=== PATIENT | female | born 1940 | race Caucasian/White ===

== ENCOUNTER 2018-06-02 15:08 | Emergency (ER) | payer OTHER ==
[2018-06-02] MEDS ORDERED: FLEET ENEMA ADULT PR ONE (17:52)
[2018-06-02] MEDS ORDERED: MAGNESIUM CITRATE 300 ML BOT ONE (17:53)
--- NOTE | 2018-06-02 17:57 | RAD REPORT ---
EXAM DESCRIPTION: RAD - Abdomen 1 View (KUB) - 06/02/2018 5:51 pm CLINICAL HISTORY: constipation, rectal pain Pain COMPARISON: No comparisons FINDINGS: The bowel gas pattern is non-obstructive. No evidence of free air or pneumatosis. Small ca lcification projects in the region of the left kidney. Cholecystectomy clips. Prominent stool is seen retained in the rectum. IMPRESSION: Prominent stool is retained in the rectum.
--- NOTE | 2018-06-02 18:42 | ER ---
Nurse's Notes [facility] Name: Charlene Stokes Age: 77 yrs Sex: Female : 1940 Arrival Date: 06/02/2018 Time: 15:09 Bed 15 Private MD: Garcia Eduardo Diagnosis: Constipation, unspecified Presentation: 06/02 15:39 Transition of care: patient was not received from another setting of care. Onset of tw2 symptoms was June 02, 2018. Risk Assessment: Do you want to hurt yourself or someone else? Patient reports no desire to harm self or others. Initial Sepsis Screen: Does the patient meet any 2 criteria? No. Patient's initial sepsis screen is negative. Does the patient have a suspected source of infection? No. Patient's initial sepsis screen is negative. Care prior to arrival: None. 15:39 Method Of Arrival: Wheelchair tw2 15:42 Acuity: KELLE 3 tw2 15:46 Presenting complaint: Patient states: pt has been taking cipro for UTI and it has been tw2 about 4 days since last BM, +nausea, possible rectal prolapse. Historical: - Allergies: 15:41 PENICILLINS; tw2 - Home Meds: 15:41 Plavix Oral [Active]; Metoprolol Tartrate Oral [Active]; Crestor Oral [Active]; tw2 Glimepiride Oral [Active]; Aspirin Oral [Active]; - PSHx: 15:41 heart valve replacement; Hysterectomy; Appendectomy; Cholecystectomy; tw2 - Immunization history:: Adult Immunizations. - Social history:: Smoking status: . - Ebola Screening: : Patient denies travel to an Ebola-affected area in the 21 days before illness onset. Screenin:38 Abuse screen: Denies threats or abuse. Nutritional screening: No deficits noted. tw2 Tuberculosis screening: No symptoms or risk factors identified. Fall Risk Secondary diagnosis (15 points) impaired mobility. Assessment: 15:47 General: Appears in no apparent distress. unkempt, Behavior is calm, cooperative, tw2 appropriate for age. General: Smells of animal odor. Pain: Complains of pain in abdomen. Neuro: Level of Consciousness is awake, alert, obeys commands, Oriented to person, place, time, situation. Cardiovascular: Denies chest pain, shortness of breath, Heart tones S1 S2 Patient's skin is warm and dry. Respiratory: Airway is patent Respiratory effort is even, unlabored, Respiratory pattern is regular, symmetrical, Breath sounds are clear bilaterally. GI: Bowel sounds present X 4 quads. Abd is soft X 4 quads Reports constipation, nausea. : Reports recent uti. EENT: No signs and/or symptoms were reported regarding the EENT system. Derm: No signs and/or symptoms reported regarding the dermatologic system. Musculoskeletal: Range of motion: intact in all extremities. 16:53 Reassessment: Patient appears in no apparent distress at this time. No changes from tw2 previously documented assessment. Patient and/or family updated on plan of care and expected duration. Pain level reassessed. Patient is alert, oriented x 3, equal unlabored respirations, skin warm/dry/pink. pt reports bm "but it was like a few small little pellets". 17:48 Reassessment: Patient appears in no apparent distress at this time. No changes from tw2 previously documented assessment. Patient and/or family updated on plan of care and expected duration. Pain level reassessed. Patient is alert, oriented x 3, equal unlabored respirations, skin warm/dry/pink. 18:48 Reassessment: Patient appears in no apparent distress at this time. Patient and/or tw2 family updated on plan of care and expected duration. Pain level reassessed. Patient is alert, oriented x 3, equal unlabored respirations, skin warm/dry/pink. pt had LARGE BM and states "i feel much better now" Patient states feeling better. Patient states symptoms have improved. Vital Signs: 15:45 BP 156 / 68; Pulse 81; Resp 17; Temp 98(TE); Pulse Ox 99% on R/A; Weight 81.65 kg (R); tw2 Height 5 ft. 3 in. (160.02 cm); Pain 0/10; 16:52 BP 111 / 85; Pulse 66; Resp 17; Pulse Ox 100% on R/A; tw2 17:48 BP 137 / 55; Pulse 86; Resp 17; Pulse Ox 100% on R/A; tw2 18:48 BP 137 / 55; Pulse 73; Resp 17; Pulse Ox 99% on R/A; tw2 15:45 Body Mass Index 31.89 (81.65 kg, 160.02 cm) tw2 ED Course: 15:09 Patient arrived in ED. 15:10 Garcia Eduardo DO is Private Physician. mr 15:38 Margarita Zavaleta, RN is Primary Nurse. tw2 15:41 Arm band placed on. tw2 15:41 Bed in low position. Call light in reach. Adult w/ patient. Pulse ox on. NIBP on. tw2 15:42 Triage completed. tw2 15:53 Germán Hercules PA is PHCP. [facility] 15:53 Sav Murray MD is Attending Physician. [facility] 17:52 Abdomen 1 View (KUB) XRAY In Process Unspecified. EDMS 18:41 Garcia Eduardo DO is Referral Physician. jm 18:49 No provider procedures requiring assistance completed. Patient did not have IV access tw2 during this emergency room visit. Administered Medications: 17:47 Drug: Magnesium Citrate Liquid 300 ml Route: PO; tw2 18:49 Follow up: Response: No adverse reaction tw2 18:02 Drug: Fleet Enema 133 ml Route: MD; tw2 18:49 Follow up: Response: No adverse reaction; Marked relief of symptoms tw2 Outcome: 18:41 Discharge ordered by . jmm 18:49 Discharged to home ambulatory, with family. tw2 18:49 Condition: stable 18:49 Discharge instructions given to patient, family, Instructed on discharge instructions, follow up and referral plans. medication usage, Demonstrated understanding of instructions, follow-up care, medications, Prescriptions given X 1. 18:50 Patient left the ED. tw2 Signatures: Dispatcher [employer] EDAZ Germán Hercules PA PA [facility] [place] Prakash mr Maragrita Zavaleta, RN RN tw2
--- NOTE | 2018-06-02 18:43 | EDPHYS ---
Physician Documentation [facility] Name: Charlene Stokes Age: 77 yrs Sex: Female : 1940 Arrival Date: 06/02/2018 Time: 15:09 Bed 15 Private MD: Garcia Eduardo ED Physician Sav Murray HPI: 06/02 15:59 This 77 yrs old Female presents to ER via Wheelchair with complaints of jmm Constipation. 15:59 Onset: The symptoms/episode began/occurred today. Patient states she has not had a full jmm bowel movement in approx 5 days. Patient complains of rectal pain. Patient denies abdominal pain, denies fever, denies vomiting. . Historical: - Allergies: 15:41 PENICILLINS; tw2 - Home Meds: 15:41 Plavix Oral [Active]; Metoprolol Tartrate Oral [Active]; Crestor Oral [Active]; tw2 Glimepiride Oral [Active]; Aspirin Oral [Active]; - PSHx: 15:41 heart valve replacement; Hysterectomy; Appendectomy; Cholecystectomy; tw2 - Immunization history:: Adult Immunizations. - Social history:: Smoking status: . - Ebola Screening: : Patient denies travel to an Ebola-affected area in the 21 days before illness onset. ROS: 15:59 Constitutional: Negative for fever, chills, and weight loss, Cardiovascular: Negative jmm for chest pain, palpitations, and edema, Respiratory: Negative for shortness of breath, cough, wheezing, and pleuritic chest pain. 15:59 Abdomen/GI: Positive for constipation. 15:59 All other systems are negative. Exam: 15:59 Head/Face: atraumatic. Eyes: EOMI, no conjunctival erythema appreciated ENT: Moist jmm Mucus Membranes Neck: Trachea midline, Supple Chest/axilla: Normal chest wall appearance and motion. Cardiovascular: Regular rate and rhythm. No edema appreciated Respiratory: Normal respirations, no respiratory distress appreciated 15:59 Constitutional: The patient appears in no acute distress, alert, awake. 15:59 Abdomen/GI: Inspection: abdomen appears normal, Bowel sounds: normal, Palpation: abdomen is soft and non-tender, in all quadrants. 15:59 Back: ROM is normal. 15:59 Musculoskeletal/extremity: ROM: intact in all extremities. 15:59 Skin: Appearance: Color: normal in color. 15:59 Neuro: Orientation: is normal, Mentation: is normal, Memory: is normal. 15:59 Psych: Behavior/mood is pleasant, cooperative. Vital Signs: 15:45 BP 156 / 68; Pulse 81; Resp 17; Temp 98(TE); Pulse Ox 99% on R/A; Weight 81.65 kg (R); tw2 Height 5 ft. 3 in. (160.02 cm); Pain 0/10; 16:52 BP 111 / 85; Pulse 66; Resp 17; Pulse Ox 100% on R/A; tw2 17:48 BP 137 / 55; Pulse 86; Resp 17; Pulse Ox 100% on R/A; tw2 18:48 BP 137 / 55; Pulse 73; Resp 17; Pulse Ox 99% on R/A; tw2 15:45 Body Mass Index 31.89 (81.65 kg, 160.02 cm) tw2 MDM: 15:59 Patient medically screened. stella 18:40 Data reviewed: vital signs, nurses notes. Counseling: I had a detailed discussion with susana the patient and/or guardian regarding: the historical points, exam findings, and any diagnostic results supporting the discharge/admit diagnosis, radiology results, the need for outpatient follow up, to return to the emergency department if symptoms worsen or persist or if there are any questions or concerns that arise at home. ED course: Patient is alert and non toxic in appearance. Symptoms relieved in the ED. KUB consistent with constipation. Not concerning with obstruction. . 06/02 16:05 Order name: Abdomen 1 View (KUB) XRAY; Complete Time: 18:02 [facility] Administered Medications: 17:47 Drug: Magnesium Citrate Liquid 300 ml Route: PO; tw2 18:49 Follow up: Response: No adverse reaction tw2 18:02 Drug: Fleet Enema 133 ml Route: NH; tw2 18:49 Follow up: Response: No adverse reaction; Marked relief of symptoms tw2 Disposition: 06/03 09:47 Co-signature as Attending Physician, Sav Murray MD I agree with the assessment and [facility] plan of care. Disposition: 06/02/18 18:41 Discharged to Home. Impression: Constipation, unspecified. - Condition is Stable. - Discharge Instructions: Constipation, Adult. - Prescriptions for Miralax 17 gram/dose Oral - take 1 packet by ORAL route once daily dilute powder in 8 ounces of water or juice; 1 Pack. - Medication Reconciliation Form, Thank You Letter, Antibiotic Education, Prescription Opioid Use form. - Follow up: Garcia Eduardo DO; When: 2 - 3 days; Reason: Recheck today's complaints, Continuance of care, Re-evaluation by your physician. Signatures: Dispatcher [employer] EDSav Adames MD MD cha Mickail, Joel, PA PA Margarita Adan RN RN tw2 Corrections: (The following items were deleted from the chart) 06/02 18:50 18:41 06/02/2018 18:41 Discharged to Home. Impression: Constipation, unspecified. tw2 Condition is Stable. Forms are Medication Reconciliation Form, Thank You Letter, Antibiotic Education, Prescription Opioid Use. Follow up: Garcia Eduardo; When: 2 - 3 days; Reason: Recheck today's complaints, Continuance of care, Re-evaluation by your physician. susana
[2018-06-02 19:00] VITALS: TEMP 98
[2018-06-02 19:09] VITALS: BP 137/55
[2018-06-02 19:11] VITALS: O2SAT 99
== END 2018-06-02 18:50 | disposition home or self-care (01) ==
LOC: ER 15:08
DX: K59.00 Constipation, unspecified (principal); Z95.2 Presence of prosthetic heart valve; Z79.01 Long term (current) use of anticoagulants; Z79.82 Long term (current) use of aspirin; Z88.0 Allergy status to penicillin
CPT/HCPCS: 74018; 99284

== ENCOUNTER 2019-02-02 11:11 | Emergency (ER) | payer OTHER ==
[2011-07-31 16:17] VITALS: BP 96/56
[2019-02-02] MEDS ORDERED: NA CHLORIDE 0.9% 500 ML ONE (12:03)
[2019-02-02 12:04] LABS: Absolute Lymphocytes (CBC) 1.1 K/uL (0.7-4.9); Basophils % 0.8 % (0-1.3); Hematocrit 27.7 % (36.0-45.0); Lymphocytes % 17.1 % (15.3-44.8); MPV 7.7 fL (7.6-11.3); RBC Red Blood Cell Count 2.87 M/uL (3.86-4.86)
[2019-02-02 12:09] LABS: Anisocytosis 1+; Blood Morphology Comment NOTED (NOT SEEN); Platelet Estimate ADEQ; Urine White Blood Cell Casts OK
[2019-02-02 12:25] LABS: Bilirubin Direct 0.2 mg/dL (0-0.2); Bilirubin Total 0.5 mg/dL (0.2-1.0); Potassium 3.6 mmol/L (3.5-5.1); Protein, Total 6.5 g/dL (6.4-8.2)
[2019-02-02] MEDS ORDERED: PANTOPRAZOLE 40 MG INJ ONE (13:01)
[2019-02-02] MEDS ORDERED: WATER FOR INJ,STERILE 10 ML ONE (13:01)
--- NOTE | 2019-02-02 13:12 | RAD REPORT ---
EXAM DESCRIPTION: CT - Abdomen Pelvis W Contrast - 02/02/2019 12:46 pm CLINICAL HISTORY: Abdominal pain diarrhea COMPARISON: CT lumbar spine 2008 TECHNIQUE: Computed axial tomography of the abdomen pelvis was obtained. 100 cc Isovue-300 was admin istered intravenously. Oral contrast was not requested which limits evaluation of bowel. All CT scans are performed using dose optimization technique as appropriate and may include automated exposure control or mA/KV adjustment according to patient size. 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 Cholecystectomy. Small splenic cysts. Pancreas unremarkable. Small renal cysts. Vascular calcifications are present. The liver, spleen, pancreas, adrenal and kidneys appear unremark able. Large number of diverticula stem from the colon. Minimal stranding adjacent to the sigmoid colon. Spondylosis involves lumbar spine resulting spinal stenosis IMPRESSION: Minimal sigmoid diverticulitis
[2019-02-02 13:17] LABS: Protime INR 1.16
[2019-02-02] MEDS ORDERED: METRONIDAZOLE 500mg IVPB 500 MG/100 ML BAG IV ONE (13:25)
[2019-02-02] MEDS ORDERED: Levofloxacin500mg IV 500 MG/100 ML BAG IV ONE (13:25)
--- NOTE | 2019-02-02 13:28 | ER ---
Nurse's Notes [facility] Name: Charlene Stokes Age: 78 yrs Sex: Female : 1940 Arrival Date: 02/02/2019 Time: 11:14 Bed 23 Private MD: Diagnosis: Gastrointestinal hemorrhage, unspecified;Diverticulitis of large intestine without perforation or abscess without bleeding Presentation: 02/02 11:21 Presenting complaint: Patient states: Blood in stool x "a few days", watery diarrhea ss that began this morning, still with blood in it. Transition of care: patient was not received from another setting of care. Onset of symptoms was January 30, 2019. Risk Assessment: Do you want to hurt yourself or someone else? Patient reports no desire to harm self or others. Initial Sepsis Screen: Does the patient meet any 2 criteria? HR > 90 bpm. Does the patient have a suspected source of infection? No. Patient's initial sepsis screen is negative. Care prior to arrival: None. 11:21 Method Of Arrival: Ambulatory ss 11:21 Acuity: KELLE 2 ss Historical: - Allergies: 11:25 PENICILLINS; ss - PMHx: 11:25 Hypertension; Diabetes - NIDDM; CAD; ss - PSHx: 11:25 heart valve replacement; Hysterectomy; Appendectomy; Cholecystectomy; ss - Immunization history:: Adult Immunizations up to date. - Social history:: Smoking status: Patient/guardian denies using tobacco. - Ebola Screening: : Patient denies exposure to infectious person Patient denies travel to an Ebola-affected area in the 21 days before illness onset. Screenin:50 Abuse screen: Denies threats or abuse. Denies injuries from another. Nutritional ca1 screening: No deficits noted. Tuberculosis screening: No symptoms or risk factors identified. Fall Risk IV access (20 points). Assessment: 11:50 General: Appears in no apparent distress. comfortable, Behavior is calm, cooperative, ca1 appropriate for age. Pain: Denies pain. Neuro: Level of Consciousness is awake, alert, obeys commands, Oriented to person, place, time, situation. Cardiovascular: Heart tones S1 S2 present Capillary refill < 3 seconds Patient's skin is warm and dry. Respiratory: Airway is patent Respiratory effort is even, unlabored, Respiratory pattern is regular, symmetrical, Breath sounds are clear bilaterally. GI: Abdomen is flat, non-distended, Bowel sounds present X 4 quads. Abd is soft and non tender X 4 quads. Reports diarrhea, bloody stool, since couple days ago. : No deficits noted. No signs and/or symptoms were reported regarding the genitourinary system. EENT: No deficits noted. No signs and/or symptoms were reported regarding the EENT system. Derm: Skin is intact, is healthy with good turgor, Skin is pink, warm \\T\\ dry. Musculoskeletal: Circulation, motion, and sensation intact. Capillary refill < 3 seconds, Range of motion: intact in all extremities. 12:30 Reassessment: Patient appears in no apparent distress at this time. Patient and/or ca1 family updated on plan of care and expected duration. Pain level reassessed. Patient is alert, oriented x 3, equal unlabored respirations, skin warm/dry/pink. BM X 1. Loose and bloody. 13:45 Reassessment: Patient appears in no apparent distress at this time. Patient and/or ca1 family updated on plan of care and expected duration. Pain level reassessed. Patient is alert, oriented x 3, equal unlabored respirations, skin warm/dry/pink. 14:25 Reassessment: Patient appears in no apparent distress at this time. Patient is alert, ca1 oriented x 3, equal unlabored respirations, skin warm/dry/pink. Reported BM 2 more. Loose and dark in color. 14:37 Reassessment: Pt c/o "feeling funny". VS checked, stable. Notified provider. Pt ca1 instructed on bedrest and BM on diapers instead of bedside commode. Reassessment: Called report to PAU Weaver at [facility]. Vital Signs: 11:25 BP 155 / 86; Pulse 107; Resp 18; Temp 98.1(TE); Pulse Ox 99% on R/A; Weight 72.57 kg; ss Height 5 ft. 6 in. (167.64 cm); Pain 0/10; 12:30 BP 137 / 78; Pulse 94; Resp 17 S; Pulse Ox 100% on R/A; ca1 13:30 BP 141 / 91; Pulse 91; Resp 17 S; Pulse Ox 99% on R/A; ca1 14:25 BP 153 / 85; Pulse 67; Resp 17; Pulse Ox 100% on R/A; ca1 11:25 Body Mass Index 25.82 (72.57 kg, 167.64 cm) ss ED Course: 11:14 Patient arrived in ED. rg4 11:24 Triage completed. ss 11:25 Arm band placed on right wrist. ss 11:35 Gamaliel Coyle NP is PHCP. pm1 11:35 Cecile Lawson MD is Attending Physician. pm1 11:35 Ольга Gayle RN is Primary Nurse. ca1 11:50 Patient has correct armband on for positive identification. Placed in gown. Bed in low ca1 position. Call light in reach. Side rails up X 1. Pulse ox on. NIBP on. Warm blanket given. 11:50 No provider procedures requiring assistance completed. Initial lab(s) drawn, by nh, ca1 sent to lab. Inserted saline lock: 20 gauge in right antecubital area, using aseptic technique. Blood collected. 12:03 Radiology exam delayed due to lab results not completed at this time. (BUN/Creatinine). vm2 12:47 CT Abd/Pelvis - IV Contrast Only In Process Unspecified. EDMS 12:47 CT completed. Patient tolerated procedure well. Patient moved back from CT. vm2 13:00 Inserted saline lock: 20 gauge in right forearm, using aseptic technique. ,using ca1 aseptic technique. by PAU Burks Blood collected. 13:23 initiated a transfer with Antonietta from the [facility] transfer center. eb 13:[address] Parsons the Hospitalist loss control manager for [facility] with Gamaliel SHELL for eb patient transfer consultation. 14:11 administrative approval given by Antonietta Hernandez / patient has been accepted to [facility] eb 11D [id number] as a direct admit./ Dr. Owen Parsons has accepted the patient in transfer. report to be called to [phone]. 15:19 Patient transferred, IV remains in place. tr5 Administered Medications: 12:06 Drug: NS 0.9% 500 ml Route: IV; Rate: bolus; Site: right antecubital; ca1 12:50 Follow up: IV Status: Completed infusion; IV Intake: 500ml ca1 13:00 Drug: ProTONIX 40 mg Route: IVP; Site: right antecubital; ca1 13:40 Follow up: Response: No adverse reaction ca1 13:25 Drug: Flagyl 500 mg Volume: 100 ml; Route: IVPB; Rate: 200 ml/hr; Infused Over: 30 ca1 mins; Site: right antecubital; 14:01 Follow up: Response: No adverse reaction; IV Status: Completed infusion ca1 13:35 Drug: ProTONIX 8 mg/hr Route: IV; Rate: 25 ml/hr; Site: right forearm; ca1 14:30 Follow up: Response: No adverse reaction; IV Status: Infusion continued upon transfer ca1 14:02 Drug: LevaQUIN 500 mg Volume: 100 ml; Route: IVPB; Infused Over: 60 mins; Site: right ca1 antecubital; 15:00 Follow up: Response: No adverse reaction; IV Status: Completed infusion ca1 Intake: 12:50 IV: 500ml; Total: 500ml. ca1 Outcome: 13:24 ER care complete, transfer ordered by . pm1 15:19 Transferred by ground EMS to [facility], Transfer form completed. tr5 15:19 Condition: stable 15:19 Instructed on the need for transfer. 15:20 Patient left the ED. tr5 Signatures: Dispatcher [employer] EDOneyda Qiu RN RN ss Gamaliel Coyle, SULEMAN CONVEYOR OPERATOR pm1 Lori Bass Enedina Ramírez 2 Arielle Briseno Cheryl, RN RN ca1 Parveen Templeton RN RN tr5 Corrections: (The following items were deleted from the chart) 14:39 14:25 Reassessment: Patient appears in no apparent distress at this time. Patient is ca1 alert, oriented x 3, equal unlabored respirations, skin warm/dry/pink. Reported BM 2 more. Loose and dark in color. ca1
--- NOTE | 2019-02-02 13:29 | EDPHYS ---
Physician Documentation [facility] Name: Charlene Stokes Age: 78 yrs Sex: Female : 1940 Arrival Date: 02/02/2019 Time: 11:14 Bed 23 Private MD: ED Physician Cecile Lawson HPI: 02/02 11:51 This 78 yrs old Female presents to ER via Ambulatory with complaints of pm1 Rectal Bleeding. 11:51 The patient presents to the emergency department with bleeding from the rectum/anus. pm1 Onset: The symptoms/episode began/occurred 3 day(s) ago. Context: the patient has no known special context relating to the rectal area complaint(s). Modifying factors: The symptoms are alleviated by nothing, The symptoms are aggravated by bowel movement. Associate signs and symptoms: Pertinent positives: diarrhea, lower GI bleeding, Pertinent negatives: abdominal pain, constipation, fever, vomiting. The patient has experienced a previous episode, many years ago, due to polyps. The patient has not recently seen a physician, the patient's primary care provider is Dr. Eduardo. 11:51 Patient reports 3 days ago onset of possible melena, dark syrup-like bowel movement. pm1 Patient thought it would self resolve. Reports onset today of watery diarrhea with bright red blood present. No abdominal pain, chest pain, shortness of breath, headache, dizziness. Historical: - Allergies: 11:25 PENICILLINS; ss - PMHx: 11:25 Hypertension; Diabetes - NIDDM; CAD; ss - PSHx: 11:25 heart valve replacement; Hysterectomy; Appendectomy; Cholecystectomy; ss - Immunization history:: Adult Immunizations up to date. - Social history:: Smoking status: Patient/guardian denies using tobacco. - Ebola Screening: : Patient denies exposure to infectious person Patient denies travel to an Ebola-affected area in the 21 days before illness onset. ROS: 11:51 Constitutional: Negative for fever, chills, and weight loss, Eyes: Negative for injury, pm1 pain, redness, and discharge, ENT: Negative for injury, pain, and discharge, Neck: Negative for injury, pain, and swelling, Cardiovascular: Negative for chest pain, palpitations, and edema, Respiratory: Negative for shortness of breath, cough, wheezing, and pleuritic chest pain. 11:51 Back: Negative for injury and pain, : Negative for injury, bleeding, discharge, and swelling, MS/Extremity: Negative for injury and deformity, Skin: Negative for injury, rash, and discoloration, Neuro: Negative for headache, weakness, numbness, tingling, and seizure. 11:51 Abdomen/GI: Positive for diarrhea, rectal bleeding, Negative for abdominal pain, nausea and vomiting, constipation, abdominal cramps. Exam: 11:51 Constitutional: This is a well developed, well nourished patient who is awake, alert, pm1 and in no acute distress. Head/Face: Normocephalic, atraumatic. Eyes: Pupils equal round and reactive to light, extra-ocular motions intact. Lids and lashes normal. Conjunctiva and sclera are non-icteric and not injected. Cornea within normal limits. Periorbital areas with no swelling, redness, or edema. ENT: Nares patent. No nasal discharge, no septal abnormalities noted. Tympanic membranes are normal and external auditory canals are clear. Oropharynx with no redness, swelling, or masses, exudates, or evidence of obstruction, uvula midline. Mucous membranes moist. Neck: Trachea midline, no thyromegaly or masses palpated, and no cervical lymphadenopathy. Supple, full range of motion without nuchal rigidity, or vertebral point tenderness. No Meningismus. Chest/axilla: Normal chest wall appearance and motion. Nontender with no deformity. No lesions are appreciated. Respiratory: Lungs have equal breath sounds bilaterally, clear to auscultation and percussion. No rales, rhonchi or wheezes noted. No increased work of breathing, no retractions or nasal flaring. Abdomen/GI: Soft, non-tender, with normal bowel sounds. No distension or tympany. No guarding or rebound. No evidence of tenderness throughout. Back: No spinal tenderness. No costovertebral tenderness. Full range of motion. Skin: Warm, dry with normal turgor. Normal color with no rashes, no lesions, and no evidence of cellulitis. MS/ Extremity: Pulses equal, no cyanosis. Neurovascular intact. Full, normal range of motion. 11:51 Neuro: Orientation: is normal, Motor: is normal, moves all fours. Vital Signs: 11:25 BP 155 / 86; Pulse 107; Resp 18; Temp 98.1(TE); Pulse Ox 99% on R/A; Weight 72.57 kg; ss Height 5 ft. 6 in. (167.64 cm); Pain 0/10; 12:30 BP 137 / 78; Pulse 94; Resp 17 S; Pulse Ox 100% on R/A; ca1 13:30 BP 141 / 91; Pulse 91; Resp 17 S; Pulse Ox 99% on R/A; ca1 14:25 BP 153 / 85; Pulse 67; Resp 17; Pulse Ox 100% on R/A; ca1 11:25 Body Mass Index 25.82 (72.57 kg, 167.64 cm) ss MDM: 11:35 Patient medically screened. pm1 11:57 Data reviewed: vital signs. pm1 13:22 Data interpreted: Pulse oximetry: on room air is 99 %. Interpretation: normal. pm1 Counseling: I had a detailed discussion with the patient and/or guardian regarding: the historical points, exam findings, and any diagnostic results supporting the discharge/admit diagnosis, lab results, radiology results, the need to transfer to another facility, [facility] does not immediately have the required specialist. 13:40 Physician consultation: [facility] Hospitalist Jaqueline was contacted at 13:41, regarding pm1 regarding transfer, patient's condition, and will see patient agrees no need for blood transfusion at the moment. 02/02 11:49 Order name: Basic Metabolic Panel; Complete Time: 12:33 pm1 02/02 11:49 Order name: CBC with Diff; Complete Time: 12:13 pm1 02/02 11:49 Order name: Creatinine for Radiology; Complete Time: 12:33 pm1 02/02 11:49 Order name: Hepatic Function; Complete Time: 12:33 pm1 02/02 11:49 Order name: Lipase; Complete Time: 12:33 pm1 02/02 11:49 Order name: PT-INR; Complete Time: 13:36 pm1 02/02 11:49 Order name: Type And Screen; Complete Time: 14:08 pm1 02/02 11:49 Order name: CT Abd/Pelvis - IV Contrast Only; Complete Time: 14:39 pm1 02/02 12:11 Order name: CBC Smear Scan; Complete Time: 12:13 EDMS 02/02 12:33 Order name: Occult Blood--Ancillary eb 02/02 14:33 Order name: ABO/RH no charge; Complete Time: 14:39 EDMS 02/02 11:49 Order name: IV Saline Lock; Complete Time: 11:55 pm1 02/02 11:49 Order name: Labs collected and sent; Complete Time: 11:55 pm1 Administered Medications: 12:06 Drug: NS 0.9% 500 ml Route: IV; Rate: bolus; Site: right antecubital; ca1 12:50 Follow up: IV Status: Completed infusion; IV Intake: 500ml ca1 13:00 Drug: ProTONIX 40 mg Route: IVP; Site: right antecubital; ca1 13:40 Follow up: Response: No adverse reaction ca1 13:25 Drug: Flagyl 500 mg Volume: 100 ml; Route: IVPB; Rate: 200 ml/hr; Infused Over: 30 ca1 mins; Site: right antecubital; 14:01 Follow up: Response: No adverse reaction; IV Status: Completed infusion ca1 13:35 Drug: ProTONIX 8 mg/hr Route: IV; Rate: 25 ml/hr; Site: right forearm; ca1 14:30 Follow up: Response: No adverse reaction; IV Status: Infusion continued upon transfer ca1 14:02 Drug: LevaQUIN 500 mg Volume: 100 ml; Route: IVPB; Infused Over: 60 mins; Site: right ca1 antecubital; 15:00 Follow up: Response: No adverse reaction; IV Status: Completed infusion ca1 Disposition: 02/02/19 13:24 Transfer ordered to [facility]. Diagnosis are Gastrointestinal hemorrhage, unspecified, Diverticulitis of large intestine without perforation or abscess without bleeding. - Reason for transfer: Higher level of care. - Accepting physician is [facility]. - Condition is Stable. - Problem is new. - Symptoms have improved. Addendum: 02/03/2019 16:44 Co-signature as Attending Physician, Cecile Lawson MD. m a2 Signatures: Dispatcher [employer] [facility] Oneyda Parry RN RN ss Gamaliel Coyle, CONDENSER TESTER CONDENSER TESTER pm1 Cecile Lawson MD MD ma2 Ольга Gayle RN RN ca1 Parveen Templeton RN RN tr5 Corrections: (The following items were deleted from the chart) 02/02 15:20 13:24 02/02/2019 13:24 Transfer ordered to [facility]. Diagnosis is tr5 Gastrointestinal hemorrhage, unspecified; Diverticulitis of large intestine without perforation or abscess without bleeding. Reason for transfer: Higher level of care. Accepting physician is [facility]. Condition is Stable. Problem is new. Symptoms have improved. pm1
[2019-02-02] MEDS ORDERED: PANTOPRAZOLE INJ 80 MG in NA CHLORIDE 0.9% 250 ML IV SCH ×4 (14:00)
== END 2019-02-02 15:20 | disposition short-term general hospital (02) ==
LOC: ER 11:11
DX: K57.32 Diverticulitis of large intestine without perforation or abscess without bleeding (principal); I10 Essential (primary) hypertension; Z88.0 Allergy status to penicillin
CPT/HCPCS: 85025; 80048; 36415; 86900; 86850; 85610; 86901; 80076; 83690; 74177; 99285; Q9967; C9113 ×2; J7030; J7040; 82272; 96361; 96365; 96367; 96368; 96375

== ENCOUNTER 2019-02-28 10:16 | Emergency (ER) | payer OTHER ==
--- OUTSIDE RECORDS SUMMARY | 2019-02-28 10:18 | XMS REPORT ---
:1940 [facility] Address [address] [place] [address] Dr. Fish [address] [place] [id number] Care Team Providers Name Role Phone Unavailable Unavailable Unavailable Problems This patient has no known problems. Allergies, Adverse Reactions, Alerts This patient has no known allergies or adverse reactions. Medications This patient has no known medications.
[2019-02-28 10:49] LABS: Absolute Lymphocytes (CBC) 0.8 K/uL (0.7-4.9); Basophils % 1.1 % (0-1.3); Hematocrit 34.1 % (36.0-45.0); RBC Red Blood Cell Count 3.46 M/uL (3.86-4.86)
--- NOTE | 2019-02-28 10:55 | RAD REPORT ---
EXAM DESCRIPTION: RAD - Chest Single View - 02/28/2019 10:44 am CLINICAL HISTORY: Stroke protocol chest film, left-sided numbness, weakness and shortness of breath COMPARISON: June 2014 TECHNIQUE: AP portable chest image was obtained 1041 hours . FINDINGS: Lung volumes are relatively low but clear of a peripheral mass or consolidation. No failur e or volume overload. Interstitial pattern is stable. Heart and vasculature are normal. No measurable pleural effusion and no pneumothorax. No acute bony abnormality seen. No acute aortic findings suspe cted. IMPRESSION: No acute cardiopulmonary process.
[2019-02-28 10:56] LABS: Protime INR 1.02
[2019-02-28 11:02] LABS: Potassium 3.7 mmol/L (3.5-5.1)
--- NOTE | 2019-02-28 11:05 | RAD REPORT ---
EXAM DESCRIPTION: CT - Ct Stroke Brain Wo Cont - 02/28/2019 10:48 am CLINICAL HISTORY: WEAKNESS Headache, CVA symptomology COMPARISON: HEAD BRAIN W O CONTRAST dated 07/18/2014 TECHNIQUE: All CT scans are performed using dose optimization technique as appropriate and may inclu de automated exposure control or mA/KV adjustment according to patient size. FINDINGS: No intracranial hemorrhage, hydrocephalus or extra-axial fluid collection.Moderate general ized brain atrophy is present with moderate periventricular and deep white matter chronic microvascul ar ischemic changes.No areas of brain edema or evidence of midline shift. The paranasal sinuses and mastoids are clear. The calvarium is intact. Vertebral arteries are heavily calcified. IMPRESSION: No acute intracranial abnormality. The findings were discussed with Vitaliy Kinney on 02/28/2019 at 11 a.m. by telephone.
[2019-02-28] MEDS ORDERED: ASPIRIN 81 MG CHEWABLE TABLET ONE (11:17)
[2019-02-28] MEDS ORDERED: LORazepam 2 MG/ML VIAL ONE (11:39)
--- NOTE | 2019-02-28 12:46 | RAD REPORT ---
EXAM DESCRIPTION: MRI - Brain Wo Cont - 02/28/2019 12:37 pm CLINICAL HISTORY: WEAKNESS Headache, drowsiness, CVA symptomology COMPARISON: Ct Stroke Brain Wo Cont dated 02/28/2019 TECHNIQUE: Multi-sequence, multiplanar MR imaging of the brain was performed without contrast. FINDINGS: No intracranial hemorrhage, hydrocephalus or extra-axial fluid collections.Moderate conflu ent T2/FLAIR hyperintensity in the periventricular and deep white matter is present compatible with c hronic microvascular ischemic changes. No edema or shift of midline structures. No findings to suspec t brain mass.Mild generalized brain atrophy. DWI is negative for acute CVA. Midline structures are normally formed. Mastoid air cells and paranasal sinuses are clear. IMPRESSION: Negative for acute CVA or other acute intracranial abnormality.
[2019-02-28 12:53] LABS: Urine Blood NEGATIVE (NEG); Urine Glucose NEGATIVE (NEG); Urine Protein NEGATIVE (NEG); Urine Specific Gravity 1.015 (1.005-1.030)
--- NOTE | 2019-02-28 13:25 | ER ---
Nurse's Notes [facility] Name: Charlene Stokes Age: 78 yrs Sex: Female : 1940 Arrival Date: 02/28/2019 Time: 10:18 Bed 4 Private MD: Diagnosis: Transient cerebral ischemic attacks and related syndromes Presentation: 02/28 10:30 Presenting complaint: Patient states: noticed left arm weakness when she got up at 7 am iw today, also had left leg weakness, no drift in arm, states weakness is improving but not completely resolved, was taken off plavix a month ago due to GI bleed, last known well is 1130 pm yesterday. Transition of care: patient was not received from another setting of care. Onset of symptoms was February 27, 2019. Risk Assessment: Do you want to hurt yourself or someone else? Patient reports no desire to harm self or others. Initial Sepsis Screen: Does the patient meet any 2 criteria? No. Patient's initial sepsis screen is negative. Does the patient have a suspected source of infection? No. Patient's initial sepsis screen is negative. Care prior to arrival: None. 10:30 Method Of Arrival: Wheelchair iw 10:30 Acuity: KELLE 2 iw 10:35 No acute neurological deficit is noted. The patients blood glucose was checked before iw arriving to the hospital and was found to be normal. Triage Assessment: 11:00 The onset of the patients symptoms was more than six hours ago. General: Behavior is vc calm, cooperative. General: Appears in no apparent distress. well groomed. 11:00 The onset of the patients symptoms was February 27, 2019 at 23:00. Neuro: Reports. vc Stroke Activation: Symptom onset > 6 hours Physician: Stroke Attending; Name: ; Notified At: ; Arrived At: Physician: Chief Stroke Resident; Name: ; Notified At: ; Arrived At: Physician: Stroke Resident; Name: ; Notified At: ; Arrived At: Physician: ED Attending; Name: ; Notified At: ; Arrived At: Physician: ED Resident; Name: ; Notified At: ; Arrived At: Historical: - Allergies: 10:47 PENICILLINS; iw - PMHx: 10:47 CAD; Diabetes - NIDDM; Hypertension; iw - PSHx: 10:47 heart valve replacement; Hysterectomy; Appendectomy; Cholecystectomy; iw - Immunization history:: Adult Immunizations up to date. - Social history:: Smoking status: Patient/guardian denies using tobacco. - Ebola Screening: : Patient negative for fever greater than or equal to 101.5 degrees Fahrenheit, and additional compatible Ebola Virus Disease symptoms Patient denies exposure to infectious person Patient denies travel to an Ebola-affected area in the 21 days before illness onset No symptoms or risks identified at this time. Screenin:12 Abuse screen: Denies threats or abuse. vc 12:52 Nutritional screening: No deficits noted. Tuberculosis screening: No symptoms or risk vc factors identified. Fall Risk IV access (20 points). Total Bartlett Fall Scale indicates No Risk (0-24 pts). Assessment: 10:35 VAN Scoring: Arm Drift: Patients demonstrates NO arm weakness. Patient is VAN Negative. iw 10:50 Patient has been NPO before screening. The patient is alert, and able to follow vc commands. The patient does not exhibit slurred or garbled speech. The patient is not exhibiting difficulty speaking. The patient does not exhibit difficulty understanding words. The patient is able to swallow own secretions with no drooling or need for suction. Patient tolerated one teaspoon of water. No drooling, immediate coughing, gurgling, or clearing of the throat was noted. The patient tolerated 90mL of water. No drooling, immediate coughing, gurgling, or clearing of the throat was noted. The patient passed the bedside swallow screening. Oral medications may be given as ordered. Contact Physician for further diet orders. Provider notified of bedside swallow screening results: Vitaliy ORR-Clint. T-PA (Activase) Screening: Contraindications: Patient reports onset of signs and symptoms of stroke greater than 6 hours ago: Yes. Pain: Complains of pain in left arm. Pain: Complains of pain in left leg. Neuro: Level of Consciousness is awake, alert, obeys commands, Oriented to person, place, time, situation, Denies weakness difficulty swallowing. Cardiovascular: Capillary refill < 3 seconds Edema is 1+ to left midcalf and left ankle. Respiratory: Airway is patent Trachea midline Respiratory effort is even, unlabored. GI: No signs and/or symptoms were reported involving the gastrointestinal system. : No deficits noted. 11:10 Reassessment: Patient states that she had a major GI bleed one week ago where she was vc transfused 3 units PRBCs, Notified provider. 11:30 Reassessment: Pt voices MRI anxiety. AREA SUPERVISOR was notified. . aa5 11:35 Reassessment: Pt refusing Ativan and MRI until she speaks to her grandson. . aa5 11:40 Reassessment: Pt's grandson speaking to pt at this time. Pt agrees to Ativan aa5 administration and agrees to MRI. . 12:45 Reassessment: Patient still away from room for MRI. vc 13:15 Reassessment: Patient is alert, oriented x 3, equal unlabored respirations, skin vc warm/dry/pink. Patient denies pain at this time. Patient states symptoms have improved. Vital Signs: 10:35 BP 169 / 94; Pulse 60; Resp 16; Temp 98.2; Pulse Ox 100% on R/A; Weight 70.76 kg; iw Height 5 ft. 6 in. (167.64 cm); Pain 0/10; 11:00 BP 134 / 108; Pulse 67; Resp 18; Pulse Ox 100% on R/A; vc 11:30 BP 164 / 77; Pulse 58; Resp 16; Pulse Ox 100% ; Pain 0/10; vc 13:39 BP 180 / 88; Pulse 60; Pulse Ox 100% on R/A; Pain 0/10; vc 10:35 Body Mass Index 25.18 (70.76 kg, 167.64 cm) iw NIH Stroke Scale Scores: 10:35 NIHSS Score: 2 iw 11:34 NIHSS Score: 0 la1 ED Course: 10:18 Patient arrived in ED. mr 10:28 Vitaliy Kinney FNP-C [facility]. la1 10:28 Rafa Lockhart MD is Attending Physician. la1 10:37 Yumiko Bajwa RN is Primary Nurse. vc 10:39 Initial lab(s) drawn, by me, sent to lab. Inserted saline lock: 22 gauge in right jb1 antecubital area, using aseptic technique. Blood collected. 10:45 Stroke CXR 1 View In Process Unspecified. EDMS 10:46 Triage completed. iw 10:48 Arm band placed on. iw 10:49 CT Stroke Brain w/o Contrast In Process Unspecified. EDMS 10:55 Patient has correct armband on for positive identification. Bed in low position. Call vc light in reach. Side rails up X 1. 10:55 monitoring engineer on. Pulse ox on. NIBP on. Warm blanket given. vc 11:02 EKG done, by time study technologist. reviewed by Vitaliy YANES. at1 12:36 MRI - Brain Wo Cont In Process Unspecified. EDMS 12:37 MRI completed. Patient tolerated well. em2 12:45 Patient moved back from MRI. vc 13:45 No provider procedures requiring assistance completed. IV discontinued, intact, vc bleeding controlled, No redness/swelling at site. Pressure dressing applied. 13:46 X-ray(s) taken. vc Administered Medications: 11:23 Not Given (Physician Discretion): Aspirin Chewable Tablet 324 mg PO once; 81 mg tablets la1 x 4 11:40 Drug: Ativan 0.5 mg Route: IVP; Site: right antecubital; aa5 11:45 Follow up: Response: No adverse reaction aa5 Point of Care Testing: Blood Glucose: 10:35 Blood Glucose: 205 mg/dL; iw Ranges: Outcome: 13:24 Discharge ordered by . la1 13:44 Patient left the ED. vc 13:45 Discharged to home ambulatory, Instructed to f/u with neurology. vc 13:45 Condition: improved 13:45 Discharge instructions given to patient, family, Instructed on discharge instructions, follow up and referral plans. Demonstrated understanding of instructions, follow-up care. NIH Stroke Scale - NIH Stroke Score Date: 02/28/2019 Time: 10:35 Total Score = 2 1a. Level of Consciousness (LOC) - 0(Alert) 1b. Level of Consciousness (LOC) (Year \T\ Age) - 0(Both) 1c. LOC Commands (Open \T\ Closes Eyes/Painter Assistant) - 0(Both) 2. Best Gaze (Lateral Gaze Paresis) - 0(Normal) 3. Visual Field Loss - 0(No visual loss) 4. Facial Palsy - 0(Normal) 5a. Left Arm: Motor (10-second hold) - 0(No drift) 5b. Right Arm: Motor (10-second hold) - 0(No drift) 6a. Left Leg: Motor (5-second hold - always test supine) - 1(Drift) 6b. Right Leg: Motor (5-second hold - always test supine) - 0(No drift) 7. Limb Ataxia (finger/nose \T\ heel/tejeda - test with eyes open) - 0(Absent) 8. Sensory Loss (pinprick arms/legs/face) - 1(Mild to moderate loss) 9. Best Language: Aphasia (description/naming/reading) - 0(No aphasia) 10. Dysarthria (speech clarity - read or repeat words) - 0(Normal) 11. Extinction and Inattention (visual/tactile/auditory/spatial/personal) - 0(No abnormality) Initials: NIH Stroke Scale - NIH Stroke Score Date: 02/28/2019 Time: 11:34 Total Score = 0 1a. Level of Consciousness (LOC) - 0(Alert) 1b. Level of Consciousness (LOC) (Year \T\ Age) - 0(Both) 1c. LOC Commands (Open \T\ Closes Eyes/Painter Assistant) - 0(Both) 2. Best Gaze (Lateral Gaze Paresis) - 0(Normal) 3. Visual Field Loss - 0(No visual loss) 4. Facial Palsy - 0(Normal) 5a. Left Arm: Motor (10-second hold) - 0(No drift) 5b. Right Arm: Motor (10-second hold) - 0(No drift) 6a. Left Leg: Motor (5-second hold - always test supine) - 0(No drift) 6b. Right Leg: Motor (5-second hold - always test supine) - 0(No drift) 7. Limb Ataxia (finger/nose \T\ heel/tejeda - test with eyes open) - 0(Absent) 8. Sensory Loss (pinprick arms/legs/face) - 0(Normal) 9. Best Language: Aphasia (description/naming/reading) - 0(No aphasia) 10. Dysarthria (speech clarity - read or repeat words) - 0(Normal) 11. Extinction and Inattention (visual/tactile/auditory/spatial/personal) - 0(No abnormality) Initials: la1 Signatures: Dispatcher [employer] Ochoa Hinds jb1 PrakashAfrica Irene, RN PAU iw Yasmin Mcdaniels RN RN aa5 Krishna Wu em2 Pat Ramírez, clinical resource manager EKG Tat1 Vitaliy Kinney, BIOMASS PLANT TECHNICIAN-C BIOMASS PLANT TECHNICIAN-Cla1 Yumiko Bajwa RN RN vc Corrections: (The following items were deleted from the chart) 10:49 10:48 VAN Scoring: Arm Drift: Patients demonstrates NO arm weakness. Patient is iw VAN Negative. iw 10:49 10:48 NIHSS Score: 2 [facility] 12:51 10:50 Patient has been NPO before screening. The patient is alert, and able to vc follow commands. The patient does not exhibit slurred or garbled speech. The patient is not exhibiting difficulty speaking. The patient does not exhibit difficulty understanding words. The patient is able to swallow own secretions with no drooling or need for suction. Patient tolerated one teaspoon of water. No drooling, immediate coughing, gurgling, or clearing of the throat was noted. The patient passed the bedside swallow screening. Oral medications may be given as ordered. Contact Physician for further diet orders. Provider notified of bedside swallow screening results: Vitaliy Kinney BIOMASS PLANT TECHNICIAN-C vc 12:55 12:52 General: Behavior is vc vc 12:55 12:52 The onset of the patients symptoms was more than six hours ago vc vc 12:55 12:52 General: Appears in no apparent distress. well groomed, vc vc 13:52 12:00 Reassessment: Patient still away from room for MRI. vc vc
--- NOTE | 2019-02-28 13:25 | EDPHYS ---
Physician Documentation [facility] Name: Charlene Stokes Age: 78 yrs Sex: Female : 1940 Arrival Date: 02/28/2019 Time: 10:18 Bed 4 Private MD: ED Physician Rafa Lockhart HPI: 02/28 11:28 This 78 yrs old Female presents to ER via Wheelchair with complaints of Left la1 side Numbness. 11:28 The patient's problem is reported as weakness, in the left upper extremity, in the left la1 lower extremity. Onset: The symptoms/episode began/occurred pt went to sleep at 1130, woke up with left sided arm and leg weakness that has since resolved. 11:31 Associated signs and symptoms: Pertinent negatives: headache, vomiting. Modifying la1 factors: The patient symptoms are alleviated by nothing, the patient symptoms are aggravated by nothing. Patient's baseline: Neuro: alert and fully oriented, Motor: no deficits, Ambulation: walks without assistance, Speech: normal. Historical: - Allergies: 10:47 PENICILLINS; iw - PMHx: 10:47 CAD; Diabetes - NIDDM; Hypertension; iw - PSHx: 10:47 heart valve replacement; Hysterectomy; Appendectomy; Cholecystectomy; iw - Immunization history:: Adult Immunizations up to date. - Social history:: Smoking status: Patient/guardian denies using tobacco. - Ebola Screening: : Patient negative for fever greater than or equal to 101.5 degrees Fahrenheit, and additional compatible Ebola Virus Disease symptoms Patient denies exposure to infectious person Patient denies travel to an Ebola-affected area in the 21 days before illness onset No symptoms or risks identified at this time. ROS: 11:32 Constitutional: Negative for fever, chills, and weight loss, Eyes: Negative for injury, la1 pain, redness, and discharge, ENT: Negative for injury, pain, and discharge, Neck: Negative for injury, pain, and swelling, Cardiovascular: Negative for chest pain, palpitations, and edema, Respiratory: Negative for shortness of breath, cough, wheezing, and pleuritic chest pain, Abdomen/GI: Negative for abdominal pain, nausea, vomiting, diarrhea, and constipation, Back: Negative for injury and pain, : Negative for injury, bleeding, discharge, and swelling, MS/Extremity: Negative for injury and deformity, Neuro: Negative for headache, weakness, numbness, tingling, and seizure. Exam: 11:32 Radiologist reports: no acute findings, chronic changes la1 11:32 Constitutional: This is a well developed, well nourished patient who is awake, alert, and in no acute distress. Head/Face: Normocephalic, atraumatic. Eyes: Pupils equal round and reactive to light, extra-ocular motions intact. Periorbital areas with no swelling, redness, or edema. ENT: Nares patent. No nasal discharge, no septal abnormalities noted. Tympanic membranes are normal and external auditory canals are clear. Oropharynx with no redness, swelling, or masses, exudates, or evidence of obstruction, uvula midline. Mucous membranes moist. Neck: Trachea midline, no thyromegaly or masses palpated, and no cervical lymphadenopathy. Supple, full range of motion without nuchal rigidity, or vertebral point tenderness. No Meningismus. Chest/axilla: Normal chest wall appearance and motion. Nontender with no deformity. No lesions are appreciated. Cardiovascular: Regular rate and rhythm with a normal S1 and S2. No gallops, murmurs, or rubs. Normal PMI, no JVD. No pulse deficits. 11:32 Respiratory: Lungs have equal breath sounds bilaterally, clear to auscultation No rales, rhonchi or wheezes noted. No increased work of breathing, no retractions or nasal flaring. Abdomen/GI: Soft, non-tender, with normal bowel sounds. No distension or tympany. No guarding or rebound. No evidence of tenderness throughout. Back: No spinal tenderness. No costovertebral tenderness. Full range of motion. Neuro: Awake and alert, GCS 15, oriented to person, place, time, and situation. Cranial nerves II-XII grossly intact. . Sensory grossly intact. Cerebellar exam normal. 15:21 ECG was reviewed by the Attending Physician. la1 Vital Signs: 10:35 BP 169 / 94; Pulse 60; Resp 16; Temp 98.2; Pulse Ox 100% on R/A; Weight 70.76 kg; iw Height 5 ft. 6 in. (167.64 cm); Pain 0/10; 11:00 BP 134 / 108; Pulse 67; Resp 18; Pulse Ox 100% on R/A; vc 11:30 BP 164 / 77; Pulse 58; Resp 16; Pulse Ox 100% ; Pain 0/10; vc 13:39 BP 180 / 88; Pulse 60; Pulse Ox 100% on R/A; Pain 0/10; vc 10:35 Body Mass Index 25.18 (70.76 kg, 167.64 cm) iw NIH Stroke Scale Scores: 10:35 NIHSS Score: 2 iw 11:34 NIHSS Score: 0 la1 MDM: 10:28 Patient medically screened. la1 13:16 Physician consultation: Jimmy Stephenson MD was called at 13:17, was contacted at 13:17, la regarding consult, outpatient follow-up, Dr. Stephenson states patient should be placed back on her plavix and take 1mg of folic acid daily and FU in his clinic. Does not need to stay in hospital at this time. ED course: CT and MRI show no acute findings, symptoms have completely resolved and pt is at baseline. Neurologist states pt should be OK to go home with plavix and folic acid daily. . 13:26 Data reviewed: vital signs, nurses notes, lab test result(s), radiologic studies, CT la1 scan, MRI, plain films, I have discussed the patient's presentation/case with the attending Emergency Department Physician; and as a result, I will discharge patient. Counseling: I had a detailed discussion with the patient and/or guardian regarding: the historical points, exam findings, and any diagnostic results supporting the discharge/admit diagnosis, the presence of at least one elevated blood pressure reading (>120/80) during this emergency department visit, lab results, radiology results, the need for outpatient follow up, a family practitioner, a neurologist, to return to the emergency department if symptoms worsen or persist or if there are any questions or concerns that arise at home. 02/28 10:31 Order name: Basic Metabolic Panel; Complete Time: 11:04 la1 02/28 10:31 Order name: CBC with Diff; Complete Time: 10:55 la1 02/28 10:31 Order name: Protime (+inr); Complete Time: 11:13 la1 02/28 10:31 Order name: Ptt, Activated; Complete Time: 11:13 la1 02/28 10:48 Order name: Glucose, Ancillary Testing; Complete Time: 10:55 EDMS 12/06 12:33 Order name: Urine Dipstick--Ancillary (enter results); Complete Time: 13:06 eb 02/28 10:31 Order name: CT Stroke Brain w/o Contrast; Complete Time: 11:13 la1 02/28 10:31 Order name: Stroke CXR 1 View; Complete Time: 11:04 la1 02/28 10:31 Order name: EKG; Complete Time: 10:32 la1 02/28 10:31 Order name: Accucheck; Complete Time: 10:39 la1 02/28 10:31 Order name: Cardiac monitoring; Complete Time: 10:39 la1 02/28 11:17 Order name: MRI - Brain Wo Cont; Complete Time: 13:06 la1 02/28 10:31 Order name: EKG - Nurse/Tech; Complete Time: 11:15 la1 02/28 10:31 Order name: IV Saline Lock; Complete Time: 10:39 la1 02/28 10:31 Order name: Labs collected and sent; Complete Time: 10:39 la1 02/28 10:31 Order name: NPO; Complete Time: 10:39 la1 02/28 10:31 Order name: O2 Per Protocol; Complete Time: 10:39 la1 02/28 10:31 Order name: O2 Sat Monitoring; Complete Time: 10:39 la1 02/28 10:31 Order name: Stroke Swallow Screen; Complete Time: 11:15 la1 EC:21 Rate is 53 beats/min. Rhythm is regular. Left axis deviation noted. NH interval is la1 normal. QT interval is normal. No Q waves. T waves are Inverted in lead aVL. No ST changes noted. Administered Medications: 11:23 Not Given (Physician Discretion): Aspirin Chewable Tablet 324 mg PO once; 81 mg tablets la1 x 4 11:40 Drug: Ativan 0.5 mg Route: IVP; Site: right antecubital; aa5 11:45 Follow up: Response: No adverse reaction aa5 Point of Care Testing: Blood Glucose: 10:35 Blood Glucose: 205 mg/dL; iw Ranges: Critical Glucose Levels:Adult <50 mg/dl or >400 mg/dl <40 mg/dl or >180 mg/dl Disposition: 16:46 Co-signature as Attending Physician, Rafa Lockhart MD I agree with the assessment and kdr plan of care. Disposition: 02/28/19 13:24 Discharged to Home. Impression: Transient cerebral ischemic attacks and related syndromes. - Condition is Stable. - Discharge Instructions: Transient Ischemic Attack. - Prescriptions for Plavix 75 mg Oral Tablet - take 1 tablet by ORAL route once daily; 20 tablet. Folic Acid 1 mg Oral Tablet - take 1 tablet by ORAL route once daily; 30 tablet. - Medication Reconciliation Form, Thank You Letter form. - Follow up: Private Physician; When: 2 - 3 days; Reason: Recheck today's complaints, Re-evaluation by your physician. - Problem is new. - Symptoms have improved. - Notes: Watch for signs and symptoms of bleeding or new or worsening neurological symptoms, return to ED immediately is any of these present. Follow up with Dr. Stephenson the neurologist whos information is in your discharge paperwork NIH Stroke Scale - NIH Stroke Score Date: 02/28/2019 Time: 10:35 Total Score = 2 1a. Level of Consciousness (LOC) - 0(Alert) 1b. Level of Consciousness (LOC) (Year \T\ Age) - 0(Both) 1c. LOC Commands (Open \T\ Closes Eyes/Sheather) - 0(Both) 2. Best Gaze (Lateral Gaze Paresis) - 0(Normal) 3. Visual Field Loss - 0(No visual loss) 4. Facial Palsy - 0(Normal) 5a. Left Arm: Motor (10-second hold) - 0(No drift) 5b. Right Arm: Motor (10-second hold) - 0(No drift) 6a. Left Leg: Motor (5-second hold - always test supine) - 1(Drift) 6b. Right Leg: Motor (5-second hold - always test supine) - 0(No drift) 7. Limb Ataxia (finger/nose \T\ heel/tejeda - test with eyes open) - 0(Absent) 8. Sensory Loss (pinprick arms/legs/face) - 1(Mild to moderate loss) 9. Best Language: Aphasia (description/naming/reading) - 0(No aphasia) 10. Dysarthria (speech clarity - read or repeat words) - 0(Normal) 11. Extinction and Inattention (visual/tactile/auditory/spatial/personal) - 0(No abnormality) Initials: NIH Stroke Scale - NIH Stroke Score Date: 02/28/2019 Time: 11:34 Total Score = 0 1a. Level of Consciousness (LOC) - 0(Alert) 1b. Level of Consciousness (LOC) (Year \T\ Age) - 0(Both) 1c. LOC Commands (Open \T\ Closes Eyes/Sheather) - 0(Both) 2. Best Gaze (Lateral Gaze Paresis) - 0(Normal) 3. Visual Field Loss - 0(No visual loss) 4. Facial Palsy - 0(Normal) 5a. Left Arm: Motor (10-second hold) - 0(No drift) 5b. Right Arm: Motor (10-second hold) - 0(No drift) 6a. Left Leg: Motor (5-second hold - always test supine) - 0(No drift) 6b. Right Leg: Motor (5-second hold - always test supine) - 0(No drift) 7. Limb Ataxia (finger/nose \T\ heel/tejeda - test with eyes open) - 0(Absent) 8. Sensory Loss (pinprick arms/legs/face) - 0(Normal) 9. Best Language: Aphasia (description/naming/reading) - 0(No aphasia) 10. Dysarthria (speech clarity - read or repeat words) - 0(Normal) 11. Extinction and Inattention (visual/tactile/auditory/spatial/personal) - 0(No abnormality) Initials: la1 Signatures: Dispatcher [employer] EDMS Rafa Lockhart MD MD kdr Anita Lezama RN RN iw Calderon, Audri, RN RN aa5 Vitaliy Kinney, DELIMER-C DELIMER-Cla1 Yumiko Bajwa RN RN vc Corrections: (The following items were deleted from the chart) 13:44 13:24 02/28/2019 13:24 Discharged to Home. Impression: Transient cerebral vc ischemic attacks and related syndromes. Condition is Stable. Forms are Medication Reconciliation Form, Thank You Letter, Antibiotic Education, Prescription Opioid Use. Follow up: Private Physician; When: 2 - 3 days; Reason: Recheck today's complaints, Re-evaluation by your physician. Problem is new. Symptoms have improved. la1
--- NOTE | 2019-02-28 15:33 | EKG ---
Test Date: 2019-02-28 Test Time: 10:59:07 Histopathologist: LUZ MEASUREMENT RESULTS: Intervals: Rate: 53 SC: 192 QRSD: 116 QT: 442 QTc: 414 Dickinson: P: 62 SC: 192 QRS: -58 T: 118 INTERPRETIVE STATEMENTS: Sinus bradycardia Left axis deviation Septal infarct, age undetermined ST & T wave abnormality, non specific Abnormal ECG Compared to ECG 07/18/2014 18:36:45 Left-axis deviation now present Sinus rhythm no longer present Ventricular premature complex(es) no longer present Myocardial infarct finding still present ST (T wave) deviation still present Electronically Signed On 02-28-19 15:32:51 MEDICAL INFORMATION OFFICER by Slade Larsen
[2019-02-28 16:48] VITALS: BP 169/94; TEMP 98.2; O2SAT 100
== END 2019-02-28 13:44 | disposition home or self-care (01) ==
LOC: ER 10:16
DX: G45.8 Other transient cerebral ischemic attacks and related syndromes (principal); I10 Essential (primary) hypertension; Z88.0 Allergy status to penicillin
CPT/HCPCS: 36415; 70450; 70551; 71045; 80048; 81003; 82947; 85025; 85610; 85730; 93005; 96374; 99285

== ENCOUNTER 2019-11-19 12:26 | Emergency (ER) | payer OTHER ==
--- OUTSIDE RECORDS SUMMARY | 2019-11-19 12:29 | XMS REPORT | Continuity of Care Document ---
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 Keith ro (disorder) Medications Medication Details Route Status Patient Ordering Order Source Instructions Provider Date Plavix PO, 0 Active 04/22/19 [facility] Refill(s) 20 Neuro Crestor PO, Daily, Active 04/22/19 [facility] 0 20 Neuro Refill(s) glimepiride PO, Daily, Active 04/22/19 [facility] 0 20 Neuro Refill(s) metoprolol BID, 0 Active 04/22/19 [facility] tartrate Refill(s) 20 Neuro Allergies, Adverse Reactions, Alerts Substance Category Reaction Severity Reaction Status Date Comments S ource type Reported penicillin Assertion MO^Moderat Drug Active [facility] e allergy Neuro Immunizations No Data Provided for This Section Results No Data Provided for This Section Pathology Reports No Data Provided for This Section Diagnostic Reports No Data Provided for This Section Consultation Notes No Data Provided for This Section Discharge Summaries No Data Provided for This Section History and Physicals No Data Provided for This Section Vital Signs Vital Sign Value Date Comments Source Systolic (mm Hg) 158 04/22/2019 [facility] Diastolic (mm Hg) 77 04/22/2019 [facility] Heart Rate 54 04/22/2019 [facility] Respitory Rate 16 04/22/2019 [facility] Height 157.48 cm 04/22/2019 [facility] Weight 73.636 04/22/2019 [facility] BMI Calculated 29.69 04/22/2019 [facility] Encounters Location Location Encounter Encounter Reason Attending ADM [place] Stat Source Details Type Number For Provider Date Date Visit Outpatient [id number] Robin 04/22 Active [facility] [place] [facility] [id number] Robin 04/22 04/23 [facility] [id number] Robin 06/23 Active [facility] Ambulatory [id number] Robin 06/23 06/23 [facility] Procedures Procedure Code Date Perfomer Comments Source Appendectomy [id number] [facility] Heart valve [id number] [facility] [place] Hyste[facility] [id number] [facility] Assessment and Plan No Data Provided for This Section Plan of Care No Data Provided for This Section Social History Social History Date Source Social History TypeResponse 04/22/2019 [facility] Employment/School 1, 2 Smoking Status Unknown if ever smoked; Exposure to [employer] Smoke Unable to obtain; Cigarette Smoking Last 365 Days Unable to obtain; Reg Smoking Cessation Counseling No entered on: 04/22/19 1P.O.A Son- J Guy sanders medical information t oo Guy-Son Family History No Data Provided for This Section Advance Directives No Data Provided for This Section Functional Status No Data Provided for This Section
--- OUTSIDE RECORDS SUMMARY | 2019-11-19 12:30 | XMS REPORT | Continuity of Care Document ---
:1940 Author Organization [facility] t Address [address] [place] [address] Care Team Providers Name Role Phone Da Velez Attending Clinician Problems Condition Condition Condition Status Onset Resolution Last Treating Co mments Source Name Details Category Date Date Treatment Clinician Date Carotid Problem Active 2019-06-26 Spencer krishna territory 21:58:29 l transient Carotid [place] ischemic territory attack transient (disorder) ischemic attack (disorder) Active Problem 06/26/2019 [facility] Diabetes Problem Active 2019-06-26 Mem oria mellitus 21:58:29 l (disorder) Diabetes He rmann mellitus (disorder) Active Problem 06/26/2019 [facility] Hyperlipid Problem Active 2019-06-26 M emoria emia 21:58:29 l (disorder) Chi n Hyperlipid emia (disorder) Active Problem 06/26/2019 [facility] Hypertensi Problem Active 2019-06-26 M emoria ve 21:58:29 l disorder, [place] systemic Hypertensi arterial ve (disorder) disorder, systemic arterial (disorder) Active Problem 06/26/2019 [facility] Right Problem Active 2019-06-26 Memor ia carotid 21:58:29 l artery Right [place] occlusion carotid (disorder) artery occlusion (disorder) Active Problem 06/26/2019 [facility] Allergies, Adverse Reactions, Alerts Allergy Allergy Status Severity Reaction(s) Onset Inactive Treating Comm ents Source Name Type Date Date Clinician penicill penicill Active MO^Modera Mem oria in in te l [place] Social History Social Habit Start Date Stop Date Quantity Comments Source Social History 2019-04-22 2019-04-22 Becki swain 22:00:38 22:00:38 Medications Ordered Filled Start Stop Current Ordering Indication Dosage Frequency Signature Comments Components Source Medication Medication Date Date Medication? Clinician (SIG) Name Name Plavix Yes PO, 0 Memoria 1 Refill(s) l 21:43: [facility]ammad 00 Crestor 2019- Yes PO, Daily, Spencer krishna - 0 l 21:43: Refill(s) [place] 00 glimepiride Yes PO, Daily, Memoria 1-28 0 l 21:43: Refill(s) [place] 00 metoprolol Yes BID, 0 Memor ia tartrate 04-22 Refill(s) l 21:43: [facility] 00 Vital Signs Vital Name Observation Time Observation Value Comments Source Systolic (mm Hg) 2019-04-22 21:42:00 Spencer rial [facility] Diastolic (mm Hg) 2019-04-22 21:42:00 Conor Cueva Heart Rate 2019-04-22 21:42:00 [facility] Respitory Rate 2019-04-22 21:42:00 Lars mcpherson [place] Height 2019-04-22 21:42:00 157.48 cm [facility] Weight 2019-04-22 21:42:00 [facility] BMI Calculated 2019-04-22 21:42:00 Lars mcpherson [facility] Procedures Procedure Date / Time Performed Performing Clinician Yesika e Appendectomy [facility] Heart valve replacement [facility] Hysterectomy [facility] Encounters Start End Encounter Admission Attending Care Care Encounter Source Date/Time Date/Time Type Type Clinicians Facility Department ID 2019-06-24 2019-06-24 Outpatient ANDREE Velez [id number] 15:45:00 15:45:00 Robin Roberson 2019-04-22 2019-04-22 Outpatient ANDREE Velez [id number] 14:45:00 23:59:59 Robin 00 Da Results This patient has no known results.
[2019-11-19] MEDS ORDERED: TETANUS & DIPHTHERIA TOX,ADULT 0.5 ML VIAL ONE (13:03)
[2019-11-19] MEDS ORDERED: DERMABOND SKIN ADHESIVE TOP ONE (13:03)
[2019-11-19] MEDS ORDERED: LIDOCAINE 1% MPF 5 ML VIAL ONE (14:07)
--- NOTE | 2019-11-19 15:10 | ER ---
Nurse's Notes [facility] Name: Charlene Stokes Age: 79 yrs Sex: Female : 1940 Arrival Date: 11/19/2019 Time: 12:28 Bed 16 Private MD: Diagnosis: Bitten by cat;Laceration without foreign body of right hand Presentation: 11/18 12:38 Chief complaint: Patient states: "my kitten scratched me". Scratches noted to right aa5 hand, left FA, and under left eye. 12:38 Coronavirus screen: Client denies travel out of the [place] in the last 14 days. At this aa5 time, the client does not indicate any symptoms associated with coronavirus-19. Ebola Screen: Patient negative for fever greater than or equal to 101.5 degrees Fahrenheit, and additional compatible Ebola Virus Disease symptoms. Initial Sepsis Screen: Does the patient meet any 2 criteria? No. Patient's initial sepsis screen is negative. Does the patient have a suspected source of infection? No. Patient's initial sepsis screen is negative. Risk Assessment: Do you want to hurt yourself or someone else? Patient reports no desire to harm self or others. Onset of symptoms was October 2019. 12:38 Method Of Arrival: Ambulatory aa5 12:38 Acuity: KELLE 4 aa5 Historical: - Allergies: 13:08 PENICILLINS; ca1 12:38 PENICILLINS; aa5 - PMHx: 13:08 CAD; Diabetes - NIDDM; Hypertension; ca1 12:38 CAD; Diabetes - NIDDM; Hypertension; aa5 - PSHx: 13:08 heart valve replacement; Hysterectomy; Appendectomy; Cholecystectomy; ca1 12:38 heart valve replacement; Hysterectomy; Appendectomy; Cholecystectomy; aa5 - Immunization history:: Adult Immunizations up to date, Last tetanus immunization: unknown. - Social history:: Smoking status: Patient denies any tobacco usage or history of. - Family history:: not pertinent. - Hospitalizations: : No recent hospitalization is reported. Screenin:08 Abuse screen: Denies threats or abuse. Denies injuries from another. Nutritional ca1 screening: No deficits noted. Tuberculosis screening: No symptoms or risk factors identified. Fall Risk Fall in past 12 months (25 points). Ambulatory Aid- Crutches/Cane/Walker (15 pts). Assessment: 13:05 General: Appears in no apparent distress. comfortable, Behavior is calm, cooperative, ca1 appropriate for age. Pain: Complains of pain in right hand. Neuro: Level of Consciousness is awake, alert, obeys commands, Oriented to person, place, time, situation. Derm: Skin is intact, is healthy with good turgor, Skin is pink, warm \\T\\ dry. Musculoskeletal: Circulation, motion, and sensation intact. Capillary refill < 3 seconds. Injury Description: Laceration sustained to dorsal aspect of middle phalanx of right index finger, palmar aspect of proximal phalanx of right thumb and outer aspect of right palm is jagged, superficial, 0.5 to 2.5 cm long, not bleeding, a small amount of bleeding noted at this time. 14:02 Reassessment: Patient appears in no apparent distress at this time. Patient and/or ca1 family updated on plan of care and expected duration. Pain level reassessed. Patient is alert, oriented x 3, equal unlabored respirations, skin warm/dry/pink. 15:05 Reassessment: Patient appears in no apparent distress at this time. Patient is alert, ca1 oriented x 3, equal unlabored respirations, skin warm/dry/pink. 15:41 Reassessment: Patient appears in no apparent distress at this time. Patient is alert, ca1 oriented x 3, equal unlabored respirations, skin warm/dry/pink. Vital Signs: 12:38 BP 147 / 90; Pulse 81; Resp 16 S; Temp 98.3(O); Pulse Ox 98% on R/A; aa5 14:02 BP 157 / 83; Pulse 71; Resp 15 S; Pulse Ox 100% on R/A; ca1 15:05 BP 163 / 92; Pulse 69; Resp 15 S; Pulse Ox 99% on R/A; ca1 ED Course: 12:28 Patient arrived in ED. ag5 12:38 Ag Gonzalez MD is Attending Physician. rn 12:38 Arm band placed on. aa5 12:43 Ольга Gayle, RN is Primary Nurse. ca1 13:07 Triage completed. aa5 13:08 Patient has correct armband on for positive identification. Bed in low position. Call ca1 light in reach. Side rails up X 1. Pulse ox on. NIBP on. Warm blanket given. 13:08 Patient did not have IV access during this emergency room visit. ca1 13:50 Wound care: soaked wounds to right hand with Betadine and normal saline ,cleaned wounds dh3 to right hand, left forearm and left under eye with chlorhexidine and normal saline. Patient tolerated well. 15:00 Blanquita Whitfield FNP-C is [facility]. snw 15:00 Assist provider with laceration repair on outer aspect of right palm and palmar aspect ca1 of proximal phalanx of right thumb and dorsal aspect of middle phalanx of right index finger that was 2.5 cm. or less using sutures. Set up tray. Performed by Blanquita YANES Dressed with 4X4s, Neosporin, Patient tolerated well. 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 Exp: ca1 05/09/2021. Lot #: [id number]. } Route: IM; Site: right deltoid; 15:13 Follow up: Response: No adverse reaction ca1 Outcome: 15:10 Discharge ordered by . snw 15:42 Discharged to home ambulatory. ca1 15:42 Condition: stable 15:42 Discharge instructions given to patient, Instructed on discharge instructions, follow up and referral plans. no drinking with medication, no driving heavy equipment, medication usage, Demonstrated understanding of instructions, follow-up care, medications, Prescriptions given X 2. 15:43 Patient left the ED. ca1 Signatures: Blanquita Whitfield FNP-C FRONT DESK SPECIALIST-Csnw Ag Gonzalez MD MD rn Calderon, Audri, RN RN 5 Melia Maldonado 3 Ольга Gayle RN RN ca1 Shannon Gold ag5 Corrections: (The following items were deleted from the chart) 13:08 13:08 Fall Risk Fall in past 12 months (25 points). ca1 ca1 15:13 13:08 No provider procedures requiring assistance completed. ca1 ca1 15:13 13:08 Assist provider with laceration repair on outer aspect of right palm and palmar ca1 aspect of proximal phalanx of right thumb and dorsal aspect of middle phalanx of right index finger that was 2.5 cm. or less using sutures. Set up tray. Performed by Blanquita YANES Dressed with 4X4s, Neosporin, Patient tolerated well. ca1
--- NOTE | 2019-11-19 15:10 | EDPHYS ---
Physician Documentation [facility] Name: Charlene Stokes Age: 79 yrs Sex: Female : 1940 Arrival Date: 11/19/2019 Time: 12:28 Bed 16 Private MD: ED Physician Ag Gonzalez HPI: 11/18 14:03 This 79 yrs old Female presents to ER via Ambulatory with complaints of Hand rn Injury, Cat Bite. 14:03 The patient or guardian reports injury, pain. The complaints affect the right hand rn diffusely. 14:03 Onset: The symptoms/episode began/occurred today. Modifying factors: The symptoms are rn alleviated by nothing, the symptoms are aggravated by nothing. Severity of symptoms: At their worst the symptoms were mild, in the emergency department the symptoms are unchanged. The patient has not experienced similar symptoms in the past. The patient has not recently seen a physician. Report cat scratched her, + lacerations to right hand, 1st and second digits. Unknown tetanus status. . Historical: - Allergies: 13:08 PENICILLINS; ca1 12:38 PENICILLINS; aa5 - PMHx: 13:08 CAD; Diabetes - NIDDM; Hypertension; ca1 12:38 CAD; Diabetes - NIDDM; Hypertension; aa5 - PSHx: 13:08 heart valve replacement; Hysterectomy; Appendectomy; Cholecystectomy; ca1 12:38 heart valve replacement; Hysterectomy; Appendectomy; Cholecystectomy; aa5 - Immunization history:: Adult Immunizations up to date, Last tetanus immunization: unknown. - Social history:: Smoking status: Patient denies any tobacco usage or history of. - Family history:: not pertinent. - Hospitalizations: : No recent hospitalization is reported. ROS: 14:03 Constitutional: Negative for fever, chills, and weight loss, Eyes: + scratch under left rn eye Neck: Negative for injury, pain, and swelling, Cardiovascular: Negative for chest pain, palpitations, and edema, Respiratory: Negative for shortness of breath, cough, wheezing, and pleuritic chest pain, MS/Extremity: + lacerations right hand Skin: + laceration to right hand, scratch to left hand, scratch to left periocular region. Neuro: Negative for headache, weakness, numbness, tingling, and seizure. Exam: 14:03 Constitutional: This is a well developed, well nourished patient who is awake, alert, rn and in no acute distress. Head/Face: Normocephalic, + small superficial scratch, subcentimeter under left eye. Eyes: Pupils equal round and reactive to light, extra-ocular motions intact. Lids and lashes normal. Conjunctiva and sclera are non-icteric and not injected. Cornea within normal limits. MS/ Extremity: Pulses equal, no cyanosis. Neurovascular intact. Full, normal range of motion. + 3 cm superficial laceration dorsal base of right thumb, 1.5 cm superficial irregular laceration base of right 2nd digit. No arterial bleeding. Vital Signs: 12:38 BP 147 / 90; Pulse 81; Resp 16 S; Temp 98.3(O); Pulse Ox 98% on R/A; aa5 14:02 BP 157 / 83; Pulse 71; Resp 15 S; Pulse Ox 100% on R/A; ca1 15:05 BP 163 / 92; Pulse 69; Resp 15 S; Pulse Ox 99% on R/A; ca1 Laceration: 15:00 Wound Repair of 4cm ( 1.6in ) subcutaneous laceration to lateral aspect of right hand snw and dorsal aspect of middle phalanx of right index finger. Distal neuro/vascular/tendon intact. 15:00 Wound Repair of 4.2cm ( 1.7in ) subcutaneous laceration to lateral aspect of right hand snw and dorsal aspect of proximal phalanx of right index finger. Linear shaped.. Irregularly shaped.. Distal neuro/vascular/tendon intact. Anesthesia: Local anesthetic administered with 5 mls of 1% lidocaine. Wound prep: Extensive cleansing with betadine by wind energy technician. Skin closed with 11 4-0 Prolene using interrupted sutures and sterile technique. Dressed with Kerlix, non-adherent dressing. Patient tolerated well. MDM: 12:38 Patient medically screened. rn 15:15 Data reviewed: vital signs, nurses notes. Data interpreted: Pulse oximetry: on room air snw is 99 %. Interpretation: normal. Counseling: I had a detailed discussion with the patient and/or guardian regarding: the historical points, exam findings, and any diagnostic results supporting the discharge/admit diagnosis, the presence of at least one elevated blood pressure reading (>120/80) during this emergency department visit, the need for outpatient follow up, to return to the emergency department if symptoms worsen or persist or if there are any questions or concerns that arise at home. Special discussion: I have referred the patient to see his PCP for further evaluation of high blood pressure. I discussed in detail with the patient the higher chance of wound infection based on his presenting history. Based on the history and exam findings, there is no indication for further emergent testing or inpatient evaluation. I discussed with the patient/guardian the need to see the primary care provider for further evaluation of the symptoms. 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 Exp: ca1 05/09/2021. Lot #: [id number]. } Route: IM; Site: right deltoid; 15:13 Follow up: Response: No adverse reaction ca1 Disposition: 16:49 Co-signature as Attending Physician, Ag Gonzalez MD. rn Disposition: 11/19/19 15:10 Discharged to Home. Impression: Bitten by cat, Laceration without foreign body of right hand. - Condition is Stable. - Discharge Instructions: Hypertension, Laceration Care, Adult, Stitches, [place], or Adhesive Wound Closure, Wound Infection, VIS, Tetanus, Diphtheria (Td) - CDC, Wound Care, Animal Bite. - Prescriptions for Tylenol- Codeine #3 300-30 mg Oral Tablet - take 2 tablets by ORAL route every 6 hours As needed; 15 tablet. Doxycycline Hyclate 100 mg Oral Tablet - take 1 tablet by ORAL route every 12 hours; 20 tablet. - Medication Reconciliation Form, Thank You Letter, Antibiotic Education, Prescription Opioid Use form. - Follow up: Private Physician; When: 7 - 10 days; Reason: Recheck today's complaints, Continuance of care, Staple/Suture removal, Re-evaluation by your physician. Follow up: Emergency Department; When: As needed; Reason: Recheck today's complaints, Staple/Suture removal. Signatures: Blanquita Whitfield, GOLF BALL MARKER-C GOLF BALL MARKER-Csnw Ag Gonzalez MD MD rn Calderon, Audri, RN RN aa5 Acob, Ольга, RN RN ca1 Corrections: (The following items were deleted from the chart) 15:43 15:10 11/19/2019 15:10 Discharged to Home. Impression: Bitten by cat; Laceration ca1 without foreign body of right hand. Condition is Stable. Forms are Medication Reconciliation Form, Thank You Letter, Antibiotic Education, Prescription Opioid Use. Follow up: Private Physician; When: 7 - 10 days; Reason: Recheck today's complaints, Continuance of care, Staple/Suture removal, Re-evaluation by your physician. Follow up: Emergency Department; When: As needed; Reason: Recheck today's complaints, Staple/Suture removal. snw
[2019-11-24 11:20] VITALS: TEMP 98.3
[2019-11-24 11:22] VITALS: BP 163/92; O2SAT 99
== END 2019-11-19 15:43 | disposition home or self-care (01) ==
LOC: ER 12:26
PROC: 0JQJ0ZZ Repair Right Hand Subcutaneous Tissue and Fascia, Open Approach (ICD-10-PCS; principal; 2019-11-19)
DX: S61.411A Laceration without foreign body of right hand, initial encounter (principal); W55.01XA Bitten by cat, initial encounter; Y93.9 Activity, unspecified; Y92.9 Unspecified place or not applicable; Z23 Encounter for immunization; I10 Essential (primary) hypertension; Z88.0 Allergy status to penicillin; Z95.4 Presence of other heart-valve replacement
CPT/HCPCS: 90471; 90714; 99284

== ENCOUNTER 2020-02-04 15:16 | Inpatient (IN) | payer OTHER ==
--- OUTSIDE RECORDS SUMMARY | 2020-02-04 15:18 | XMS REPORT | Continuity of Care Document ---
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 Problem 12/15/2019 Misch er artery occlusion Keith ro (disorder) [...] Value Date Comments Source Systolic (mm Hg) 161 12/12/2019 [facility] Diastolic (mm Hg) 69 12/12/2019 [facility] Heart Rate 69 12/12/2019 [facility] Respitory Rate 16 12/12/2019 [facility] Height 152.4 cm 12/12/2019 [facility] Weight 72.273 12/12/2019 [facility] BMI Calculated 31.12 12/12/2019 [facility] Systolic (mm Hg) 158 04/22/2019 [facility] Keith ro Diastolic (mm Hg) 77 04/22/2019 [facility] Ne uro Heart Rate 54 04/22/2019 [facility] Neuro Respitory Rate 16 04/22/2019 [facility] Neuro Height 157.48 cm 04/22/2019 [facility] Neuro Weight 73.636 04/22/2019 [facility] Neuro BMI Calculated 29.69 04/22/2019 [facility] Neuro Encounters Location Location Encounter Encounter Reason Attending ADM DC Stat us Source Details Type Number For Provider Date Date Visit Outpatient [id number] Robin 04/22 Active [facility] Krell /2020 Hammad MNA Outpatient [id number] Robin 04/22 04/23 [facility] Neurology Krell /2019 [facility] [place] Outpatient [id number] Robin 06/23 Active [facility] Kre /2020 Hammad MNA Ambulatory [id number] Robin 06/23 06/23 [facility] Neurology Pre-Reg Krell /2019 [facility] [place] MNA Outside [id number] 12/09 12/11 [facility]rology Medical /2019 [facility] [place] Records Outpatient [id number] Robin 12/11 Active [facility] Krell /2019 Hammad MNA Outpatient [id number] Robin 12/11 12/12 [facility] Neurology Krell /2019 [facility] [place] Outpatient [id number] Robin 09/10 Active [facility] Kre Hammad Procedures Procedure Code Date Perfomer Comments Source Appendectomy [id number] [facility] Neur o Heart valve [id number] [facility] Neuro replacement Hysterectomy [id number] [facility] Neur o Assessment and Plan No Data Provided for This Section Plan of Care No Data Provided for This Section Social History Social History Date Source Social History [facility]/School 1, 2 Smoking Status Unknown if ever smoked; 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
--- OUTSIDE RECORDS SUMMARY | 2020-02-04 15:18 | XMS REPORT | Summary of Care ---
:1940 Author Organization [facility] Address [address] [place] [address]- Encounter HQ Darcie(ALESSANDRO) [id number] Date(s): 12/12/19 - 12/12/19 [facility] [address], [place] [address]- [phone] Discharge Disposition: Home or Self Care Attending Physician: Robin Velez MD Referring Physician: Robin Velez MD Vital Signs Most recent to oldest [Reference Range]: 1 Height 152.4 cm (12/12/19 11:54 AM) Blood Pressure [90-140/60-90 mmHg] 161/69 mmHg *HI* (12/12/19 11:54 AM) Respiratory Rate [14-20 BRMIN] 16 BRMIN (12/12/19 11:54 AM) Peripheral Pulse Rate [60-100 bpm] 69 bpm (12/12/19 11:54 AM) Weight 72.273 kg (12/12/19 11:54 AM) Body Mass Index 31.12 m2 (12/12/19 11:54 AM) Problem List Condition Effective Dates Status Health Status Informant TIA involving carotid Active artery(Confirmed) Diabetes(Confirmed) Active Hyperlipidemia(Confirmed) Active hyperlipidemia(Confirmed) Active Carotid occlusion, right(Confirmed) Active Allergies, Adverse Reactions, Alerts Substance Reaction Severity Status penicillin MO^Moderate Active Medications No Known Medications Results No data available for this section Immunizations No data available for this section Procedures Procedure Date Related Diagnosis Body Site Status Appendectomy Completed Heart valve replacement Comp leted Hysterectomy Completed Social History Social History Type Response Employment/School 1, 2 Smoking Status Unknown if ever smoked; Expo sure to Tobacco Smoke Unable to obtain; Cigarette Smoking Last 365 Days Unable to obtain; Reg Smoking Cessation Counseling No entered on: 12/12/19 1P.O.A Dilia dover medical information too Guy-Son Assessment and Plan No data available for this section
--- OUTSIDE RECORDS SUMMARY | 2020-02-04 15:19 | XMS REPORT | Summary of Care ---
:1940 Author Organization [facility] [place] Address [address] [place] [address]- Encounter HQ Rupalintr_izaiah(FIN) [id number] Date(s): 12/10/19 - 12/11/19 [facility] [address], [place] [id number]- [phone] Vital Signs No data available for this section Problem List Condition Effective Dates Status Health Status Informant TIA involving carotid Active artery(Confirmed) Diabetes(Confirmed) Active Hyperlipidemia(Confirmed) Active hyperlipidemia(Confirmed) Active Carotid occlusion, right(Confirmed) Active Allergies, Adverse Reactions, Alerts Substance Reaction Severity Status penicillin MO^Moderate Active Medications No data available for this section Results No data available for this section [...] on: 12/12/19 1P.O.A Dilia dover medical information rhona Coffman Assessment and Plan No data available for this section
--- OUTSIDE RECORDS SUMMARY | 2020-02-04 15:19 | XMS REPORT | Continuity of Care Document ---
:1940 Author Organization [facility] t Address [address] [place] [address] Care Team Providers Name Role Phone Da Velez Attending Clinician Problems Condition Condition Condition Status Onset Resolution Last Treating Co mments Source Name Details Category Date Date Treatment Clinician Date Carotid Problem Active 2019-12-15 Spencer krishna territory 00:21:29 l transient Carotid [place] ischemic territory attack transient (disorder) ischemic attack (disorder) Active Problem 12/15/2019 [facility] Diabetes Problem Active 2019-12-15 Mem oria mellitus 00:21:29 l (disorder) Diabetes He r[place] mellitus (disorder) Active Problem 12/15/2019 [facility] Hyperlipid Problem Active 2019-12-15 M emoria emia 00:21:29 l (disorder) Chi n Hyperlipid emia (disorder) Active Problem 12/15/2019 [facility] Hypertensi Problem Active 2019-12-15 M emoria ve 00:21:29 l disorder, [place] systemic Hypertensi arterial ve (disorder) disorder, systemic arterial (disorder) Active Problem 12/15/2019 [facility] Right Problem Active 2019-12-15 Memor ia carotid 00:21:29 l artery Right [place] occlusion carotid (disorder) artery occlusion (disorder) Active Problem 12/15/2019 [facility] Allergies, Adverse Reactions, Alerts Allergy Allergy Status Severity Reaction(s) Onset Inactive Treating Comm ents Source Name Type Date Date Clinician penicill penicill Active MO^Modera Mem oria in in te l [place] Social History Social Habit Start Date Stop Date Quantity Comments Source Social History 2019-04-22 2019-04-22 Becki swain 22:00:38 22:00:38 Medications Ordered Filled Start Stop Current Ordering Indication Dosage Frequency Signature Comments Components Source Medication Medication Date Date Medication? Clinician (SIG) Name Name Plavix Yes PO, 0 Memoria 1-28 Refill(s) l 21:43: Hammad 00 Crestor 2019-0 Yes PO, Daily, Spencer krishna 1-28 0 l 21:43: Refill(s) [place] 00 glimepiride 2019-0 Yes PO, Daily, Memoria 1-28 0 l 21:43: Refill(s) Hammad 00 metoprolol 2019- Yes BID, 0 Memor ia tartrate 128 Refill(s) l 21:43: Hammad 00 Vital Signs Vital Name Observation Time Observation Value Comments Source Systolic (mm Hg) 2019-12-12 16:54:00 Spencer rial Hammad Diastolic (mm Hg) 2019-12-12 16:54:00 Mem orial [place] Heart Rate 2019-12-12 16:54:00 [facility] Respitory Rate 2019-12-12 16:54:00 Memori al [place] Height 2019-12-12 16:54:00 152.4 cm [facility] Weight 2019-12-12 16:54:00 [facility] [place] BMI Calculated 2019-12-12 16:54:00 Memori al [place]ammad Systolic (mm Hg) 2019-04-22 21:42:00 Spencer rial Hammad Diastolic (mm Hg) 2019-04-22 21:42:00 Mem orial Hammad Heart Rate 2019-04-22 21:42:00 [facility] [place] Respitory Rate 2019-04-22 21:42:00 Memori al [place] Height 2019-04-22 21:42:00 157.48 cm [facility] Weight 2019-04-22 21:42:00 [facility] [place] BMI Calculated 2019-04-22 21:42:00 Memori al [place] Procedures Procedure Date / Time Performed Performing Clinician [facility] e Appendectomy [facility] [place] [facility] Encounters Start End Encounter Admission Attending Care Care Encounter Source Date/Time Date/Time Type Type Clinicians Facility Department ID 2019-12-12 2019-12-12 Outpatient ANDREE Velez [id number] 11:45:00 23:59:59 Robin Roberson 2019-12-10 2019-12-11 Outpatient ANDREE CANDELARIO [id number] 09:57:19 23:59:59 00 2019-06-24 2019-06-24 Outpatient Krell, [facility] [id number] 15:45:00 15:45:00 Robin Da 2019-04-22 2019-04-22 Outpatient Agustin [facility] [id number] 14:45:00 23:59:59 Robin Da Results This patient has no known results.
[2020-02-04] MEDS ORDERED: NA CHLORIDE 0.9% 500 ML ONE (19:46)
[2020-02-04 20:09] LABS: Basophils % 0.7 % (0-1.3); Hematocrit 27.2 % (36.0-45.0); Lymphocytes % 33.8 % (15.3-44.8); MPV 7.8 fL (7.6-11.3); RBC Red Blood Cell Count 2.76 M/uL (3.86-4.86)
[2020-02-04 20:26] LABS: ALT/SGPT 22 U/L (12-78); AST/SGOT 22 U/L (15-37); Albumin 3.3 g/dL (3.4-5.0); Alkaline Phosphatase 111 U/L (45-117); BUN Blood Urea Nitrogen 25 mg/dL (7-18); Bicarbonate 25 mmol/L (21-32); Bilirubin Direct < 0.1 mg/dL (0-0.2); Bilirubin Total 0.3 mg/dL (0.2-1.0); Glucose Level 134 mg/dL (74-106); Lipase 50 U/L (73-393); Potassium 3.7 mmol/L (3.5-5.1); Protein, Total 7.2 g/dL (6.4-8.2); Sodium Level 140 mmol/L (136-145)
--- NOTE | 2020-02-04 20:41 | RAD REPORT ---
EXAM DESCRIPTION: CT - Abdomen Pelvis W Contrast - 02/04/2020 8:12 pm CLINICAL HISTORY: Abd pain;GI bleed COMPARISON: Abdomen Pelvis W Contrast dated 02/02/2019 TECHNIQUE: Biphasic, helical CT imaging of the abdomen and pelvis was performed following 100 ml non -ionic IV contrast. No oral contrast administered. All CT scans are performed using dose optimization technique as appropriate and may include automated exposure control or mA/KV adjustment according to patient size. FINDINGS: No suspicious findings in the lung bases. No acute liver finding. Numerous surgical clips are seen in the gallbladder fossa creating substantia l metal spray artifact. No lesions of the liver parenchyma seen. Volume loss changes are present in t he pancreatic parenchyma with no acute pancreatic process. No splenic abnormality. No biliary tree di latation. Symmetric renal function is seen with no hydronephrosis or suspicious renal mass. No pyelonephritis o r acute parenchymal process. Renal cysts are present. Dense vascular calcifications are present but n o obstructing or nonobstructing renal or ureteral calculi. Left adrenal 2.6 centimeter mass not clear ly different from the comparison. No right adrenal abnormality. Mostly contracted urinary bladder svitlana ws accentuation of the christianson. This is probably artifact of contraction. However, cystitis cannot be e xcluded. No gastric dilatation or wall thickening. No acute colon process is identified. Patient has moderatel y prominent diverticulosis without diverticulitis or other active process. No free air, free fluid o r inflammatory stranding. No hernia, mass or bulky lymphadenopathy. No suspicious bony findings. Prominent disc and bony degenerative changes are present. Patient has de nse arterial tree calcifications. IMPRESSION: No rectal or colon mass or active colon process identifiable. Patient has moderately pro minent diverticulosis without diverticulitis findings. No acute or active process identifiable. Above detailed findings are not clearly different from 2018.
--- NOTE | 2020-02-04 20:54 | EDPHYS ---
Physician Documentation [facility] Name: Charlene Stokes Age: 79 yrs Sex: Female : 1940 Arrival Date: 02/04/2020 Time: 15:18 Bed 8 Private MD: ED Physician Ag Gonzalez HPI: 02/03 20:07 This 79 yrs old Female presents to ER via Ambulatory with complaints of rn Rectal Bleeding. 20:07 The patient presents to the emergency department with bleeding from the rectum/anus. rn 20:07 Onset: The symptoms/episode began/occurred 3 day(s) ago. Context: the patient has no rn known special context relating to the rectal area complaint(s). Modifying factors: The symptoms are alleviated by nothing, The symptoms are aggravated by bowel movement. Associate signs and symptoms: Pertinent positives: diarrhea, lower GI bleeding, Pertinent negatives: fever. The patient has experienced a previous episode. The patient has not recently seen a physician. Reports dark red blood per rectum, for 3 days, passes blood with flatulence and with bowel movements, reports feels fatigued and generalized weakness. No fever. No vomiting. Reports no abd pain.. Historical: - Allergies: 16:00 PENICILLINS; aa5 - Home Meds: 16:03 Crestor Oral [Active]; Glimepiride Oral [Active]; Metoprolol Tartrate Oral [Active]; aa5 Plavix Oral [Active]; - PMHx: 16:00 CAD; Diabetes - NIDDM; Hypertension; aa5 - PSHx: 16:00 heart valve replacement; Hysterectomy; Appendectomy; Cholecystectomy; aa5 - Immunization history:: Adult Immunizations unknown. - Social history:: Smoking status: Patient denies any tobacco usage or history of. - Family history:: not pertinent. - Hospitalizations: : No recent hospitalization is reported. ROS: 20:07 Constitutional: Negative for fever, chills, and weight loss, Eyes: Negative for injury, rn pain, redness, and discharge, Neck: Negative for injury, pain, and swelling, Cardiovascular: Negative for chest pain, palpitations, and edema, Respiratory: Negative for shortness of breath, cough, wheezing, and pleuritic chest pain, Abdomen/GI: Negative for abdominal pain, nausea, vomiting, and constipation, MS/Extremity: Negative for injury and deformity, Skin: Negative for injury, rash, and discoloration, Neuro: Negative for headache, numbness, tingling, and seizure. Exam: 20:07 Constitutional: This is a well developed, well nourished patient who is awake, alert, rn and in no acute distress. Head/Face: Normocephalic, atraumatic. Eyes: Pupils equal round and reactive to light, extra-ocular motions intact. Lids and lashes normal. Conjunctiva and sclera are non-icteric and not injected. Cornea within normal limits. Periorbital areas with no swelling, redness, or edema. ENT: dry MM Cardiovascular: tachycardic, regular Respiratory: No increased work of breathing, no retractions or nasal flaring. Abdomen/GI: soft, non-tender, non-distended Skin: Warm, dry MS/ Extremity: Pulses equal, no cyanosis. Neurovascular intact. Full, normal range of motion. Equal circumference. Neuro: Awake and alert, GCS 15, oriented to person, place, time, and situation. Vital Signs: 16:00 BP 154 / 81; Pulse 110; Resp 18 S; Temp 98.9(TE); Pulse Ox 99% on R/A; aa5 MDM: 19:15 Patient medically screened. rn 20:51 Differential diagnosis: hemorrhoids, AVM, diverticulosis, diverticulitis, colitis. Data rn reviewed: vital signs, nurses notes, old medical records, lab test result(s), radiologic studies, CT scan, and as a result, I will admit patient. Counseling: I had a detailed discussion with the patient and/or guardian regarding: the historical points, exam findings, and any diagnostic results supporting the discharge/admit diagnosis, lab results, radiology results, the need for further work-up and treatment in the hospital. Response to treatment: the patient's symptoms have mildly improved after treatment, and as a result, I will admit patient. Admission orders: after a detailed discussion of the patient's condition and case, the admit orders are written by me. 02/03 19:25 Order name: Basic Metabolic Panel rn 02/03 19:25 Order name: CBC with Diff rn 02/03 19:25 Order name: Hepatic Function rn 02/03 19:25 Order name: Lipase rn 02/03 19:25 Order name: PT-INR; Complete Time: 20:28 rn 02/03 19:25 Order name: Ptt, Activated; Complete Time: 20:28 02/03 19:25 Order name: CT Abd/Pelvis - IV Contrast Only; Complete Time: 20:47 02/03 19:25 Order name: Type And Screen 02/03 19:26 Order name: Basic Metabolic Panel; Complete Time: 20:28 [facility] 02/03 19:26 Order name: CBC with Automated Diff; Complete Time: 20:28 [facility] 02/03 19:26 Order name: Liver (Hepatic) Function; Complete Time: 20:28 [facility] 02/03 19:26 Order name: Lipase; Complete Time: 20:28 [facility] 02/03 23:25 Order name: CREATININE WHOLE BLOOD [facility] 02/03 23:53 Order name: CBC with Automated Diff; Complete Time: 00:23 [facility] 02/03 19:25 Order name: IV Saline Lock; Complete Time: 19:43 rn 02/03 19:25 Order name: Labs collected and sent; Complete Time: 19:43 rn Administered Medications: 19:43 Drug: NS 0.9% 500 ml Route: IV; Rate: bolus; Site: left forearm; wh Disposition: 02/04/20 20:53 Hospitalization ordered by Brad Berumen for Observation. Preliminary diagnosis are Anemia, unspecified, Diverticulosis of intestine, part unspecified, without perforation or abscess with bleeding, Lower GI bleed. - Bed requested for [facility] ER HOLD. - Status is Observation. bb - Condition is Stable. - Problem is new. - Symptoms have improved. Signatures: Dispatcher [employer] EDMS Rebecca Kelly RN RN bb Ag Gonzalez MD MD rn Calderon, Audri, RN RN aa5 Vitaliy Kinney, BOX CAR BRACER-C BOX CAR BRACER-Cla1 Reyna Joe, RN RN tl1 Remedios Barcenas Corrections: (The following items were deleted from the chart) 21:46 20:53 Hospitalization Ordered by Brad Berumen DO for Observation. Preliminary tl1 diagnosis is Anemia, unspecified; Diverticulosis of intestine, part unspecified, without perforation or abscess with bleeding; Lower GI bleed. Bed requested for Telemetry/MedSurg (observation). Status is Observation. Condition is Stable. Problem is new. Symptoms have improved. rn 02/04 03:00 02/03 21:46 02/04/2020 20:53 Hospitalization Ordered by Brad Berumen DO for bb Observation. Preliminary diagnosis is Anemia, unspecified; Diverticulosis of intestine, part unspecified, without perforation or abscess with bleeding; Lower GI bleed. Bed requested for [facility] ER HOLD. Status is Observation. Condition is Stable. Problem is new. Symptoms have improved. tl1
--- NOTE | 2020-02-04 20:54 | ER ---
Nurse's Notes [facility] Name: Charlene Stokes Age: 79 yrs Sex: Female : 1940 Arrival Date: 02/04/2020 Time: 15:18 Bed 8 Private MD: Diagnosis: Anemia, unspecified;Diverticulosis of intestine, part unspecified, without perforation or abscess with bleeding;Lower GI bleed Presentation: 02/03 16:00 Chief complaint: Patient states: "I am pooping blood, it started on Sunday". Pt denies aa5 nausea/vomiting. Reports diarrhea. Pt denies abd pain. Pt's son states "I think she had colitis before and she bleed that time too". Coronavirus screen: Client denies travel out of the [place] in the last 14 days. At this time, the client does not indicate any symptoms associated with coronavirus-19. Ebola Screen: Patient negative for fever greater than or equal to 101.5 degrees Fahrenheit, and additional compatible Ebola Virus Disease symptoms. Initial Sepsis Screen: Does the patient meet any 2 criteria? No. Patient's initial sepsis screen is negative. Does the patient have a suspected source of infection? No. Patient's initial sepsis screen is negative. Risk Assessment: Do you want to hurt yourself or someone else? Patient reports no desire to harm self or others. Onset of symptoms was January 2020. 16:00 Method Of Arrival: Ambulatory aa5 16:00 Acuity: KELLE 3 aa5 Historical: - Allergies: 16:00 PENICILLINS; aa5 - Home Meds: 16:03 Crestor Oral [Active]; Glimepiride Oral [Active]; Metoprolol Tartrate Oral [Active]; aa5 Plavix Oral [Active]; - PMHx: 16:00 CAD; Diabetes - NIDDM; Hypertension; aa5 - PSHx: 16:00 heart valve replacement; Hysterectomy; Appendectomy; Cholecystectomy; aa5 - Immunization history:: Adult Immunizations unknown. - Social history:: Smoking status: Patient denies any tobacco usage or history of. - Family history:: not pertinent. - Hospitalizations: : No recent hospitalization is reported. Screenin:04 Abuse screen: Denies threats or abuse. Denies injuries from another. Nutritional rr5 screening: No deficits noted. Tuberculosis screening: No symptoms or risk factors identified. Fall Risk IV access (20 points). Total Bartlett Fall Scale indicates No Risk (0-24 pts). Assessment: 19:50 General: Appears in no apparent distress. comfortable, Behavior is calm, cooperative, rr5 appropriate for age. 19:50 Pain: Denies pain. Neuro: Level of Consciousness is awake, alert, obeys commands, rr5 Oriented to person, place, time. Cardiovascular: Capillary refill < 3 seconds Patient's skin is warm and dry. Respiratory: Airway is patent Respiratory effort is even, unlabored, Respiratory pattern is regular, symmetrical. GI: Abdomen is round non-distended, Reports bloody stool. : No signs and/or symptoms were reported regarding the genitourinary system. EENT: No signs and/or symptoms were reported regarding the EENT system. Derm: Skin is fragile, is thin, Skin temperature is warm. Musculoskeletal: Capillary refill < 3 seconds. 20:04 Reassessment: Patient appears in no apparent distress at this time. Patient is alert, rr5 oriented x 3, equal unlabored respirations, skin warm/dry/pink. send to CT scan assisted by ct staff. 20:20 Reassessment: Patient appears in no apparent distress at this time. back from CT scan. rr5 Vital Signs: 16:00 BP 154 / 81; Pulse 110; Resp 18 S; Temp 98.9(TE); Pulse Ox 99% on R/A; aa5 ED Course: 15:18 Patient arrived in ED. ds1 16:00 Arm band placed on. aa5 16:02 Triage completed. aa5 19:15 Ag Gonzalez MD is Attending Physician. rn 19:32 Tra Salinas, PAU is Primary Nurse. rr5 19:50 Inserted saline lock: 20 gauge in left forearm, using aseptic technique. Blood rr5 collected. 20:04 Patient has correct armband on for positive identification. Placed in gown. Bed in low rr5 position. Call light in reach. Pulse ox on. NIBP on. 20:12 CT Abd/Pelvis - IV Contrast Only In Process Unspecified. EDMS 20:52 Brad Berumen DO is Hospitalizing Provider. rn Administered Medications: 19:43 Drug: NS 0.9% 500 ml Route: IV; Rate: bolus; Site: left forearm; Outcome: 20:53 Decision to Hospitalize by Provider. rn 02/04 03:00 Patient left the ED. bb Signatures: Dispatcher [employer] EDUT Gwen Rogers ds1 Rebecca Kelly RN RN bb Ag Gonzalez MD MD rn Calderon, Audri, RN RN aa5 Remedios Barcenas Tra Salinas RN RN rr5
[2020-02-04] MEDS ORDERED: ONDANSETRON 4 MG/2 ML VIAL IV PRN (22:01)
[2020-02-04] MEDS ORDERED: HYDRALAZINE HCL 20 MG/ML VIAL IV PRN (22:01)
[2020-02-04] MEDS ORDERED: SODIUM CHLORIDE 0.9% 10ML INJ IV PRN (22:01)
[2020-02-04] MEDS ORDERED: ACETAMINOPHEN 500 MG TAB PO PRN (22:01)
[2020-02-04 22:27] VITALS: BMI 25.8
[2020-02-04 23:43] LABS: Absolute Lymphocytes (CBC) 1.1 K/uL (0.7-4.9); Basophils % 0.5 % (0-1.3); Hematocrit 21.3 % (36.0-45.0); Lymphocytes % 20.5 % (15.3-44.8); MPV 7.5 fL (7.6-11.3); RBC Red Blood Cell Count 2.17 M/uL (3.86-4.86)
--- NOTE | 2020-02-04 23:47 | P.HP ---
Certification for Inpatient Patient admitted to: Inpatient With expected LOS: >2 Midnights Patient will require the following post-hospital care: None Practitioner: I am a practitioner with admitting privileges, knowledge of patient current condition, hospital course, and medical plan of care. Services: Services provided to patient in accordance with Admission requirements found in Title 42 Section 412.3 of the Code of Federal Regulations <Vitaliy Kinney - Last Filed: 02/04/20 23:41> Patient History Date of Service: 02/04/20 Primary Care Provider: Dr. Rebolledo Reason for admission: LGIB History of Present Illness: 79-year-old female with history of diabetes mellitus type 2, hypertension, hyperlipidemia, coronary artery disease, aortic valve replacement currently on Plavix presents emergency department for bright red blood per rectum. Patient reports that she has had maroon appearing blood in stool approximately 3 to 4 times a day for the past 3 days. 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 Patient reports that she had a lot of testing done at that time, believe she likely had colonoscopy done but cannot be sure. Initial workup in the ED shows hemoglobin 9.8, hematocrit 27.2. CT scan performed showing diverticulosis without diverticulitis. Patient hemodynamically stable. ED provider wishes to admit patient for further evaluation and management. When I saw the patient in the emergency department she is awake, alert, oriented x3. Patient is in no pain, vital signs stable this time. Patient be admitted for further evaluation and management. - Past Medical/Surgical History Has patient received pneumonia vaccine in the past: Yes Diabetic: Yes -: hyperlipidemia -: HTN -: Diabetes mellitus type 2 -: CAD -: appendectomy -: cholecystectomy -: hysterectomy -: heart valve replacement- aortic -: heart stents x6 - Family History Mother History Unknown: Yes -: Hypertension, Other (see notes) Notes: Alzheimers Father History Unknown: Yes -: Cancer Notes: lung cancer/smoker Brother History Unknown: Yes -: Cancer Notes: spinal cancer at 8 mos. - Social History Smoking Status: Never smoker Alcohol use: No CD- Drugs: No Caffeine use: Yes Place of Residence: Home <Vitaliy Kinney - Last Filed: 02/04/20 23:41> Date of Service: 02/05/20 Home medications list reviewed: Yes - Past Medical/Surgical History -: Hyperlipidemia -: History of diverticulosis -: History of GI bleed Psychosocial/ Personal History: Patient lives at home <Brad Berumen - Last Filed: 02/05/20 08:57> Allergies Penicillins Allergy (Mild, Verified 05/21/14 01:18) Hives Home Medications: Clopidogrel Bisulfate [Plavix] 75 mg PO DAILY 07/28/11 Glyburide [Diabeta] 1.25 mg PO DAILY 05/21/14 Metoprolol Tartrate [Lopressor] 100 mg PO DAILY 05/21/14 Rosuvastatin [Crestor*] 5 mg PO BEDTIME 05/21/14 Review of Systems 10-point ROS is otherwise unremarkable Gastrointestinal: Hematochezia, As per HPI <Vitaliy Kinney - Last Filed: 02/04/20 23:41> Physical Examination - Physical Exam General: Alert, In no apparent distress HEENT: Atraumatic, PERRLA, Mucous membr. moist/pink Neck: Supple, 2+ carotid pulse no bruit, No LAD, Without JVD or thyroid abnormality Respiratory: Clear to auscultation bilaterally, Normal air movement Cardiovascular: Regular rate/rhythm, Normal S1 S2 Gastrointestinal: Normal bowel sounds, No tenderness Musculoskeletal: No tenderness Integumentary: No rashes Neurological: Normal gait, Normal speech, Normal strength at 5/5 x4 extr, Normal tone, Normal affect - Studies Laboratory Data (last 24 hrs) 02/04/20 19:38: PT 11.8, INR 1.00, APTT 23.9 L 02/04/20 19:38: WBC 8.8, Hgb 9.8 L, Hct 27.2 L, Plt Count 203 02/04/20 19:38: Sodium 140, Potassium 3.7, BUN 25 H, Creatinine 0.93, Glucose 134 H, Total Bilirubin 0.3, AST 22, ALT 22, Alkaline Phosphatase 111, Lipase 50 L <Vitaliy Kinney - Last Filed: 02/04/20 23:41> - Studies Laboratory Data (last 24 hrs) 02/04/20 19:38: PT 11.8, INR 1.00, APTT 23.9 L 02/04/20 19:38: WBC 8.8, Hgb 9.8 L, Hct 27.2 L, Plt Count 203 02/04/20 19:38: Sodium 140, Potassium 3.7, BUN 25 H, Creatinine 0.93, Glucose 134 H, Total Bilirubin 0.3, AST 22, ALT 22, Alkaline Phosphatase 111, Lipase 50 L 02/04/20 03:30: Hgb Cancelled, Hct Cancelled <Brad Berumen - Last Filed: 02/05/20 08:57> Assessment and Plan - Plan Assessment Suspected lower GI bleed Diabetes mellitus type 2 Hypertension Coronary artery disease Plan Suspected lower GI bleed: Initial hemoglobin 9.8, will trend hemoglobin/hematocrit q.4h x3. Gastroenterology consult in place, spoke with answering service. Give blood products as needed, NPO. Appreciate further input from gastroenterology. Protonix IV. Diabetes mellitus type 2: Q.6h Accu-Chek, sliding scale insulin therapy. Hypertension: P.r.n. medications at this time as patient will be NPO. Coronary artery disease: Hold Plavix. Discharge Plan: Home Plan to discharge in: Greater than 2 days - Advance Directives Does patient have a Living Will: No Does patient have a Durable POA for Healthcare: No - Code Status/Comfort Care Code Status Assessed: Yes (Full code) Critical Care: No Time Spent Managing Pts Care (In Minutes): 55 <Vitaliy Kinney - Last Filed: 02/04/20 23:41> - Plan Case discussed in detail with nurse practitioner. Agree with evaluation, assessment and plan of care. Patient to receive transfusion. Hold Plavix. Will provide platelets. Case discussed with GI and Hematology. Will continue to monitor closely. See progress note for details. <Brad Berumen - Last Filed: 02/05/20 08:57>
[2020-02-05] MEDS ORDERED: NA CHLORIDE 0.9% 250 ML IV SCH (01:00)
[2020-02-05] MEDS ORDERED: NA CHLORIDE 0.9% 1,000 ML ONE (01:44)
[2020-02-05 04:11] LABS: Magnesium 2.1 mg/dL (1.8-2.4); Potassium 3.6 mmol/L (3.5-5.1); Thyroid Stimulating Hormone 2.48 uIU/mL (0.360-3.740)
[2020-02-05] MEDS: NA CHLORIDE 0.9% 1,000 ML IV SCH ×3 (06:06→17:50)
[2020-02-05] MEDS ORDERED: METOPROLOL TARTRATE 5 MG/5 ML INJ IV PRN (06:44)
[2020-02-05] MEDS ORDERED: INSULIN -REGULAR HUMAN 50 UNIT/0.5 ML ML SQ SCH ×2 (07:30→12:00)
[2020-02-05] MEDS ORDERED: GLUCAGON 1 MG/VIAL IM PRN (08:01)
[2020-02-05] MEDS ORDERED: D50W 25 GM/50 ML SYRINGE IV PRN (08:01)
--- NOTE | 2020-02-05 08:56 | P.PN ---
Subjective Date of Service: 02/05/20 Primary Care Provider: Dr. Rebolledo Chief Complaint: LGIB Subjective: Doing well (Patient receiving blood. Patient doing well this time. Patient had some bleeding to the rectum this morning.) Physical Examination - Vital Signs Temperature: 98.0 F Blood Pressure: 127/67 Pulse: 87 Respirations: 16 Pulse Ox (%): 99 - Physical Exam General: Alert, In no apparent distress, Oriented x3, Cooperative HEENT: Atraumatic Neck: Supple Respiratory: Clear to auscultation bilaterally, Normal air movement Cardiovascular: Normal pulses, Regular rate/rhythm Gastrointestinal: Normal bowel sounds, Soft and benign, Non-distended, No tenderness, No masses, No rebound, No guarding Musculoskeletal: No erythema, No tenderness, No warmth Integumentary: No tenderness/swelling, No erythema, No warmth, No cyanosis Neurological: Normal speech, Normal strength at 5/5 x4 extr, Normal tone, Normal affect - Studies Laboratory Data (last 24 hrs) 02/04/20 19:38: PT 11.8, INR 1.00, APTT 23.9 L 02/04/20 19:38: WBC 8.8, Hgb 9.8 L, Hct 27.2 L, Plt Count 203 02/04/20 19:38: Sodium 140, Potassium 3.7, BUN 25 H, Creatinine 0.93, Glucose 134 H, Total Bilirubin 0.3, AST 22, ALT 22, Alkaline Phosphatase 111, Lipase 50 L 02/04/20 03:30: Hgb Cancelled, Hct Cancelled Medications List Reviewed: Yes Assessment & Plan Discharge Plan: Home Plan to discharge in: Greater than 2 days Physician Review Additional Text: Impression: Hematochezia with acute anemia secondary to lower GI bleed likely related to diverticulosis without diverticulitis on Plavix Acute renal injury likely dehydration CAD Hypertension Diabetes mellitus type 2 non-insulin dependent Hyperlipidemia GERD Plan: Hematochezia with acute anemia secondary to lower GI bleed likely related to diverticulosis without diverticulitis on Plavix: Initial hemoglobin 9.8. Repeat 7.5. Patient receiving 2 units of packed red blood cells at this time. Case discussed with GI. Will keep the patient NPO at this time. Suspect diverticulosis. Will cover with Cipro and Flagyl. Continue IV fluids. Continue to monitor hemoglobin closely. Maintain hemoglobin above 7.0. Plavix has been discontinued. Case discussed with hematology. Patient may benefit with platelets. Will provide 1 unit platelets. Will continue to monitor closely. Will discuss further with GI. Patient may require intervention once stable. Anticipate improvement over the next 72 hr. Acute renal injury likely dehydration: Continue IV fluids. Renal function improved. CAD: Plavix discontinued. Will monitor closely. Hypertension: Will provide IV medication as needed. Once taking oral intake with then will switch to oral metoprolol. Diabetes mellitus type 2 non-insulin dependent: Continue Accu-Cheks and sliding scale. Hyperlipidemia: Will continue with medication once taking oral intake. GERD: Suspect GERD at this time. Will continue with Protonix. Await recommendations by GI. Time Spent Managing Pts Care (In Minutes): 55
[2020-02-05] MEDS ORDERED: PANTOPRAZOLE 40 MG INJ IVP SCH (09:00)
[2020-02-05] MEDS: METRONIDAZOLE 500mg IVPB 500 MG/100 ML BAG IV SCH ×2 (09:18→17:43)
[2020-02-05] MEDS: KCL 20 MEQ/100 mL IVPB 20 MEQ/100 ML BAG IV SCH ×2 (09:19→11:15)
[2020-02-05] MEDS ORDERED: KCL 20 MEQ/100 mL IVPB 20 MEQ/100 ML BAG IV ONE (09:25)
[2020-02-05] MEDS ORDERED: CIPROFLOXACIN 400mg IV 0 MG/0 ML BAG IV ONE (09:25)
[2020-02-05] MEDS ORDERED: PANTOPRAZOLE 40 MG INJ ONE (09:30)
[2020-02-05] MEDS ORDERED: METRONIDAZOLE 500mg IVPB 500 MG/100 ML BAG IV ONE (09:30)
[2020-02-05] MEDS ORDERED: INFLUENZA VACCINE (for 3y+) 0.5 ML DOSE IMVAC ONE (10:00)
[2020-02-05] MEDS ORDERED: CIPROFLOXACIN 400mg IV 400 MG/200 ML BAG IV ONE (10:02)
[2020-02-05] MEDS: CIPROFLOXACIN 400mg IV 400 MG/200 ML BAG IV SCH ×2 (11:14→22:14)
[2020-02-05] MEDS ORDERED: NA CHLORIDE 0.9% 50 ML ONE (14:02)
[2020-02-05] MEDS ORDERED: FUROSEMIDE 20 MG/ 2ML VIAL IV ONE (18:00)
[2020-02-05 19:15] LABS: Hematocrit 28.4 % (36.0-45.0)
[2020-02-05] MEDS: INSULIN -REGULAR HUMAN 50 UNIT/0.5 ML ML SQ SCH (21:00)
[2020-02-05] MEDS: ROSUVASTATIN 10 MG TAB PO SCH (22:13)
[2020-02-05] MEDS: PANTOPRAZOLE 40 MG INJ IVP SCH (22:14)
[2020-02-06] MEDS: METRONIDAZOLE 500mg IVPB 500 MG/100 ML BAG IV SCH ×3 (00:38→22:00)
[2020-02-06] MEDS ORDERED: NA CHLORIDE 0.9% 100 ML ONE (03:50)
[2020-02-06] MEDS: NA CHLORIDE 0.9% 1,000 ML IV SCH (04:01)
[2020-02-06 06:31] LABS: Absolute Lymphocytes (CBC) 0.8 K/uL (0.7-4.9); Basophils % 0.7 % (0-1.3); Hematocrit 24.9 % (36.0-45.0); Lymphocytes % 17.7 % (15.3-44.8); MPV 7.8 fL (7.6-11.3); RBC Red Blood Cell Count 2.63 M/uL (3.86-4.86)
[2020-02-06 06:44] LABS: Magnesium 1.9 mg/dL (1.8-2.4); Potassium 3.3 mmol/L (3.5-5.1)
[2020-02-06] MEDS: INSULIN -REGULAR HUMAN 50 UNIT/0.5 ML ML SQ SCH ×4 (07:30→21:00)
[2020-02-06] MEDS ORDERED: POTASSIUM 25 MEQ EFFERV TAB PO ONE ×2 (07:46→19:00)
[2020-02-06] MEDS: CIPROFLOXACIN 400mg IV 400 MG/200 ML BAG IV SCH ×2 (08:34→22:30)
[2020-02-06] MEDS: PANTOPRAZOLE 40 MG INJ IVP SCH ×2 (08:37→21:58)
--- NOTE | 2020-02-06 09:19 | P.PN ---
Subjective Date of Service: 02/06/20 Primary Care Provider: Dr. Rebolledo Chief Complaint: LGIB Subjective: Improving, Doing well Physical Examination - Vital Signs Temperature: 98.2 F Blood Pressure: 154/70 Pulse: 76 Respirations: 15 Pulse Ox (%): 100 - Physical Exam General: Alert, In no apparent distress, Oriented x3, Cooperative HEENT: Atraumatic Neck: Supple Respiratory: Clear to auscultation bilaterally, Normal air movement Cardiovascular: Normal pulses, Regular rate/rhythm Gastrointestinal: Normal bowel sounds, Soft and benign, Non-distended, No tenderness, No masses, No rebound, No guarding Musculoskeletal: No erythema, No tenderness, No warmth Integumentary: No tenderness/swelling, No erythema, No warmth, No cyanosis Neurological: Normal speech, Normal strength at 5/5 x4 extr, Normal tone, Normal affect - Studies Medications List Reviewed: Yes Assessment & Plan Discharge Plan: Home Plan to discharge in: 24 Hours Physician Review Additional Text: Impression: Hematochezia with acute anemia secondary to lower GI bleed related to diverticulosis without diverticulitis on Plavix Acute renal injury likely dehydration CAD Hypertension Diabetes mellitus type 2 non-insulin dependent Hyperlipidemia GERD Plan: Hematochezia with acute anemia secondary to lower GI bleed related to diverticulosis without diverticulitis on Plavix: Continue to hold Plavix. Patient has received 2 units of packed red blood cells. Hemoglobin appears stable. Will continue to monitor hemoglobin. May need further transfusion if hemoglobin below 7.0. Continue IV antibiotic therapy. Case discussed with GI. No intervention required at this time. GI suspects lower GI bleed related to diverticulosis. Will advance diet as tolerated. Anticipate improvement over the next 24-48 hr. Likely discharge within that time if tolerating diet and hemoglobin stable. Patient will require colonoscopy as an outpatient. Acute renal injury likely dehydration: Continue IV fluids. Renal function improved. CAD: Plavix discontinued. Will monitor closely. Hypertension: Will restart medication Diabetes mellitus type 2 non-insulin dependent: Continue Accu-Cheks and sliding scale. Hyperlipidemia: Will continue with medication once taking oral intake. GERD: Suspect GERD at this time. Will continue with Protonix. Time Spent Managing Pts Care (In Minutes): 55
[2020-02-06] MEDS ORDERED: NACHLORIDE 0.45% 1,000 ML IV SCH (10:00)
[2020-02-06 11:05] LABS: Hematocrit 24.6 % (36.0-45.0)
[2020-02-06 17:26] LABS: Hematocrit 23.8 % (36.0-45.0)
[2020-02-06] MEDS: NACHLORIDE 0.45% 1,000 ML IV SCH (18:14)
[2020-02-06] MEDS ORDERED: NA CHLORIDE 0.9% 250 ML IV SCH (19:00)
[2020-02-06] MEDS: ROSUVASTATIN 10 MG TAB PO SCH (20:08)
[2020-02-06] MEDS: METOPROLOL TAR 50 MG TAB PO SCH (20:08)
[2020-02-07] MEDS ORDERED: NA CHLORIDE 0.9% 250 ML ONE (00:27)
[2020-02-07] MEDS: METRONIDAZOLE 500mg IVPB 500 MG/100 ML BAG IV SCH ×3 (05:29→21:55)
[2020-02-07] MEDS: NACHLORIDE 0.45% 1,000 ML IV SCH ×3 (05:30→21:55)
[2020-02-07 06:36] LABS: Absolute Lymphocytes (CBC) 0.9 K/uL (0.7-4.9); Basophils % 0.9 % (0-1.3); Hematocrit 27.2 % (36.0-45.0); Lymphocytes % 23.5 % (15.3-44.8); RBC Red Blood Cell Count 2.88 M/uL (3.86-4.86)
[2020-02-07 07:07] LABS: Potassium 3.6 mmol/L (3.5-5.1)
[2020-02-07] MEDS: INSULIN -REGULAR HUMAN 50 UNIT/0.5 ML ML SQ SCH ×4 (07:30→20:54)
[2020-02-07] MEDS: PANTOPRAZOLE 40 MG INJ IVP SCH ×2 (07:59→20:52)
[2020-02-07] MEDS: METOPROLOL TAR 50 MG TAB PO SCH ×2 (08:00→20:53)
[2020-02-07] MEDS: CIPROFLOXACIN 400mg IV 400 MG/200 ML BAG IV SCH ×2 (08:00→20:53)
[2020-02-07] MEDS ORDERED: POTASSIUM CL SA 10 MEQ TAB PO ONE (09:00)
--- NOTE | 2020-02-07 10:02 | P.PN ---
Subjective Date of Service: 02/07/20 Primary Care Provider: Dr. Rebolledo Chief Complaint: LGIB Subjective: Other (Patient had bowel movement with clots last night. Today she reports bowel movement without blood clot or blood.) Physical Examination - Vital Signs Temperature: 98.3 F Blood Pressure: 133/60 Pulse: 64 Respirations: 18 Pulse Ox (%): 100 - Physical Exam General: Alert, In no apparent distress, Oriented x3, Cooperative HEENT: Atraumatic Neck: Supple Respiratory: Clear to auscultation bilaterally, Normal air movement Cardiovascular: Normal pulses, Regular rate/rhythm Gastrointestinal: Normal bowel sounds, Soft and benign, Non-distended, No tenderness, No masses, No rebound, No guarding Musculoskeletal: No erythema, No tenderness, No warmth Integumentary: No tenderness/swelling, No erythema, No warmth, No cyanosis Neurological: Normal speech, Normal strength at 5/5 x4 extr, Normal tone, Normal affect - Studies Medications List Reviewed: Yes Assessment & Plan Discharge Plan: Home Plan to discharge in: 24 Hours Physician Review Additional Text: Impression: Hematochezia with acute anemia secondary to lower GI bleed related to diverticulosis without diverticulitis on Plavix Acute renal injury likely dehydration CAD Hypertension Diabetes mellitus type 2 non-insulin dependent Hyperlipidemia GERD Plan: Hematochezia with acute anemia secondary to lower GI bleed related to diverticulosis without diverticulitis on Plavix: Continue to hold Plavix. Patient has done well with transfusion. Patient reports 1st stool without blood or blood clots. Continue to advance diet. Continue to monitor hemoglobin. If significantly improved over the next 24 hr will consider discharge tomorrow. Acute renal injury likely dehydration: Continue IV fluids. Renal function improved. CAD: Plavix discontinued. Will monitor closely. Hypertension: Continue medication Diabetes mellitus type 2 non-insulin dependent: Continue Accu-Cheks and sliding scale. Hyperlipidemia: Will continue with medication once taking oral intake. GERD: Suspect GERD at this time. Will continue with Protonix. Time Spent Managing Pts Care (In Minutes): 55
[2020-02-07 16:19] LABS: Hematocrit 30.1 % (36.0-45.0)
[2020-02-07] MEDS: ROSUVASTATIN 10 MG TAB PO SCH (20:52)
[2020-02-07 22:57] LABS: Hematocrit 25.2 % (36.0-45.0)
[2020-02-08] MEDS: METRONIDAZOLE 500mg IVPB 500 MG/100 ML BAG IV SCH ×3 (06:05→21:50)
[2020-02-08 06:30] LABS: Absolute Lymphocytes (CBC) 0.8 K/uL (0.7-4.9); Basophils % 0.6 % (0-1.3); Hematocrit 26.4 % (36.0-45.0); Lymphocytes % 19.1 % (15.3-44.8); MPV 7.6 fL (7.6-11.3); RBC Red Blood Cell Count 2.76 M/uL (3.86-4.86)
[2020-02-08 06:41] LABS: Potassium 3.6 mmol/L (3.5-5.1)
[2020-02-08] MEDS: INSULIN -REGULAR HUMAN 50 UNIT/0.5 ML ML SQ SCH ×4 (07:30→21:00)
[2020-02-08] MEDS ORDERED: POTASSIUM CL SA 10 MEQ TAB PO ONE (09:00)
[2020-02-08] MEDS: METOPROLOL TAR 50 MG TAB PO SCH ×2 (09:04→21:51)
[2020-02-08] MEDS: CIPROFLOXACIN 400mg IV 400 MG/200 ML BAG IV SCH ×2 (09:04→21:50)
[2020-02-08] MEDS: PANTOPRAZOLE 40 MG INJ IVP SCH ×2 (09:05→21:51)
[2020-02-08] MEDS: NACHLORIDE 0.45% 1,000 ML IV SCH ×3 (10:14→21:52)
--- NOTE | 2020-02-08 10:18 | P.PN ---
Subjective Date of Service: 02/08/20 Primary Care Provider: Dr. Rebolledo Chief Complaint: LGIB Subjective: Other (Patient reports improvement. Patient had melanotic stool last night. No abdominal pain, nausea vomiting noted.) Physical Examination - Vital Signs Temperature: 97.8 F Blood Pressure: 121/62 Pulse: 62 Respirations: 18 Pulse Ox (%): 99 - Physical Exam General: Alert, In no apparent distress, Oriented x3, Cooperative HEENT: Atraumatic Neck: Supple Respiratory: Clear to auscultation bilaterally, Normal air movement Cardiovascular: Normal pulses, Regular rate/rhythm Gastrointestinal: Normal bowel sounds, Soft and benign, Non-distended, No tenderness, No masses, No rebound, No guarding Musculoskeletal: No erythema, No tenderness, No warmth Integumentary: No tenderness/swelling, No erythema, No warmth, No cyanosis Neurological: Normal speech, Normal strength at 5/5 x4 extr, Normal tone, Normal affect - Studies Medications List Reviewed: Yes Assessment & Plan Discharge Plan: Home Plan to discharge in: 24 Hours Physician Review Additional Text: Impression: Hematochezia with acute anemia secondary to lower GI bleed related to diverticulosis without diverticulitis on Plavix Acute renal injury likely dehydration CAD Hypertension Diabetes mellitus type 2 non-insulin dependent Hyperlipidemia GERD Plan: Hematochezia with acute anemia secondary to lower GI bleed related to diverticulosis without diverticulitis on Plavix: Previous colonoscopy results from [facility] reviewed. This was done in January of 2019. Patient found to have multiple small and large mouth diverticula throughout the entire colon, evidence of past bleeding was noted. Her Plavix was held at that time. Patient was eventually discharge. There was some consideration at the time to consider CT angiogram of the abdomen if the patient Re bled. This was discussed in detail with GI. Continue to hold Plavix. Patient has received 3 units of packed red blood cells during this hospitalization. Hemoglobin appears to be stable. Will repeat H&H later today. Continue to monitor hemoglobin. Will obtain GI bleeding scan tomorrow to further evaluate. If the patient continues to bleed then will order CT angiogram of the abdomen to further evaluate. Hopefully hemoglobin will stabilize. Will need to consider transfer to [facility] if the patient has continued bleed and requires interventional radiology embolization. Patient may require colectomy in the future if this persists. For now continue to monitor closely. I will turn the service over to the hospitalist team tomorrow. I will go over plan of care with him. Advanced care planning address in detail. 30 min. Plan of care discussed as above with patient. Acute renal injury likely dehydration: Continue IV fluids. Renal function improved. CAD: Plavix discontinued. Will monitor closely. Hypertension: Continue medication Diabetes mellitus type 2 non-insulin dependent: Continue Accu-Cheks and sliding scale. Hyperlipidemia: Will continue with medication once taking oral intake. GERD: Suspect GERD at this time. Prior EGD done January 2019 showed normal esophagus, normal duodenum bulb, nonbleeding diverticulum was found at the area of papilla. Will continue with Protonix. Time Spent Managing Pts Care (In Minutes): 55
[2020-02-08 15:30] LABS: Hematocrit 27.8 % (36.0-45.0)
[2020-02-08] MEDS: ROSUVASTATIN 10 MG TAB PO SCH (21:50)
[2020-02-09 05:40] LABS: Absolute Lymphocytes (CBC) 0.7 K/uL (0.7-4.9); Basophils % 0.7 % (0-1.3); Hematocrit 24.3 % (36.0-45.0); Lymphocytes % 20.2 % (15.3-44.8); RBC Red Blood Cell Count 2.54 M/uL (3.86-4.86)
[2020-02-09 05:47] LABS: Potassium 3.5 mmol/L (3.5-5.1)
[2020-02-09] MEDS: METRONIDAZOLE 500mg IVPB 500 MG/100 ML BAG IV SCH ×3 (06:34→21:15)
[2020-02-09] MEDS: INSULIN -REGULAR HUMAN 50 UNIT/0.5 ML ML SQ SCH ×4 (07:30→20:04)
[2020-02-09] MEDS ORDERED: POTASSIUM 25 MEQ EFFERV TAB PO ONE (09:00)
[2020-02-09] MEDS: CIPROFLOXACIN 400mg IV 400 MG/200 ML BAG IV SCH ×2 (09:10→20:04)
[2020-02-09] MEDS: PANTOPRAZOLE 40 MG INJ IVP SCH ×2 (09:12→20:04)
[2020-02-09] MEDS: METOPROLOL TAR 50 MG TAB PO SCH ×2 (09:14→20:04)
--- NOTE | 2020-02-09 10:54 | RAD REPORT ---
EXAM DESCRIPTION: RAD - Chest Single View - 02/09/2020 3:43 am CLINICAL HISTORY: Picc line placement COMPARISON: None. TECHNIQUE: AP Chest. FINDINGS: Heart is normal in size. Mild aortic atherosclerosis. There is asymmetric left hilar vascu lar crowding due to rotation and positioning. No consolidation. No pneumothorax or pleural fluid. Haz y left upper lobe airspace opacities may represent pneumonitis. Left subclavian PICC line is positioned in the upper right atrial region. There is a metallic plate projecting over the mediastinum. IMPRESSION: 1. Left subclavian PICC line is in the upper right atrial region. No pneumothorax. 2. Possible left upper lobe pneumonitis. Electronically signed by: Rosa Porras DO 02/09/2020 3:52 AM SENIOR QA TESTER Due to temporary technical issues with the PACS/Fluency reporting system, reports are being signed by the in house radiologist without review as a courtesy to ensure prompt reporting. The interpreting r adiologist is fully responsible for the content of the report.
--- NOTE | 2020-02-09 11:46 | P.PN ---
Subjective Date of Service: 02/09/20 Patient had a large bowel movement which had blood in it today. GI bleeding scan is pending. Patient had an endoscopy a year ago which did not reveal any significant abnormalities except for some diverticulums. Patient is scheduled to get a nuclear medicine GI bleed scan. Awaiting results at this time and monitoring H&H closely which has continued is trending downward. Review of Systems 10-point ROS is otherwise unremarkable Physical Examination - Vital Signs Temperature: 98.2 F Blood Pressure: 128/60 Pulse: 59 Respirations: 16 Pulse Ox (%): 98 - Physical Exam General: Alert, In no apparent distress, Oriented x3 Respiratory: Clear to auscultation bilaterally, Normal air movement Cardiovascular: Regular rate/rhythm, Normal S1 S2, No murmurs Gastrointestinal: Normal bowel sounds, Soft and benign, Non-distended, No tenderness Musculoskeletal: No clubbing, No swelling, No tenderness Neurological: Sensation intact, Cranial nerves 3-12 intact - Studies Medications List Reviewed: Yes Assessment & Plan - Problems (Diagnosis) (1) Lower GI bleeding Current Visit: Yes Status: Acute (2) Coronary arteriosclerosis Current Visit: No Status: Acute (3) Diabetes mellitus Current Visit: No Status: Acute (4) History of - hypertension Current Visit: No Status: Acute (5) Hyperlipidemia Current Visit: No Status: Acute (6) Mitral valvuloplasty Current Visit: No Status: Acute - Plan Plan: 1. Continue with IV hydration and PPI drip 2. Continue with IV antibiotics 3. Continue with pain control 4. NPO 5. GI consultation 6. Serial H&H, and we will monitor LFTs and lipase along with electrolytes. 7. GI and DVT prophylaxis Discharge Plan: Home Plan to discharge in: Greater than 2 days - Advance Directives Does patient have a Living Will: No Does patient have a Durable POA for Healthcare: No - Code Status/Comfort Care Code Status Assessed: Yes Code Status: Full Code Critical Care: No Time Spent Managing PTS Care (In Minutes): 35
--- NOTE | 2020-02-09 11:59 | RAD REPORT ---
EXAM DESCRIPTION: NM - GI Blood Loss Imaging - 02/09/2020 9:22 am CLINICAL HISTORY: Gastrointestinal bleeding COMPARISON: None. TECHNIQUE: The patient was administered 23.5 millicuries technetium labeled red blood cells. Dynamic images of the abdomen and pelvis were obtained for 60 minutes FINDINGS: No abnormal radiotracer activity is seen within the bowel. No abnormality displayed IMPRESSION: No evidence of active gastrointestinal bleeding during the examination
[2020-02-09] MEDS: NACHLORIDE 0.45% 1,000 ML IV SCH (13:00)
[2020-02-09] MEDS: ROSUVASTATIN 10 MG TAB PO SCH (20:03)
[2020-02-10] MEDS: NACHLORIDE 0.45% 1,000 ML IV SCH ×2 (00:53→15:40)
[2020-02-10 04:11] LABS: Absolute Lymphocytes (CBC) 1.1 K/uL (0.7-4.9); Basophils % 0.8 % (0-1.3); Hematocrit 22.3 % (36.0-45.0); Lymphocytes % 29.6 % (15.3-44.8); MPV 7.6 fL (7.6-11.3); RBC Red Blood Cell Count 2.31 M/uL (3.86-4.86)
[2020-02-10 04:54] LABS: Albumin 2.2 g/dL (3.4-5.0); Bilirubin Total 0.2 mg/dL (0.2-1.0); Ferritin 12.5 ng/mL (8-388); Folic Acid, (Folate) 7.2 ng/mL (3.1-17.5); Potassium 3.4 mmol/L (3.5-5.1); Protein, Total 4.6 g/dL (6.4-8.2)
[2020-02-10] MEDS: METRONIDAZOLE 500mg IVPB 500 MG/100 ML BAG IV SCH ×3 (05:01→23:22)
[2020-02-10] MEDS: INSULIN -REGULAR HUMAN 50 UNIT/0.5 ML ML SQ SCH ×4 (07:30→21:00)
[2020-02-10] MEDS ORDERED: POTASSIUM CL SA 10 MEQ TAB PO ONE (08:00)
[2020-02-10] MEDS: METOPROLOL TAR 50 MG TAB PO SCH ×2 (08:43→22:00)
[2020-02-10] MEDS: PANTOPRAZOLE 40 MG INJ IVP SCH ×2 (08:44→22:05)
[2020-02-10] MEDS: CIPROFLOXACIN 400mg IV 400 MG/200 ML BAG IV SCH ×2 (08:44→21:00)
[2020-02-10] MEDS ORDERED: NA CHLORIDE 0.9% 250 ML ONE (15:00)
[2020-02-10] MEDS ORDERED: FUROSEMIDE 20 MG/ 2ML VIAL IV SCH (17:00)
[2020-02-10] MEDS: ROSUVASTATIN 10 MG TAB PO SCH (22:01)
[2020-02-11 00:24] LABS: Hematocrit 30.9 % (36.0-45.0)
[2020-02-11] MEDS: METRONIDAZOLE 500mg IVPB 500 MG/100 ML BAG IV SCH ×2 (05:35→13:01)
[2020-02-11 06:16] LABS: Absolute Lymphocytes (CBC) 1.1 K/uL (0.7-4.9); Hematocrit 29.6 % (36.0-45.0); Lymphocytes % 25.5 % (15.3-44.8); MPV 7.2 fL (7.6-11.3); RBC Red Blood Cell Count 3.16 M/uL (3.86-4.86)
[2020-02-11] MEDS: INSULIN -REGULAR HUMAN 50 UNIT/0.5 ML ML SQ SCH ×2 (07:30→11:30)
--- NOTE | 2020-02-11 08:09 | P.PN ---
Subjective Date of Service: 02/10/20 Patient clinically doing well. Hemoglobin decreased today. Will go ahead and give a couple units of packed red blood cells. Anticipate discharge in the next 24-48 hr. Review of Systems 10-point ROS is otherwise unremarkable Physical Examination - Vital Signs Temperature: 98.2 F Blood Pressure: 128/60 Pulse: 59 Respirations: 16 Pulse Ox (%): 98 - Physical Exam General: Alert, In no apparent distress, Oriented x3 Respiratory: Clear to auscultation bilaterally, Normal air movement Cardiovascular: Regular rate/rhythm, Normal S1 S2, No murmurs Gastrointestinal: Normal bowel sounds, Soft and benign, Non-distended, No tenderness Musculoskeletal: No clubbing, No swelling, No tenderness Neurological: Sensation intact, Cranial nerves 3-12 intact - Studies Medications List Reviewed: Yes Assessment & Plan - Problems (Diagnosis) (1) Lower GI bleeding Current Visit: Yes Status: Acute (2) Coronary arteriosclerosis Current Visit: No Status: Acute (3) Diabetes mellitus Current Visit: No Status: Acute (4) History of - hypertension Current Visit: No Status: Acute (5) Hyperlipidemia Current Visit: No Status: Acute (6) Mitral valvuloplasty Current Visit: No Status: Acute - Plan Plan: Continue with plan of care as mentioned below 1. Transfuse 2 units of packed red blood cells 2. Continue with IV antibiotics 3. Continue with pain control 4. Diet as tolerated 5. GI consultation appreciated; they recommended outpatient follow-up and monitoring H&H closely 6. Continue to monitor labs closely 7. GI and DVT prophylaxis Discharge Plan: Home Plan to discharge in: Greater than 2 days - Advance Directives Does patient have a Living Will: No Does patient have a Durable POA for Healthcare: No - Code Status/Comfort Care Code Status: Full Code Critical Care: No Time Spent Managing PTS Care (In Minutes): 35
[2020-02-11] MEDS ORDERED: CYANOCOBALAMIN 1000MCG/ML INJ IM ONE (08:10)
[2020-02-11 08:18] LABS: Blood Morphology Comment NOT SEEN (NOT SEEN); Platelet Estimate DECR; White Blood Cell Scan OK (OK)
[2020-02-11] MEDS: PANTOPRAZOLE 40 MG INJ IVP SCH (08:48)
[2020-02-11] MEDS: METOPROLOL TAR 50 MG TAB PO SCH (08:49)
[2020-02-11] MEDS: CIPROFLOXACIN 400mg IV 400 MG/200 ML BAG IV SCH (08:49)
--- NOTE | 2020-02-11 11:46 | P.DS ---
Discharge Date: 02/11/20 Primary Care Provider: Dr. Rebolledo Disposition: ROUTINE DISCHARGE Discharge Condition: GOOD Reason for Admission: LGIB Consultations: Gastroenterology - Problems (1) Lower GI bleeding Current Visit: Yes Status: Acute (2) Coronary arteriosclerosis Current Visit: No Status: Acute (3) Diabetes mellitus Current Visit: No Status: Acute (4) History of - hypertension Current Visit: No Status: Acute (5) Hyperlipidemia Current Visit: No Status: Acute (6) Mitral valvuloplasty Current Visit: No Status: Acute Brief History of Present Illness: Patient is an 79-year-old female came to the hospital with anemia that was felt like it was secondary to GI bleeding. Patient was admitted to the hospital and given a blood transfusion. GI was consulted for evaluation. Patient was given platelets. Patient was also given a few units of blood transfusion and was admitted to the hospital for further evaluation. Hospital Course: Patient's hemoglobin has stabilized. Patient was given additional 2 units of packed red blood cells. She is clinically feeling much better. She has no complaints and she is not a very good mood. She is wanting to go home so will discharge her and have her follow with Gastroenterology in 2 weeks. Return to the emergency room she notices any bleeding or any weakness. At this time she also needs vitamin B12 because she was very deficient and she was iron deficient so we will supplement this as well. At this time will continue with close monitoring as an outpatient. Vital Signs/Physical Exam: Temp Pulse Resp BP Pulse Ox 98.2 F 60 16 136/64 98 02/11/20 08:08 02/11/20 08:49 02/11/20 08:08 02/11/20 08:49 02/11/20 08:08 General: Alert, In no apparent distress, Oriented x3 Laboratory Data at Discharge: WBC 4.2 K/uL (4.3-10.9) L 02/11/20 06:00 Hgb 10.4 g/dL (12.0-15.0) L 02/11/20 06:00 Hct 29.6 % (36.0-45.0) L 02/11/20 06:00 Plt Count 94 K/uL (152-406) L 02/11/20 06:00 PT 11.8 SECONDS (9.5-12.5) 02/04/20 19:38 INR 1.00 02/04/20 19:38 APTT 23.9 SECONDS (24.3-36.9) L 02/04/20 19:38 Sodium 140 mmol/L (136-145) 02/10/20 03:45 Potassium 3.7 mmol/L (3.5-5.1) 02/10/20 12:07 BUN 10 mg/dL (7-18) 02/10/20 03:45 Creatinine 0.75 mg/dL (0.55-1.3) 02/10/20 03:45 Glucose 114 mg/dL (74-106) H 02/10/20 03:45 Magnesium 2.0 mg/dL (1.8-2.4) 02/08/20 06:15 Total Bilirubin 0.2 mg/dL (0.2-1.0) 02/10/20 03:45 AST 18 U/L (15-37) 02/10/20 03:45 ALT 13 U/L (12-78) 02/10/20 03:45 Alkaline Phosphatase 66 U/L (45-117) 02/10/20 03:45 Lipase 50 U/L (73-393) L 02/04/20 19:38 Home Medications: Clopidogrel Bisulfate [Plavix] 75 mg PO DAILY 07/28/11 Glyburide [Diabeta] 1.25 mg PO DAILY 05/21/14 Metoprolol Tartrate [Lopressor] 100 mg PO DAILY 05/21/14 Rosuvastatin [Crestor*] 5 mg PO BEDTIME 05/21/14 Argin/Glut/Cahmb/Collag/Mv-Min [Edwin Packet] 1 each PO Q12H #60 powd.pack 02/11/20 Cyanocobalamin/Cobamamide [Vitamin B-12 5,000 Mcg Tab Sl] 1 each SL DAILY #30 tab.subl 02/11/20 Ferrous Gluconate 324 mg PO BID #60 tablet 02/11/20 Lactose-Reduced Food [Ensure Active High Protein] 414 ml PO TID #90 liquid 02/11/20 Metoprolol Tartrate [Lopressor*] 50 mg PO BID #60 tab 02/11/20 Pantoprazole [Protonix Tab] 40 mg PO Q12HR #60 tab 02/11/20 Potassium Chloride [K-Dur] 10 meq PO DAILY #15 tab.er.prt 02/11/20 New Medications: Lactose-Reduced Food [Ensure Active High Protein] 414 ml PO TID #90 liquid Ferrous Gluconate 324 mg PO BID #60 tablet Argin/Glut/Cahmb/Collag/Mv-Min [Edwin Packet] 1 each PO Q12H #60 powd.pack Potassium Chloride [K-Dur] 10 meq PO DAILY #15 tab.er.prt Metoprolol Tartrate [Lopressor*] 50 mg PO BID #60 tab Pantoprazole [Protonix Tab] 40 mg PO Q12HR #60 tab Cyanocobalamin/Cobamamide [Vitamin B-12 5,000 Mcg Tab Sl] 1 each SL DAILY #30 tab.subl Patient Discharge Instructions: OK TO DC IV AND DC HOME. FOLLOW-UP WITH PRIMARY CARE PROVIDER IN 1-2 WEEKS. FOLLOW-UP WITH ORTHOPEDIC SHOE FITTER IN 1-2 WEEKS. FOLLOW-UP WITH ORACLE ANALYST IN 1-2 WEEKS. RETURN TO THE ER IF SYMPTOMS WORSEN. CALL or TEXT DR. GOMEZ AT [phone] IF ANY QUESTIONS REGARDING HOSPITAL STAY. PLEASE CALL THE FLOOR AT [phone] IF ANY MEDICATION OR NURSING QUESTIONS. Diet: AHA (1800 KILOCALORIE ADA DIET) Activity: Fall precautions Followup: Carson Hurtado MD [ACTIVE - CAN ADMIT] - 1-2 Weeks (GI doctor- Call to schedule an appointment ) Garcia Eduardo MD [Primary Care Provider] - 1-2 Weeks (PCP- call to schedule an appointment ) Time spent managing pt's care (in minutes): 35
[2020-02-11 12:02] VITALS: O2SAT 99
[2020-02-11 18:01] VITALS: BP 161/70; TEMP 98.1
== END 2020-02-11 17:15 | disposition home or self-care (01) | DRG 378 ==
LOC: ER 15:16 → ERHOLD 21:20 → 4TH 02-05 10:53 → 2ND 02-09 15:18
PROVIDERS: ADMIT Family Medicine; ATTEND Hospitalist
PROC: 30233N1 Transfusion of Nonautologous Red Blood Cells into Peripheral Vein, Percutaneous Approach (ICD-10-PCS; principal; 2020-02-05)
PROC: 30233R1 Transfusion of Nonautologous Platelets into Peripheral Vein, Percutaneous Approach (ICD-10-PCS; 2020-02-06)
PROC: 05HY33Z Insertion of Infusion Device into Upper Vein, Percutaneous Approach (ICD-10-PCS; 2020-02-09)
DX: K57.91 Diverticulosis of intestine, part unspecified, without perforation or abscess with bleeding (principal); D62 Acute posthemorrhagic anemia; N17.9 Acute kidney failure, unspecified; E11.9 Type 2 diabetes mellitus without complications; E78.5 Hyperlipidemia, unspecified; K21.9 Gastro-esophageal reflux disease without esophagitis; I25.10 Atherosclerotic heart disease of native coronary artery without angina pectoris; I05.9 Rheumatic mitral valve disease, unspecified; E86.0 Dehydration; I10 Essential (primary) hypertension; Z88.0 Allergy status to penicillin; Z79.02 Long term (current) use of antithrombotics/antiplatelets; Z79.84 Long term (current) use of oral hypoglycemic drugs; Z79.899 Other long term (current) drug therapy; Z95.2 Presence of prosthetic heart valve; Z90.710 Acquired absence of both cervix and uterus; Z90.49 Acquired absence of other specified parts of digestive tract; Z20.828 Contact with and (suspected) exposure to other viral communicable diseases
CPT/HCPCS: 36415; 36430; 36569; 71045; 74177; 78278; 80048; 80053; 80076; 82565; 82607; 82728; 82746; 82947; 83036; 83540; 83690; 83735; 84132; 84439; 84443; 85014; 85018; 85025; 85044; 85610; 85730; 86850; 86900; 86901; 99284; A9560; C9113; J0744; J1644; J1940; J3420; J3480; J7030; J7040; J7050; P9016; P9035; Q9967; U0002

== ENCOUNTER 2020-02-15 16:16 | Emergency (ER) | payer OTHER ==
--- OUTSIDE RECORDS SUMMARY | 2020-02-15 16:18 | XMS REPORT | Continuity of Care Document ---
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 Clinician (SIG) Name Name Plavix Yes PO, 0 Memoria 1-28 Refill(s) l 21:43: Hammad 00 Crestor 2020-0 Yes PO, Daily, Spencer krishna 1-28 0 l 21:43: Refill(s) [place] 00 glimepiride 2019-0 Yes PO, Daily, Memoria 1-28 0 l 21:43: Refill(s) [place] 00 metoprolol 2019-0 Yes BID, 0 Memor ia tartrate 128 Refill(s) l 21:43: [place] 00 Vital Signs Vital Name Observation Time Observation Value Comments Source Systolic (mm Hg) 2019-12-12 16:54:00 Spencer rial Hammad Diastolic (mm Hg) 2019-12-12 16:54:00 Mem orial [place] Heart Rate 2019-12-12 16:54:00 [facility] Respitory Rate 2019-12-12 16:54:00 Memori al [place] Height 2019-12-12 16:54:00 152.4 cm [facility] Weight 2019-12-12 16:54:00 [facility] BMI Calculated 2019-12-12 16:54:00 Memori al [place] Systolic (mm Hg) 2019-04-22 21:42:00 Spencer rial [place] Diastolic (mm Hg) 2019-04-22 21:42:00 Mem orial [facility] Heart Rate 2019-04-22 21:42:00 [facility] Respitory Rate 2019-04-22 21:42:00 Memori al [place] Height 2019-04-22 21:42:00 157.48 cm [facility] Weight 2019-04-22 21:42:00 [facility] BMI Calculated 2019-04-22 21:42:00 Memori al Hammad Procedures Procedure Date / Time Performed Performing Clinician [facility] Appendectomy [facility] Encounters Start End Encounter Admission Attending Care Care Encounter Source Date/Time Date/Time Type Type Clinicians Facility Department ID 2019-12-12 2019-12-12 Outpatient ANDREE Velez [id number] 11:45:00 23:59:59 Robin Roberson 2019-12-10 2019-12-11 Outpatient ANDREE CANDELARIO [id number] 09:57:19 23:59:59 00 2019-06-24 2019-06-24 Outpatient ANDREE VelezMISCHER [id number] 15:45:00 15:45:00 Robin Da 2019-04-22 2019-04-22 [facility] [id number] 14:45:00 23:59:59 Robin Da Results This patient has no known results.
[2020-02-15 17:09] LABS: Absolute Lymphocytes (CBC) 1.1 K/uL (0.7-4.9); Hematocrit 32.4 % (36.0-45.0); RBC Red Blood Cell Count 3.44 M/uL (3.86-4.86)
[2020-02-15 17:12] LABS: Protime INR 1.03
[2020-02-15 17:26] LABS: Albumin 2.7 g/dL (3.4-5.0); Bilirubin Direct 0.2 mg/dL (0-0.2); Bilirubin Total 0.4 mg/dL (0.2-1.0); Potassium 3.8 mmol/L (3.5-5.1); Protein, Total 6.3 g/dL (6.4-8.2)
[2020-02-15] MEDS ORDERED: NA CHLORIDE 0.9% 500 ML ONE (17:43)
--- NOTE | 2020-02-15 17:49 | EDPHYS ---
Physician Documentation [facility] Name: Charlene Stokes Age: 79 yrs Sex: Female : 1940 Arrival Date: 02/15/2020 Time: 16:17 Bed 17 Private MD: ED Physician Ag Gonzalez HPI: 02/14 16:40 This 79 yrs old Female presents to ER via Ambulatory with complaints of rn Bloody Stools. 16:40 The patient presents to the emergency department with rectal bleeding, a small amount, rn bright red blood with bowel movement, with multiple such episodes. 16:40 Onset: The symptoms/episode began/occurred yesterday. Abdominal pain: none is rn appreciated. Modifying factors: The symptoms are alleviated by nothing, the symptoms are aggravated by bowel movement. Associated signs and symptoms: Pertinent positives: + generalized weakness, Pertinent negatives: chest pain, constipation, diarrhea, fever, shortness of breath. Severity of symptoms: At their worst the symptoms were mild in the emergency department the symptoms are unchanged. The patient has experienced a previous episode. The patient has been recently been admitted at [facility]. Recently admitted for GI bleed, no intervention done, plavix discontinued, transfused to hemoglobin 10, and discharged 5 days ago. Tucker snot been able to f/u with GI. Reports yesterday began bleeding again, maroon blood, only with bowel movements, mixed with stool, assoc with generalized weakness. Son reports fell today, no trauma or focal pain, but too weak to get up off floor on her own. . Historical: - Allergies: 16:27 PENICILLINS; sv - PMHx: 16:27 CAD; Diabetes - NIDDM; Hypertension; sv - PSHx: 16:27 Hysterectomy; Appendectomy; Cholecystectomy; heart valve replacement; sv - Immunization history:: Adult Immunizations up to date. - Social history:: Smoking status: . - Family history:: not pertinent. - Hospitalizations: : No recent hospitalization is reported. ROS: 16:40 Constitutional: Negative for fever, chills, and weight loss, Eyes: Negative for injury, rn pain, redness, and discharge, Neck: Negative for injury, pain, and swelling, Cardiovascular: Negative for chest pain, palpitations, and edema, Respiratory: Negative for shortness of breath, cough, wheezing, and pleuritic chest pain, Abdomen/GI: Negative for abdominal pain, nausea, vomiting, diarrhea, and constipation, Back: Negative for injury and pain, : Negative for injury, bleeding, discharge, and swelling, MS/Extremity: Negative for injury and deformity, Skin: Negative for injury, rash, and discoloration, Neuro: Negative for headache, numbness, tingling, and seizure. Exam: 16:40 Constitutional: This is a well developed, well nourished patient who is awake, alert, rn and in no acute distress. Head/Face: Normocephalic, atraumatic. ENT: MMM Cardiovascular: Regular rate and rhythm. No pulse deficits. Respiratory: No increased work of breathing, no retractions or nasal flaring. Abdomen/GI: soft, non-tender Skin: Warm, dry MS/ Extremity: Pulses equal, no cyanosis. Neurovascular intact. Full, normal range of motion. Equal circumference. Neuro: Awake and alert, GCS 15, oriented to person, place, time, and situation. Cranial nerves II-XII grossly intact. Motor strength 5/5 in all extremities. Sensory grossly intact. Vital Signs: 16:27 BP 151 / 88; Pulse 78; Resp 16; Temp 98.2; Pulse Ox 98% ; sv 17:00 BP 132 / 50; Pulse 60; Resp 16; ll1 18:00 BP 134 / 53; Pulse 59; Resp 17; Pulse Ox 98% ; ll1 MDM: 16:23 Patient medically screened. rn 17:44 Differential diagnosis: diverticulosis, upper GI bleed, AVM. Data reviewed: vital rn signs, nurses notes, old medical records, lab test result(s), and as a result, I will discharge patient. Counseling: I had a detailed discussion with the patient and/or guardian regarding: the historical points, exam findings, and any diagnostic results supporting the discharge/admit diagnosis, lab results, the need for outpatient follow up, to return to the emergency department if symptoms worsen or persist or if there are any questions or concerns that arise at home. Special discussion: I discussed with the patient/guardian in detail that at this point there is no indication for admission to the hospital. It is understood, however, that if the symptoms persist or worsen the patient needs to return immediately for re-evaluation. Based on the history and exam findings, there is no indication for further emergent testing or inpatient evaluation. I discussed with the patient/guardian the need to see the rehabilitation technician for further evaluation of the symptoms. ED course: Hemoglobin 11.2. Spoke at length with patient and family member. Patient wants to go home, reports weakness since previous admission, never felt great afterwards, and states this episode of bleeding "nothing" compared to when she was hospitalized. Is no longer taking plavix, stable vitals, and no drop in hemoglobin since hospitalization. No GI here, so admission would necessitate transfer to [facility], patient does not want to go to [facility]. Long discussion about risks/benefits, and return precautions, wants trial at home for spont resolution. States will come back if worsens. Rpeat abd exam without tenderness or swelling, CT abdomen cancelled. Is going to call Dr. Birmingham tomorrow. . 02/14 16:38 Order name: Basic Metabolic Panel; Complete Time: 17:49 rn 02/14 16:38 Order name: CBC with Diff; Complete Time: 17:13 rn 02/14 16:38 Order name: Hepatic Function; Complete Time: 17:49 rn 02/14 16:38 Order name: Lipase; Complete Time: 17:49 rn 02/14 16:38 Order name: PT-INR; Complete Time: 17:13 rn 02/14 16:38 Order name: Ptt, Activated; Complete Time: 17:13 rn 02/14 16:38 Order name: IV Saline Lock; Complete Time: 16:59 rn 02/14 16:38 Order name: Labs collected and sent; Complete Time: 16:59 rn Administered Medications: 17:36 Drug: NS 0.9% 500 ml Route: IV; Rate: bolus; Site: left antecubital; ll1 18:15 Follow up: Response: No adverse reaction; RASS: Alert and Calm (0); IV Status: ll1 Completed infusion; IV Intake: 500ml Disposition: 02/15/20 17:48 Discharged to Home. Impression: Diverticulosis of large intestine without perforation or abscess with bleeding. - Condition is Stable. - Discharge Instructions: Diverticulosis, Gastrointestinal Bleeding. - Medication Reconciliation Form, Thank You Letter, Antibiotic Education, Prescription Opioid Use form. - Follow up: Da Birmingham MD; When: As needed; Reason: Recheck today's complaints, Re-evaluation by your physician. - Problem is an ongoing problem. - Symptoms have improved. Signatures: Dispatcher [employer] [facility] Funmi Leal RN PAU Ag Gonzalez MD MD rn Lewis, Lynsay, RN RN ll1 Corrections: (The following items were deleted from the chart) 17:46 16:39 Abdomen Pelvis W Con+CT.RAD.BRZ ordered. [facility] 17:47 17:44 ED course: Hemoglobin 11.2. Spoke at length with patient and family member. rn Patient wants to go home, reports weakness since previous admission, never felt great afterwards, and states this episode of bleeding "nothing" compared to when she was hospitalized. Is no longer taking plavix, stable vitals, and no drop in hemoglobin since hospitalization. No GI here, so admission would necessitate transfer to [facility], patient does not want to go to [facility]. Long discussion about risks/benefits, and return precautions, wants trial at home for spont resolution. States will come back if worsens. Rpeat abd exam without tenderness or swelling, CT abdomen cancelled. . rn 18:15 17:48 02/15/2020 17:48 Discharged to Home. Impression: Diverticulosis of large ll1 intestine without perforation or abscess with bleeding. Condition is Stable. Forms are Medication Reconciliation Form, Thank You Letter, Antibiotic Education, Prescription Opioid Use. Follow up: Da Birmingham; When: As needed; Reason: Recheck today's complaints, Re-evaluation by your physician. Problem is an ongoing problem. Symptoms have improved. rn
--- NOTE | 2020-02-15 17:49 | ER ---
Nurse's Notes [facility] Name: Charlene Stokes Age: 79 yrs Sex: Female : 1940 Arrival Date: 02/15/2020 Time: 16:17 Bed 17 Private MD: Diagnosis: Diverticulosis of large intestine without perforation or abscess with bleeding Presentation: 02/14 16:26 Chief complaint: Patient states: rectal bleeding started yesterday. Was recently seen sv here and admitted for GI bleed and diverticulosis and discharged a week ago. Got a referral to Dr Birmingham from her PCP but has not been able to f/u yet. Coronavirus screen: Client denies travel out of the [place] in the last 14 days. At this time, the client does not indicate any symptoms associated with coronavirus-19. Ebola Screen: No symptoms or risks identified at this time. Risk Assessment: Do you want to hurt yourself or someone else? Patient reports no desire to harm self or others. Onset of symptoms was February 14, 2020. 16:26 Method Of Arrival: Ambulatory 16:26 Acuity: KELLE 3 16:27 Initial Sepsis Screen: Does the patient meet any 2 criteria? No. Patient's initial sv sepsis screen is negative. Does the patient have a suspected source of infection? No. Patient's initial sepsis screen is negative. Historical: - Allergies: 16:27 PENICILLINS; sv - PMHx: 16:27 CAD; Diabetes - NIDDM; Hypertension; sv - PSHx: 16:27 Hysterectomy; Appendectomy; Cholecystectomy; heart valve replacement; sv - Immunization history:: Adult Immunizations up to date. - Social history:: Smoking status: . - Family history:: not pertinent. - Hospitalizations: : No recent hospitalization is reported. Assessment: 16:35 General: Appears in no apparent distress. Behavior is calm, cooperative, appropriate ll1 for age. Pain: Denies pain. Neuro: No deficits noted. Cardiovascular: No deficits noted. Respiratory: No deficits noted. GI: Abdomen is flat, Bowel sounds present X 4 quads. Abd is soft and non tender X 4 quads. Reports bloody stool. 17:35 Reassessment: Patient and/or family updated on plan of care and expected duration. Pain ll1 level reassessed. Patient is alert, oriented x 3, equal unlabored respirations, skin warm/dry/pink. Vital Signs: 16:27 BP 151 / 88; Pulse 78; Resp 16; Temp 98.2; Pulse Ox 98% ; sv 17:00 BP 132 / 50; Pulse 60; Resp 16; ll1 18:00 BP 134 / 53; Pulse 59; Resp 17; Pulse Ox 98% ; ll1 ED Course: 16:17 Patient arrived in ED. ds1 16:21 Ferny Tan RN is Primary Nurse. ll1 16:23 Ag Gonzalez MD is Attending Physician. rn 16:27 Triage completed. sv 16:27 Arm band placed on. sv 16:45 Inserted saline lock: 20 gauge in left antecubital area, using aseptic technique. Blood ll1 collected. 17:48 Da Birmingham MD is Referral Physician. rn 18:13 No provider procedures requiring assistance completed. IV discontinued, intact, ll1 bleeding controlled, No redness/swelling at site. Pressure dressing applied. Administered Medications: 17:36 Drug: NS 0.9% 500 ml Route: IV; Rate: bolus; Site: left antecubital; ll1 18:15 Follow up: Response: No adverse reaction; RASS: Alert and Calm (0); IV Status: ll1 Completed infusion; IV Intake: 500ml Intake: 18:15 IV: 500ml; Total: 500ml. ll1 Outcome: 17:48 Discharge ordered by . rn 18:15 Patient left the ED. ll1 Signatures: Funmi Leal RN RN sv Sanford, Demi ds1 Ag Gonzalez MD MD rn Lewis, Lynsay, RN RN ll1
[2020-02-15 23:15] VITALS: TEMP 98.2; O2SAT 98
[2020-02-15 23:22] VITALS: BP 134/53
== END 2020-02-15 18:15 | disposition home or self-care (01) ==
LOC: ER 16:16
DX: K57.31 Diverticulosis of large intestine without perforation or abscess with bleeding (principal); I10 Essential (primary) hypertension; Z95.4 Presence of other heart-valve replacement; Z88.0 Allergy status to penicillin
CPT/HCPCS: 85025; 80048; 36415; 85610; 80076; 85730; 83690; 96360; 99283; J7040

== ENCOUNTER 2020-02-26 20:06 | Emergency (ER) | payer OTHER ==
[2011-07-31 16:17] VITALS: BP 96/56
--- OUTSIDE RECORDS SUMMARY | 2020-02-26 20:08 | XMS REPORT | Continuity of Care Document ---
:1940 Author Organization [employer] Care Team Providers Name Role Phone [employer] Unavailable Un available Problems Problem Status Onset [...] Keith ro Diastolic (mm Hg) 77 [place] [facility] [place] Heart Rate 54 04/22/[place] [facility] Respitory Rate 16 04/22/2019 [facility] Height 157.48 cm 04/22/2019 [facility] Weight 73.636 04/22/2019 [facility] BMI Calculated 29.69 04/22/[place] [facility] En[place]ters Location Location Encounter Encounter Reason Attending ADM DC Stat us Source Details Type Number For Provider Date Date Visit Outpatient [id number] Robin 04/22 Active [facility] Krell /2020 [facility] Outpatient [id number] Robin 04/22 04/23 [facility] [place]rell /2019 Neuro Edgar Outpatient [id number] Robin 06/23 Active [facility] Kre /2020 Brohman MNA Ambulatory [id number] Robin 06/23 06/23 [facility] Pre[place]rell /2019 Neuro Edgar MNA Outside [id number] 12/09 12/11 [facility] Neurology Medical /2019 Neuro Edgar Records Outpatient [id number] Robin 12/11 Active [facility] Krell /2019 [facility] MNA Outpatient [id number] Robin 12/11 12/12 [facility] [place]rell /2019 Neuro Edgar Outpatient [id number] Robin 09/10 Active [facility] Kre Brohman Procedures Procedure Code Date Perfomer Comments Source Appendectomy [id number] [facility] [place] [facility] [place] Heart valve [id number] [facility] [facility] replacement Hysterectomy [id number] [facility] [place] [facility] Assessment and Plan No Data Provided for This Section Plan of Care No Data Provided for This Section Social History Social History Date Source Social History [facility]School 1, 2 Smoking Status Unknown if ever smoked; 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
--- OUTSIDE RECORDS SUMMARY | 2020-02-26 20:08 | XMS REPORT | Continuity of Care Document ---
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[place] occlusion carotid (disorder) artery occlusion (disorder) Active [...] PO, 0 Memoria 1-28 Refill(s) l 21:43: [place] 00 Crestor 2020-0 Yes PO, Daily, Spencer krishna 1-28 0 l 21:43: Refill(s) [place] 00 glimepiride 2019-0 Yes PO, Daily, Memoria 1-28 0 l 21:43: Refill(s) [place] 00 metoprolol 2019-0 Yes BID, 0 Memor ia tartrate 128 Refill(s) l 21:43: [place] 00 Vital Signs Vital Name Observation Time Observation Value Comments Source Systolic (mm Hg) 2019-12-12 16:54:00 Spencer rial Hammad Diastolic (mm Hg) 2019-12-12 16:54:00 Mem orial [place] Heart Rate 2019-12-12 16:54:00 [facility] Respitory Rate 2019-12-12 16:54:00 Memori al Hammad Height 2019-12-12 16:54:00 152.4 cm [facility] [place] Weight 2019-12-12 16:54:00 [facility] BMI Calculated 2019-12-12 16:54:00 Memori al [place] Systolic (mm Hg) 2019-04-22 21:42:00 Spencer rial Hammad Diastolic (mm Hg) 2019-04-22 21:42:00 Mem orial Hammad Heart Rate 2019-04-22 21:42:00 [facility] Respitory Rate 2019-04-22 21:42:00 Memori al [place] Height 2019-04-22 21:42:00 157.48 cm [facility] [place] Weight 2019-04-22 21:42:00 [facility] BMI Calculated 2019-04-22 21:42:00 Memori al Hammad Procedures Procedure Date / Time Performed Performing Clinician [facility] e Appendectomy [facility] [place] Heart [facility] Encounters Start End Encounter Admission Attending Care Care Encounter Source Date/Time Date/Time Type Type Clinicians Facility Department ID 2019-12-12 2019-12-12 Outpatient ANDREE Velez [id number] 11:45:00 23:59:59 Robin Roberson 2019-12-10 2019-12-11 Outpatient ANDREE CANDELARIO [id number] 09:57:19 23:59:59 00 2019-06-24 2019-06-24 Outpatient ANDREE VelezMISCHER [id number] 15:45:00 15:45:00 Robin Da 2019-04-22 2019-04-22 [id number] 14:45:00 23:59:59 Robin Da Results This patient has no known results.
--- NOTE | 2020-02-26 20:50 | RAD REPORT ---
EXAM DESCRIPTION: CT - Ct Stroke Brain Wo Cont - 02/26/2020 8:41 pm CLINICAL HISTORY: Right arm weakness/numbness COMPARISON: none TECHNIQUE: Computed axial tomography of the head was obtained. All CT scans are performed using dose optimization technique as appropriate and may include automated exposure control or mA/KV adjustment according to patient size. FINDINGS: 22 millimeter bleed left thalamus The ventricles are normal in caliber. No extra-axial fluid collection is noted. Moderate low-density within periventricular, deep and subcortical white matter likely ischemic change s secondary to small vessel disease Fluid within the sinuses/ mastoids is not seen. IMPRESSION: 22 millimeter bleed left thalamus Dr. Garland of the emergency room was notified at 8:45 p.m. on February 26, 2020
[2020-02-26 21:08] LABS: Absolute Lymphocytes (CBC) 0.5 K/uL (0.7-4.9); Basophils % 0.4 % (0-1.3); Hematocrit 35.8 % (36.0-45.0); Lymphocytes % 7.9 % (15.3-44.8); MPV 8.1 fL (7.6-11.3)
[2020-02-26] MEDS ORDERED: NA CHLORIDE 0.9% 1,000 ML ONE (21:26)
--- NOTE | 2020-02-26 21:42 | ER ---
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 this morning at 0630, everything was fine. When I get home, about 1800, she was just sitting on the cough, wouldn't respond to me and and she couldn't even recognize you. She's usually very sharp. But for last few days, she gets mildly confused here and there. She was here a week or 2 ago, diverticulitis and passing blood. Pt is lethargic in Triage. Oriented to none. Negative slurring Van Positive - R arm. 20:20 Coronavirus screen: Client denies travel out of the [place] in the last 14 days. At this ca1 time, the client does not indicate any symptoms associated with coronavirus-19. Ebola Screen: Patient negative for fever greater than or equal to 101.5 degrees Fahrenheit, and additional compatible Ebola Virus Disease symptoms Patient denies exposure to infectious person. Patient denies travel to an Ebola-affected area in the 21 days before illness onset. No symptoms or risks identified at this time. Initial Sepsis Screen: Does the patient meet any 2 criteria? No. Patient's initial sepsis screen is negative. Does the patient have a suspected source of infection? No. Patient's initial sepsis screen is negative. Risk Assessment: Do you want to hurt yourself or someone else? Patient reports no desire to harm self or others. Onset of symptoms was February 26, 2020. 20:20 Method Of Arrival: Wheelchair ca1 20:20 Acuity: KELLE 2 ca1 Historical: - Allergies: 20:27 PENICILLINS; ca1 - Home Meds: 21:19 Metoprolol Tartrate Oral [Active]; Glimepiride Oral [Active]; pantoprazole oral ll2 [Active]; - PMHx: 20:27 CAD; Hypertension; Diabetes - NIDDM; ca1 - PSHx: 20:27 Hysterectomy; Appendectomy; Cholecystectomy; heart valve replacement; ca1 - Immunization history:: Adult Immunizations up to date, Flu vaccine is up to date. - Social history:: Smoking status: Patient denies any tobacco usage or history of. - History obtained from: son. Screenin:58 Abuse screen: Denies threats or abuse. Nutritional screening: No deficits noted. ea Tuberculosis screening: No symptoms or risk factors identified. Fall Risk Mental Status- Overestimates/Forgets Limitations (15 pts.). 21:11 The patient is able to swallow own secretions with no drooling or need for suction. ll2 Patient tolerated one teaspoon of water. No drooling, immediate coughing, gurgling, or clearing of the throat was noted. The patient passed the bedside swallow screening. Oral medications may be given as ordered. Contact Physician for further diet orders. Assessment: 20:35 Reassessment: Pt seen by Dr. Garland. ca1 20:50 General: Appears in no apparent distress. Behavior is calm, cooperative. Pain: Denies ll2 pain. Neuro: Level of Consciousness is awake, Oriented to pt is rambling words nonsensical. . Cardiovascular: Patient's skin is warm and dry. Respiratory: Airway is patent Respiratory effort is even, unlabored, Respiratory pattern is regular, symmetrical. GI: No signs and/or symptoms were reported involving the gastrointestinal system. : No signs and/or symptoms were reported regarding the genitourinary system. EENT: No signs and/or symptoms were reported regarding the EENT system. Derm: Skin is intact, is healthy with good turgor, Skin is dry, Skin is pink, warm \T\ dry. Musculoskeletal: Circulation, motion, and sensation intact. Range of motion: limited in right side of the body. 21:38 Reassessment: Patient and/or family updated on plan of care and expected duration. Pain ll2 level reassessed. Patient is alert, oriented x 3, equal unlabored respirations, skin warm/dry/pink. son to bedside, pt is verbal but talking nonsensically. 21:46 Reassessment: report given to [employer] crew via phone. ll2 21:53 Reassessment: report given to PAU armendariz. ll2 22:00 Reassessment: pt left via stretcher with [employer] crew. ll2 Vital Signs: 20:20 BP 138 / 80; Pulse 103; Resp 18 S; Temp 96.9(TE); Pulse Ox 99% on R/A; Weight 72.57 kg ca1 (R); Height 5 ft. 0 in. (152.40 cm) (R); 20:56 BP 146 / 91; Pulse 99; Resp 16; Temp 98.2; Pulse Ox 98% on R/A; ll2 21:35 BP 134 / 64; Pulse 82; Resp 18; Pulse Ox 98% on R/A; ea 20:20 Body Mass Index 31.25 (72.57 kg, 152.40 cm) ca1 NIH Stroke Scale Scores: 21:11 NIHSS Score: 11 ll2 ED Course: 20:08 Patient arrived in ED. am2 20:08 Garcia Eduardo DO is Private Physician. am2 20:26 Triage completed. ca1 20:27 Lawrence Garland MD is Attending Physician. pkl 20:27 Arm band placed on right wrist. ca1 20:40 Ct Stroke Brain Wo Cont In Process Unspecified. EDMS 20:45 Stefany Garcia, PAU is Primary Nurse. ea 20:57 Inserted saline lock: 20 gauge in right forearm, using aseptic technique. Blood ea collected. Inserted saline lock: 22 gauge in right hand, using aseptic technique. 20:58 Initiated transfer at [facility] with Norma. tt3 21:05 Patient has correct armband on for positive identification. Bed in low position. Call ea light in reach. Side rails up X2. monitoring and evaluation advisor on. Pulse ox on. NIBP on. 21:20 [facility] called back with their physician to speak with Dr. Garland regarding the tt3 transfer request. 21:30 Stroke CXR 1 View In Process Unspecified. EDMS 21:38 Ligia Moreno, PAU is Primary Nurse. ll2 21:59 No provider procedures requiring assistance completed. Patient transferred, IV remains ll2 in place. Administered Medications: 21:14 Drug: NS 0.9% 1000 ml Route: IV; Rate: 100 ml/hr; Site: right forearm; ea Point of Care Testing: Blood Glucose: 20:59 Blood Glucose: 144 mg/dL; ll2 Ranges: Outcome: 21:41 ER care complete, transfer ordered by . pkl 21:59 Transferred by helicopter to [facility]. ll2 21:59 Condition: stable 21:59 Instructed on the need for transfer. 21:59 Patient left the ED. ll2 NIH Stroke Scale - NIH Stroke Score Date: 02/26/2020 Time: 21:11 Total Score = 11 1a. Level of Consciousness (LOC) - 0(Alert) 1b. Level of Consciousness (LOC) (Year \T\ Age) - 2(Neither) 1c. LOC Commands (Open \T\ Closes Eyes/Sheeter Helper) - 0(Both) 2. Best Gaze (Lateral Gaze Paresis) - 1(Partial gaze palsy) 3. Visual Field Loss - 1(Partial hemianopia) 4. Facial Palsy - 1(Minor Paralysis) 5a. Left Arm: Motor (10-second hold) - 0(No drift) 5b. Right Arm: Motor (10-second hold) - 1(Drift) 6a. Left Leg: Motor (5-second hold - always test supine) - 0(No drift) 6b. Right Leg: Motor (5-second hold - always test supine) - 1(Drift) 7. Limb Ataxia (finger/nose \T\ heel/tejeda - test with eyes open) - 0(Absent) 8. Sensory Loss (pinprick arms/legs/face) - 0(Normal) 9. Best Language: Aphasia (description/naming/reading) - 1(Mild to moderate aphasia) 10. Dysarthria (speech clarity - read or repeat words) - 2(Severe) 11. Extinction and Inattention (visual/tactile/auditory/spatial/personal) - 1(Present) Initials: ll2 Signatures: Dispatcher [employer] EDMS Lawrence Garland MD MD pkl Moreno, Amanda am2 Stefany Garcia RN RN ea Acob, Cheryl, RN RN ca1 Ligia Moreno RN RN ll2 Alvin Pedro tt3 Corrections: (The following items were deleted from the chart) 20:26 20:20 Chief complaint: ca1 ca1 20:26 20:20 BP 138 / 80; Pulse 103bpm; Resp 18bpm; Spontaneous; Pulse Ox 99% RA; Temp ca1 96.9F Temporal; 72.57 kg Reported; Height 5 ft. 0 in. Reported; BMI: 31.2; ca1 20:35 20:20 Chief complaint: Patient's son or daughter states: Son: When I leave this ca1 morning at 0630, everything was fine. When I get home, about 1800, she was just sitting on the cough, wouldn't respond to me and and she couldn't even recognize you. She's usually very sharp. But for last few days, she gets mildly confused here and there. She was here a week or 2 ago, diverticulitis and passing blood. Pt is lethargic in Triage. Oriented to none. Chief complaint: Patient's son or daughter states: Son: When I leave this morning at 0630, everything was fine. When I get home, about 1800, she was just sitting on the cough, wouldn't respond to me and and she couldn't even recognize you. She's usually very sharp. But for last few days, she gets mildly confused here and there. She was here a week or 2 ago, diverticulitis and passing blood. Pt is lethargic in Triage. Oriented to none. ca1 22:25 20:56 BP 146 / 91; Pulse 99bpm; Resp 16bpm; Pulse Ox 98% RA; Temp 96.9F; ll2 ll2
--- NOTE | 2020-02-26 21:42 | EDPHYS ---
Physician Documentation [facility] Name: Charlene Stokes Age: 79 yrs Sex: Female : 1940 Arrival Date: 02/26/2020 Time: 20:08 Bed 6 Private MD: Garcia Eduardo ED Physician Lawrence Garland HPI: 02/25 20:46 This 79 yrs old Female presents to ER via Wheelchair with complaints of pkl Altered Mental Status. 20:46 The patient's problem is reported as altered mental status, confused, difficulty pkl walking, due to weakness. Onset: The symptoms/episode began/occurred today. 20:47 Patient's son said she was last known well at 6.30 AM this morning. Patient's son said pkl he found her unable to talked and ambulate from the sofa at about 6 PM tonight. Historical: - Allergies: 20:27 PENICILLINS; ca1 - Home Meds: 21:19 Metoprolol Tartrate Oral [Active]; Glimepiride Oral [Active]; pantoprazole oral ll2 [Active]; - PMHx: 20:27 CAD; Hypertension; Diabetes - NIDDM; ca1 - PSHx: 20:27 Hysterectomy; Appendectomy; Cholecystectomy; heart valve replacement; ca1 - Immunization history:: Adult Immunizations up to date, Flu vaccine is up to date. - Social history:: Smoking status: Patient denies any tobacco usage or history of. - History obtained from: son. ROS: 20:47 Eyes: Negative for injury, pain, redness, and discharge, ENT: Negative for injury, pkl pain, and discharge, Neck: Negative for injury, pain, and swelling, Cardiovascular: Negative for chest pain, palpitations, and edema, Respiratory: Negative for shortness of breath, cough, wheezing, and pleuritic chest pain, Abdomen/GI: Negative for abdominal pain, nausea, vomiting, diarrhea, and constipation, Back: Negative for injury and pain, : Negative for injury, bleeding, discharge, and swelling, MS/Extremity: Negative for injury and deformity, Skin: Negative for injury, rash, and discoloration. 20:47 Neuro: Positive for altered mental status, speech changes, weakness. Exam: 20:56 Radiologist reports: 2.2 cm left thalamus bleed pkl 20:59 Head/Face: Normocephalic, atraumatic. Eyes: Pupils equal round and reactive to light, pkl extra-ocular motions intact. Lids and lashes normal. Conjunctiva and sclera are non-icteric and not injected. Cornea within normal limits. Periorbital areas with no swelling, redness, or edema. ENT: Nares patent. No nasal discharge, no septal abnormalities noted. Tympanic membranes are normal and external auditory canals are clear. Oropharynx with no redness, swelling, or masses, exudates, or evidence of obstruction, uvula midline. Mucous membranes moist. Neck: Trachea midline, no thyromegaly or masses palpated, and no cervical lymphadenopathy. Supple, full range of motion without nuchal rigidity, or vertebral point tenderness. No Meningismus. Chest/axilla: Normal chest wall appearance and motion. Nontender with no deformity. No lesions are appreciated. Cardiovascular: Regular rate and rhythm with a normal S1 and S2. No gallops, murmurs, or rubs. Normal PMI, no JVD. No pulse deficits. Respiratory: Lungs have equal breath sounds bilaterally, clear to auscultation and percussion. No rales, rhonchi or wheezes noted. No increased work of breathing, no retractions or nasal flaring. Abdomen/GI: Soft, non-tender, with normal bowel sounds. No distension or tympany. No guarding or rebound. No evidence of tenderness throughout. Back: No spinal tenderness. No costovertebral tenderness. Full range of motion. Skin: Warm, dry with normal turgor. Normal color with no rashes, no lesions, and no evidence of cellulitis. MS/ Extremity: Pulses equal, no cyanosis. Neurovascular intact. Full, normal range of motion. 20:59 Neuro: Orientation: appropriate for stated age, Mentation: responsive to voice slow to respond, unable to follow commands, Cranial nerves: grossly normal, Motor: Strength is 2/5 in the right upper and lower extremities. Vital Signs: 20:20 BP 138 / 80; Pulse 103; Resp 18 S; Temp 96.9(TE); Pulse Ox 99% on R/A; Weight 72.57 kg ca1 (R); Height 5 ft. 0 in. (152.40 cm) (R); 20:56 BP 146 / 91; Pulse 99; Resp 16; Temp 98.2; Pulse Ox 98% on R/A; ll2 21:35 BP 134 / 64; Pulse 82; Resp 18; Pulse Ox 98% on R/A; ea 20:20 Body Mass Index 31.25 (72.57 kg, 152.40 cm) ca1 NIH Stroke Scale Scores: 21:11 NIHSS Score: 11 ll2 MDM: 20:27 Patient medically screened. pkl 21:07 Data reviewed: vital signs, nurses notes, EKG, radiologic studies, CT scan. ED course: pkl Transfer to [facility] initiated. 21:27 ED course: Talked to Dr. Riggs ( Stroke fellow at [facility] ) No beds pkl available. To transfer to [facility]. 12 20:55 Order name: Basic Metabolic Panel 02/25 20:55 Order name: CBC with Diff; Complete Time: 21:42 02/25 20:55 Order name: Protime (+inr) rv 02/25 20:55 Order name: Ptt, Activated rv 02/25 21:01 Order name: Glucose, Ancillary Testing; Complete Time: 21:05 EDMS 02/25 20:39 Order name: Ct Stroke Brain Wo Cont; Complete Time: 20:55 EDMS 02/25 20:55 Order name: Stroke CXR 1 View rv 02/25 20:55 Order name: EKG; Complete Time: 20:56 rv 02/25 20:55 Order name: Accucheck; Complete Time: 21:00 rv 02/25 20:55 Order name: Cardiac monitoring; Complete Time: 21:00 02/25 20:55 Order name: EKG - Nurse/Tech; Complete Time: 21:00 rv 02/25 20:55 Order name: IV Saline Lock; Complete Time: 21:04 rv 02/25 20:55 Order name: Labs collected and sent; Complete Time: 21:04 rv 02/25 20:55 Order name: NPO; Complete Time: 21:05 rv 02/25 20:55 Order name: O2 Per Protocol; Complete Time: 21:05 rv 02/25 20:55 Order name: O2 Sat Monitoring; Complete Time: 21:05 02/25 20:55 Order name: Stroke Swallow Screen; Complete Time: 21:05 rv Administered Medications: 21:14 Drug: NS 0.9% 1000 ml Route: IV; Rate: 100 ml/hr; Site: right forearm; ea Point of Care Testing: Blood Glucose: 20:59 Blood Glucose: 144 mg/dL; ll2 Ranges: Critical Glucose Levels:Adult <50 mg/dl or >400 mg/dl <40 mg/dl or >180 mg/dl Disposition: 02/26/20 21:41 Transfer ordered to [facility]. Diagnosis is Acute CVA. 2.2 cm left thalamic bleed. - Reason for transfer: Higher level of care. - Accepting physician is Dr. Foster. - Condition is Stable. - Problem is new. - Symptoms are unchanged. NIH Stroke Scale - NIH Stroke Score Date: 02/26/2020 Time: 21:11 Total Score = 11 1a. Level of Consciousness (LOC) - 0(Alert) 1b. Level of Consciousness (LOC) (Year \T\ Age) - 2(Neither) 1c. LOC Commands (Open \T\ Closes Eyes/Pilot Plant Research Technician) - 0(Both) 2. Best Gaze (Lateral Gaze Paresis) - 1(Partial gaze palsy) 3. Visual Field Loss - 1(Partial hemianopia) 4. Facial Palsy - 1(Minor Paralysis) 5a. Left Arm: Motor (10-second hold) - 0(No drift) 5b. Right Arm: Motor (10-second hold) - 1(Drift) 6a. Left Leg: Motor (5-second hold - always test supine) - 0(No drift) 6b. Right Leg: Motor (5-second hold - always test supine) - 1(Drift) 7. Limb Ataxia (finger/nose \T\ heel/tejeda - test with eyes open) - 0(Absent) 8. Sensory Loss (pinprick arms/legs/face) - 0(Normal) 9. Best Language: Aphasia (description/naming/reading) - 1(Mild to moderate aphasia) 10. Dysarthria (speech clarity - read or repeat words) - 2(Severe) 11. Extinction and Inattention (visual/tactile/auditory/spatial/personal) - 1(Present) Initials: ll2 Signatures: Dispatcher [employer] EDMS Lawrence Garland MD MD pkl Antunez, Elena, RN RN ea Vicente, Ronaldo, RN RN rv Acob, Ольга, RN RN ca1 L[place]combe, Ligia, RN RN ll2 Corrections: (The following items were deleted from the chart) 20:41 20:39 CT-STROKE BRAIN W/O CONTRAST+CT.RAD.BRZ ordered. EDTN EDMS 21:59 21:41 02/26/2020 21:41 Transfer ordered to [facility]. Diagnosis ll2 is Acute CVA. 2.2 cm left thalamic bleed. Reason for transfer: Higher level of care. Accepting physician is Dr. Foster. Condition is Stable. Problem is new. Symptoms are unchanged. pkl
[2020-02-26 22:04] LABS: Potassium 3.4 mmol/L (3.5-5.1)
--- NOTE | 2020-02-27 08:25 | RAD REPORT ---
EXAM DESCRIPTION: RAD - Chest Single View - 02/26/2020 9:29 pm CLINICAL HISTORY: stroke, code stroke chest film COMPARISON: February 08 TECHNIQUE: AP portable chest image was obtained 02/26/2020 9:29 pm . FINDINGS: Chronic interstitial opacification present. Minimal interstitial edema or infiltrate could be masked in this setting. Lung volumes are low. No focal mass or consolidation. No diffuse or signi ficant pulmonary edema pattern. Heart and vasculature are normal. No measurable pleural effusion and no pneumothorax. No acute bony abnormality seen. Bones are osteopenic. No acute aortic findings suspected. IMPRESSION: Chronic interstitial opacification accentuated by shallow inspiration. Mild interstitial edema or infiltrate could be masked. No focal lung parenchymal process or significa nt edema pattern.
--- NOTE | 2020-02-27 13:38 | EKG ---
Test Date: 2020-02-26 Test Time: 20:46:20 Behaviour Support Teacher: DANILO MEASUREMENT RESULTS: Intervals: Rate: 90 NJ: 196 QRSD: 108 QT: 402 QTc: 491 Hollister: P: 84 NJ: 196 QRS: -64 T: 113 INTERPRETIVE STATEMENTS: Sinus rhythm with premature atrial complexes with junctional escape complexes Left axis deviation Anteroseptal infarct, age undetermined T wave abnormality, consider lateral ischemia Abnormal ECG Compared to ECG 02/28/2019 10:59:07 Atrial premature complex(es) now present Junctional escape complex(es) now present T-wave abnormality now present Possible ischemia now present Sinus bradycardia no longer present ST (T wave) deviation no longer present Myocardial infarct finding still present Electronically Signed On 02-27-20 13:37:02 WELT ROUGHER by Marco Blanton
== END 2020-02-26 21:59 | disposition short-term general hospital (02) ==
LOC: ER 20:06
DX: I61.0 Nontraumatic intracerebral hemorrhage in hemisphere, subcortical (principal); R29.711 NIHSS score 11; I10 Essential (primary) hypertension; E11.9 Type 2 diabetes mellitus without complications; I25.10 Atherosclerotic heart disease of native coronary artery without angina pectoris; Z88.0 Allergy status to penicillin; Z95.4 Presence of other heart-valve replacement
CPT/HCPCS: 93005; 85025; 80048; 36415; 85610; 82947; 85730; 70450; 71045; 99285; J7030

== ENCOUNTER 2020-08-23 15:29 | Inpatient (IN) | payer OTHER ==
--- OUTSIDE RECORDS SUMMARY | 2020-08-23 15:30 | XMS REPORT | Continuity of Care Document ---
:1940 Author Organization [facility] t Address [address] [place] [address] Care Team Providers Name Role Phone Doctor Unassigned, Name Attending Clinician Unavailable Corwin FISCHER Attending Clinician Paige FISCHER Attending Clinician Jasimn Huang MD Attending Clinician Eagle Eduardo Attending Clinician [phone] Paige FISCHER Admitting Clinician Problems This patient has no known problems. Allergies, Adverse Reactions, Alerts This patient has no known allergies or adverse reactions. Medications This patient has no known medications. Procedures This patient has no known procedures. Encounters Start End Encounter Admission Attending Care Care Encounter Source Date/Time Date/Time Type Type Clinicians Facility Department ID 2020-08-18 2020-08-18 Orders Doctor DECKER [id number] 00:00:00 00:00:00 Only [facility] mirza [id number] [facility] [id number] 2020-08-04 2020-08-07 Hospital Abimael Olivia [id number] 05:49:00 17:30:00 Encounter [place] [id number] 2020-07-07 2020-07-07 Office MARITA Huang [id number] 18 13:45:32 14:34:51 Visit Owen HENDRICKS [id number] [facility] [id number] [place] AT [id number] [address] 2020-05-21 2020-05-21 Outpatient BINH Eduardo [facility] [id number] 00:00:00 00:00:00 Garcia [id number] Eagle [id number] Results This patient has no known results.
--- NOTE | 2020-08-23 16:46 | RAD REPORT ---
EXAM DESCRIPTION: CT - Pelvis Wo Cont - 08/23/2020 4:21 pm CLINICAL HISTORY: Sacral decubitus, eval for depth COMPARISON: Abdomen Pelvis W Contrast dated 02/04/2020 TECHNIQUE: Axial 3 millimeter noncontrast images of the pelvis obtained. Sagittal and coronal reform atted images generated and reviewed. The CT scan was performed using dose optimization techniques as appropriate to a performed exam incl uding one or more of the following: Automated exposure control, adjustment of the mA and/or kV accord ing to patient size (this includes techniques or standardized protocols for targeted exams where dose is matched to indication/reason for exam) and use of iterative reconstruction technique. FINDINGS: Since the prior examination the patient has developed a large sacral soft tissue wound. Th is wound extends over a 17 centimeter craniocaudal length from the axial level L5-S1 disc distally to the axial level of the mid gluteal crease. The wound is in the soft tissues extending from the skin surface approximately 10-15 mm in depth. At the axial level of the S3 sacral body and extending to determine a tejeda of the coccyx, the wound is i n very close proximity to the posterior elements from S3 -coccyx termination. On CT imaging no erosiv e bone changes are identifiable. The wound is as large is 12 cm in transverse diameter. Numerous air densities are present in the soft tissues. On CT imaging infectious gas in the soft tissues and air a ssociated with packing material can have a similar appearance. Correlation is needed to determine if the patient has any packing material within this wound. Patient has advanced lumbosacral bone and disc degenerative change. Patient has spinal stenosis at L4 -5. Prominent SI joint degenerative changes are present. Postsurgical changes are present in the prox imal right femur. No acute bowel finding. There is infectious/inflammatory change in the superficial fatty tissues of the mid and distal gluteal crease that are in close proximity to the perianal bowel. Within the peritoneal and retroperitoneal spaces no acute findings seen. There is minimal stranding i n the fat between the rectum and anterior margin of the sacrum and coccyx. IMPRESSION: Very large midline sacral wound 17 cm in CC dimension and 12 cm in TR dimension. Numerous gas densities are present in the subcutaneous fatty tissue throughout this sacral wound. On CT imaging it is difficult to separate infectious gas in the soft tissues from air trapped within wou nd packing material. The wound is closely approximated to the posterior elements of S3-coccyx termination. No bone erosion is identified. Osteomyelitis can exist prior to imaging identifiable bone destruction.
[2020-08-23 17:39] LABS: Absolute Lymphocytes (CBC) 0.8 K/uL (0.7-4.9); Basophils % 0.2 % (0-1.3); Hematocrit 26.6 % (36.0-45.0); Lymphocytes % 4.9 % (15.3-44.8); MPV 8.1 fL (7.6-11.3); RBC Red Blood Cell Count 2.67 M/uL (3.86-4.86)
[2020-08-23 17:56] LABS: Albumin 1.6 g/dL (3.4-5.0); Bilirubin Total 0.6 mg/dL (0.2-1.0); Protein, Total 6.4 g/dL (6.4-8.2)
[2020-08-23 17:57] LABS: Potassium 3.1 mmol/L (3.5-5.1)
[2020-08-23] MEDS ORDERED: NA CHLORIDE 0.9% 1,000 ML ONE (18:37)
[2020-08-23] MEDS ORDERED: Levofloxacin 750mg IV 750 MG/150 ML BAG IV ONE (18:37)
--- NOTE | 2020-08-23 18:45 | EDPHYS ---
Physician Documentation [facility] Name: Charlene Stokes Age: 80 yrs Sex: Female : 1940 Arrival Date: 08/23/2020 Time: 15:35 Bed 19 Private MD: ED Physician Ag Gonzalez HPI: 08/23 16:09 This 80 yrs old Female presents to ER via EMS with complaints of Decubitus. pm1 16:09 The patient presents with cellulitis of the coccyx. Description: redness around edge of pm1 the current decubitus and odor. Onset: The symptoms/episode began/occurred at an unknown time. Possible cause(s): worsening of decubitus. Associated signs and symptoms: Pertinent negatives: discharge, drainage, fever. Modifying factors: the symptoms are aggravated by pressure. Severity of symptoms: in the emergency department the symptoms are actually worse. The patient has experienced similar episodes in the past, chronically. It is unknown whether or not the patient has recently seen a physician. Historical: - Allergies: 15:39 PENICILLINS; jd3 - PMHx: 15:39 Diabetes - NIDDM; CAD; Hypertension; CVA; Dementia; jd3 - PSHx: 15:39 Hysterectomy; Appendectomy; Cholecystectomy; heart valve replacement; jd3 - Immunization history:: Adult Immunizations unknown. - Social history:: Smoking status: unknown. ROS: 16:09 Constitutional: Negative for fever, chills, and weight loss, Eyes: Negative for injury, pm1 pain, redness, and discharge, ENT: Negative for injury, pain, and discharge, Neck: Negative for injury, pain, and swelling, Cardiovascular: Negative for chest pain, palpitations, and edema, Respiratory: Negative for shortness of breath, cough, wheezing, and pleuritic chest pain, Abdomen/GI: Negative for abdominal pain, nausea, vomiting, diarrhea, and constipation, Back: Negative for injury and pain, MS/Extremity: Negative for injury and deformity. 16:09 Neuro: Negative for headache, weakness, numbness, tingling, and seizure. 16:09 Skin: Positive for ulceration, of the coccyx. Exam: 16:09 Constitutional: This is a well developed, well nourished patient who is awake, alert, pm1 and in no acute distress. Head/Face: Normocephalic, atraumatic. 16:09 Eyes: Exam is negative for acute changes, Extraocular movements: no acute changes. 16:09 ENT: Mouth: Lips: normal, Oral mucosa: normal, pink and intact, moist. 16:09 Cardiovascular: Rate: normal, Rhythm: regular, Pulses: no pulse deficits are appreciated, Heart sounds: normal. 16:09 Respiratory: Exam negative for acute changes, respiratory distress, Breath sounds: are clear throughout. 16:09 Abdomen/GI: Exam negative for Inspection: abdomen appears normal, Palpation: abdomen is soft and non-tender. 16:09 Skin: Appearance: normal except for affected area, Large stage 4 decubitus present to sacral/coccyx area. 7 inches x 4 inches. No discharge or drainage present. Outer edge of decubitus with even amount of redness. Decubitus appears dry and nontender without any crepitus. Decubitus is odorous . 16:09 Neuro: Orientation: to person, Motor: moves all fours. Vital Signs: 15:37 BP 111 / 67; Pulse 56; Resp 17 S; Temp 97.7(TE); Pulse Ox 100% on R/A; Weight 68.04 kg jd3 (R); Height 5 ft. 6 in. (167.64 cm) (R); Pain 0/10; 16:30 BP 102 / 55; Pulse 55; Resp 16 S; Pulse Ox 100% on R/A; jd3 19:15 BP 114 / 73; Pulse 51; Resp 15 S; Pulse Ox 98% on R/A; ad5 20:36 BP 108 / 68; Pulse 88; Resp 16 S; Pulse Ox 96% on R/A; ad5 15:37 Body Mass Index 24.21 (68.04 kg, 167.64 cm) jd3 MDM: 15:50 Patient medically screened. pm1 18:30 Counseling: I had a detailed discussion with the patient and/or guardian regarding: the pm1 historical points, exam findings, and any diagnostic results supporting the discharge/admit diagnosis, lab results, radiology results, the need for further work-up and treatment in the hospital, Socrates Patel who is POA. 18:40 Data reviewed: vital signs. Data interpreted: Pulse oximetry: on room air is 100 %. pm1 Interpretation: normal. 18:58 Physician consultation: Trey Torres MD was called at 18:59, was contacted at 18:59, pm1 regarding consult, patient's condition, and will see patient. 08/23 15:50 Order name: CBC with Diff pm1 08/23 15:50 Order name: CMP pm1 08/23 15:50 Order name: Procalcitonin; Complete Time: 18:33 pm1 08/23 15:50 Order name: Lactate; Complete Time: 18:10 pm1 08/23 15:50 Order name: Blood Culture Adult (2) pm1 08/23 15:50 Order name: CBC with Automated Diff; Complete Time: 20:32 EDMS 08/23 15:50 Order name: CT Pelvis wo Cont; Complete Time: 16:47 pm1 08/23 15:50 Order name: Comprehensive Metabolic Panel; Complete Time: 18:10 EDMS 08/23 17:38 Order name: COVID-19 : Document "Date of Symptom Onset" if Symptomatic. sv 08/23 19:11 Order name: SARS-COV-2 RT PCR; Complete Time: 19:32 EDMS 08/23 20:26 Order name: CBC Smear Scan; Complete Time: 20:32 EDMS 08/23 20:44 Order name: Lactate Sepsis 2 HR Follow-up; Complete Time: 22:15 EDMS 08/23 15:50 Order name: IV Saline Lock; Complete Time: 17:38 pm1 08/23 19:46 Order name: CONS Physician Consult EDMS 08/23 19:47 Order name: CONS Physician Consult EDWA Administered Medications: 18:24 Drug: LevaQUIN (levofloxacin) 750 mg Volume: 150 ml; Route: IVPB; Infused Over: 90 ll1 mins; Site: right antecubital; 20:09 Follow up: IV Status: Completed infusion ad5 18:24 Drug: NS 0.9% 1000 ml Route: IV; Rate: 1000 ml; Site: right antecubital; ll1 20:29 Drug: vancoMYCIN 1 grams Route: IVPB; Infused Over: 2 hrs; Site: left forearm; ad5 22:19 Follow up: IV Status: Completed infusion; IV Intake: 200ml ad5 Disposition: 08/24 19:08 Co-signature as Attending Physician, Ag Gonzalez MD. rn Disposition: 08/23/20 18:44 Hospitalization ordered by Aaron Whitfield for Inpatient Admission. Preliminary diagnosis are Pressure ulcer of sacral region, Cellulitis of back [any part except buttock]. - Bed requested for Telemetry/MedSurg (Inpatient). - Status is Inpatient Admission. ad5 - Condition is Stable. - Problem is new. - Symptoms have improved. Signatures: Dispatcher [employer] EDWA Ag Gonzalez MD MD rn Marinas, Patrick, TRAVEL OCCUPATIONAL THERAPIST TRAVEL OCCUPATIONAL THERAPIST pm1 Marshall Patterson RN RN jd3 Pili Redmond cs8 Ferny Tan RN RN ll1 Juan Francisco Bahena ad5 Corrections: (The following items were deleted from the chart) 08/23 18:30 17:39 CORONAVIRUS ordered. EDWA EDWA 18:49 18:44 Hospitalization Ordered by Aaron Whitfield for Inpatient Admission. Preliminary pm1 diagnosis is Pressure ulcer of sacral region, stage 4. Bed requested for Telemetry/MedSurg (Inpatient). Status is Inpatient Admission. Condition is Stable. Problem is new. Symptoms have improved. pm1 18:50 18:49 08/23/2020 18:44 Hospitalization Ordered by Aaron Whitfield for Inpatient pm1 Admission. Preliminary diagnosis is Pressure ulcer of sacral region. Bed requested for Telemetry/MedSurg (Inpatient). Status is Inpatient Admission. Condition is Stable. Problem is new. Symptoms have improved. pm1 20:24 18:50 08/23/2020 18:44 Hospitalization Ordered by Aaron Whitfield for Inpatient cs8 Admission. Preliminary diagnosis is Pressure ulcer of sacral region; Cellulitis of back [any part except buttock]. Bed requested for Telemetry/MedSurg (Inpatient). Status is Inpatient Admission. Condition is Stable. Problem is new. Symptoms have improved. pm1 22:58 20:24 08/23/2020 18:44 Hospitalization Ordered by Aaron Whitfield for Inpatient ad5 Admission. Preliminary diagnosis is Pressure ulcer of sacral region; Cellulitis of back [any part except buttock]. Bed requested for Telemetry/MedSurg (Inpatient). Status is Inpatient Admission. Condition is Stable. Problem is new. Symptoms have improved. cs8
--- NOTE | 2020-08-23 18:45 | ER ---
Nurse's Notes [facility] Name: Charlene Stokes Age: 80 yrs Sex: Female : 1940 Arrival Date: 08/23/2020 Time: 15:35 Bed 19 Private MD: Diagnosis: Pressure ulcer of sacral region;Cellulitis of back [any part except buttock] Presentation: 08/23 15:35 Chief complaint: EMS states: "Daija Samuels sent pt due to worsening sacral wound. the [facility] facility it reporting that it has progressed to being red around the edges and has a bad smell.". Coronavirus screen: At this time, the client does not indicate any symptoms associated with coronavirus-19. Ebola Screen: Patient negative for fever greater than or equal to 101.5 degrees Fahrenheit, and additional compatible Ebola Virus Disease symptoms. Initial Sepsis Screen: Does the patient meet any 2 criteria? No. Patient's initial sepsis screen is negative. Does the patient have a suspected source of infection? No. Patient's initial sepsis screen is negative. Risk Assessment: Do you want to hurt yourself or someone else? Patient reports no desire to harm self or others. Onset of symptoms was August 23, 2020. 15:35 Acuity: KELLE 3 jd3 15:35 Method Of Arrival: EMS: [facility] jd3 Historical: - Allergies: 15:39 PENICILLINS; jd3 - PMHx: 15:39 Diabetes - NIDDM; CAD; Hypertension; CVA; Dementia; jd3 - PSHx: 15:39 Hysterectomy; Appendectomy; Cholecystectomy; heart valve replacement; jd3 - Immunization history:: Adult Immunizations unknown. - Social history:: Smoking status: unknown. Screenin:46 Abuse screen: Denies threats or abuse. Nutritional screening: No deficits noted. jd3 Tuberculosis screening: No symptoms or risk factors identified. Fall Risk Ambulatory Aid- None/Bed Rest/Nurse Assist (0 pts). Gait- Normal/Bed Rest/Wheelchair (0 pts) Mental Status- Overestimates/Forgets Limitations (15 pts.). Total Bartlett Fall Scale indicates No Risk (0-24 pts). Assessment: 15:47 General: Appears in no apparent distress. comfortable, Behavior is calm, cooperative. jd3 Pain: Denies pain. Neuro: Level of Consciousness is awake, alert, obeys commands, confused, Oriented to person, pt at baseline per facility. Cardiovascular: Capillary refill < 3 seconds Patient's skin is warm and dry. Respiratory: Airway is patent Respiratory effort is even, unlabored, Respiratory pattern is regular, symmetrical. GI: No signs and/or symptoms were reported involving the gastrointestinal system. : No signs and/or symptoms were reported regarding the genitourinary system. EENT: No signs and/or symptoms were reported regarding the EENT system. Derm: Skin is intact, Skin is dry, Skin is normal, Skin temperature is warm Wound noted coccyx Wound is sacral wound that is about 10 cm long and 3 cm wide with redness around the edges and foul smell. Musculoskeletal: No signs and/or symptoms reported regarding the musculoskeletal system. 16:45 Reassessment: Patient appears in no apparent distress at this time. No changes from jd3 previously documented assessment. Patient and/or family updated on plan of care and expected duration. Pain level reassessed. 17:45 Reassessment: Patient appears in no apparent distress at this time. No changes from jd3 previously documented assessment. Patient and/or family updated on plan of care and expected duration. Pain level reassessed. provider notified of elevated lactate level. 18:45 Reassessment: Patient appears in no apparent distress at this time. No changes from jd3 previously documented assessment. Patient and/or family updated on plan of care and expected duration. Pain level reassessed. 19:15 Reassessment: Patient appears in no apparent distress at this time. Patient and/or ad5 family updated on plan of care and expected duration. Pain level reassessed. Received care of pt at this time. Pt resting comfortably in stretcher, resp with ease. VSS. Will continue to monitor. Cardiovascular: Heart tones present Rhythm is regular. Respiratory: Airway is patent Respiratory effort is even, unlabored, Respiratory pattern is regular, symmetrical. 20:35 Reassessment: Patient appears in no apparent distress at this time. No changes from ad5 previously documented assessment. Patient and/or family updated on plan of care and expected duration. Pain level reassessed. Patient denies pain at this time. 22:19 Reassessment: Patient appears in no apparent distress at this time. No changes from ad5 previously documented assessment. Patient and/or family updated on plan of care and expected duration. Pain level reassessed. Patient denies pain at this time. Vital Signs: 15:37 BP 111 / 67; Pulse 56; Resp 17 S; Temp 97.7(TE); Pulse Ox 100% on R/A; Weight 68.04 kg jd3 (R); Height 5 ft. 6 in. (167.64 cm) (R); Pain 0/10; 16:30 BP 102 / 55; Pulse 55; Resp 16 S; Pulse Ox 100% on R/A; jd3 19:15 BP 114 / 73; Pulse 51; Resp 15 S; Pulse Ox 98% on R/A; ad5 20:36 BP 108 / 68; Pulse 88; Resp 16 S; Pulse Ox 96% on R/A; ad5 15:37 Body Mass Index 24.21 (68.04 kg, 167.64 cm) jd3 ED Course: 15:35 Patient arrived in ED. jd3 15:37 Triage completed. jd3 15:37 Gamaliel Coyle NP is PHCP. pm1 15:37 Ag Gonzalez MD is Attending Physician. pm1 15:38 Arm band placed on. jd3 15:46 Patient has correct armband on for positive identification. Placed in gown. Bed in low jd3 position. Call light in reach. Side rails up X2. Pulse ox on. NIBP on. 15:58 Marshall Patterson, PAU is Primary Nurse. jd3 16:21 CT Pelvis wo Cont In Process Unspecified. EDMS 17:15 Missed attempt(s): 20 gauge in left forearm. Bleeding controlled, band aid applied, sv catheter tip intact. 17:20 Missed attempt(s): 20 gauge in left forearm. Bleeding controlled, band aid applied, sv catheter tip intact. 17:26 First set of blood cultures drawn by me. Inserted saline lock: 22 gauge in right sv antecubital area, using aseptic technique. ,using aseptic technique. diffusics Blood collected. Flushed right antecubital with 5 ml normal saline. 17:38 CBC with Diff Sent. sv 17:38 CMP Sent. sv 18:44 Aaron Whitfield is Hospitalizing Provider. pm1 22:20 No provider procedures requiring assistance completed. Patient admitted, IV remains in ad5 place. Administered Medications: 18:24 Drug: LevaQUIN (levofloxacin) 750 mg Volume: 150 ml; Route: IVPB; Infused Over: 90 ll1 mins; Site: right antecubital; 20:09 Follow up: IV Status: Completed infusion ad5 18:24 Drug: NS 0.9% 1000 ml Route: IV; Rate: 1000 ml; Site: right antecubital; ll1 20:29 Drug: vancoMYCIN 1 grams Route: IVPB; Infused Over: 2 hrs; Site: left forearm; ad5 22:19 Follow up: IV Status: Completed infusion; IV Intake: 200ml ad5 Intake: 22:19 IV: 200ml; Total: 200ml. ad5 Outcome: 18:44 Decision to Hospitalize by Provider. pm1 22:20 Admitted to Med/surg via stretcher, Report called to PAU Yarbrough ad5 22:20 Condition: stable 22:20 Instructed on the need for admit. 22:58 Patient left the ED. ad5 Signatures: Dispatcher [employer] Funmi Kent RN RN sv Marinas, Patrick, SULEMAN LIQUEFACTION AND REGASIFICATION HELPER pm1 Marshall Patterson RN RN jd3 Lewis, Lynsay, RN RN ll1 Juan Francisco Bahena ad5
--- NOTE | 2020-08-23 20:16 | P.HP ---
Certification for Inpatient Patient admitted to: Inpatient With expected LOS: >2 Midnights Patient will require the following post-hospital care: None Practitioner: I am a practitioner with admitting privileges, knowledge of patient current condition, hospital course, and medical plan of care. Services: Services provided to patient in accordance with Admission requirements found in Title 42 Section 412.3 of the Code of Federal Regulations Patient History Date of Service: 08/23/20 Reason for admission: pressure ulcer History of Present Illness: Ms. Stokes is an 80 yo F with T2DM, HTN, HLD, and CAD here today from [facility] for worsening decubitus ulcer. Per her son, the ulcer was first documented 2 months ago at [facility] where Ms. Stoeks was admitted after a hip fracture. He says he thought the ulcer was improving until he saw it yesterday. Reports increase in size, strong odor, and swelling. Says Ms. Stokes will sometimes say she is sore. She takes tramadol three times daily at the [facility]. No reports of fever, nausea, or vomiting. WBC 15.9. Hgb 9.1. K 3.1. BUN 26. Glu 211. Lactate 4.5. AST 87. alk phos 225. Alb 1.6. procal 0.32. CT scan showed very large midline sacral wound 17cm by 12 cm, could not distinguish infectious gas in soft tissues from air trapped within wound packing material, no bone erosion identified. Allergies Penicillins Allergy (Mild, Verified 05/21/14 01:18) Hives Home Medications: Clopidogrel Bisulfate [Plavix] 75 mg PO DAILY 07/28/11 Glyburide [Diabeta] 1.25 mg PO DAILY 05/21/14 Metoprolol Tartrate [Lopressor] 100 mg PO DAILY 05/21/14 Rosuvastatin [Crestor*] 5 mg PO BEDTIME 05/21/14 Argin/Glut/Cahmb/Collag/Mv-Min [Edwin Packet] 1 each PO Q12H #60 powd.pack 02/11/20 Cyanocobalamin/Cobamamide [Vitamin B-12 5,000 Mcg Tab Sl] 1 each SL DAILY #30 tab.subl 02/11/20 Ferrous Gluconate 324 mg PO BID #60 tablet 02/11/20 Lactose-Reduced Food [Ensure Active High Protein] 414 ml PO TID #90 liquid 02/11/20 Metoprolol Tartrate [Lopressor*] 50 mg PO BID #60 tab 02/11/20 Pantoprazole [Protonix Tab] 40 mg PO Q12HR #60 tab 02/11/20 Potassium Chloride [K-Dur] 10 meq PO DAILY #15 tab.er.prt 02/11/20 - Past Medical/Surgical History Diabetic: Yes -: Hyperlipidemia -: HTN -: Diabetes mellitus type 2 -: CAD -: History of diverticulosis -: History of GI bleed -: appendectomy -: cholecystectomy -: hysterectomy -: heart valve replacement- aortic -: heart stents x6 - Family History Mother -: Hypertension, Other (see notes) Notes: Alzheimers Father -: Cancer Notes: lung cancer/smoker Brother -: Cancer Notes: spinal cancer at 8 mos. - Social History Smoking Status: Never smoker Alcohol use: No CD- Drugs: No Caffeine use: Yes Place of Res[facility] Review of Systems is unable to be obtained Physical Examination - Physical Exam General: In no apparent distress, Confused HEENT: Atraumatic, Normocephalic, PERRLA, Mucous membr. moist/pink, EOMI, Sclerae nonicteric Neck: Supple, 2+ carotid pulse no bruit, JVD not distended, No Thyromegaly, No LAD Respiratory: Normal air movement Cardiovascular: No edema, Normal pulses, Regular rate/rhythm, Normal S1 S2, No gallops, No rubs, No murmurs Capillary refill: <2 Seconds Gastrointestinal: Normal bowel sounds, Soft and benign, Non-distended, No ascites, No tenderness, No masses, No rebound, No guarding Musculoskeletal: No clubbing, No swelling, No contractures, No erythema, No tenderness, No warmth Integumentary: No rashes, No warmth, No cyanosis, Skin breakdown, Tenderness/swelling, Erythema, Pressure ulcer Neurological: Normal strength at 5/5 x4 extr, Normal tone, Sensation intact, Cranial nerves 3-12 intact, Abnormal speech, Abnormal affect Lymphatics: No axilla or inguinal lymphadenopathy - Studies Laboratory Data (last 24 hrs) 08/23/20 17:26: Sodium 138, Potassium 3.1 L, BUN 26 H, Creatinine 0.64, Glucose 211 H, Total Bilirubin 0.6, AST 87 H, ALT 39, Alkaline Phosphatase 225 H 08/23/20 17:26: WBC 15.90 H, Hgb 9.1 L, Hct 26.6 L, Plt Count 196 Assessment and Plan - Problems (Diagnosis) (1) Pressure ulcer Current Visit: Yes Status: Acute Qualifiers: Pressure injury location: sacral region Pressure injury stage: unspecified pressure injury stage Qualified Code(s): L89.159 - Pressure ulcer of sacral region, unspecified stage (2) Anemia Current Visit: Yes Status: Chronic Qualifiers: Anemia type: unspecified type Qualified Code(s): D64.9 - Anemia, unspecified (3) Leukocytosis Current Visit: Yes Status: Acute Qualifiers: Leukocytosis type: unspecified Qualified Code(s): D72.829 - Elevated white blood cell count, unspecified (4) Coronary arteriosclerosis Current Visit: No Status: Chronic (5) Diabetes mellitus Current Visit: No Status: Chronic (6) History of - hypertension Current Visit: No Status: Chronic (7) Hyperlipidemia Current Visit: No Status: Chronic - Plan surgery consulted, ID consulted will continue IVF, IV antibiotics, pain management as needed will repeat lactic acid sliding scale insulin and accuchecks potassium replacement protocol patient seen at [facility] for rectal bleed, was stabilized and discharged. no blee ding since discharge. will continue to monitor H/H. iron panel, b12, folate pending dietitian consulted, social work consulted BP stable, continue to monitor will reconcile and continue home medications Discharge Plan: [facility] Plan to discharge in: 72 Hours - Advance Directives Does patient have a Living Will: No Does patient have a Durable POA for Healthcare: No - Code Status/Comfort Care Code Status Assessed: Yes (full code) Critical Care: No Time Spent Managing Pts Care (In Minutes): 70
[2020-08-23 20:25] LABS: Blood Morphology Comment NOT SEEN (NOT SEEN); Platelet Estimate ADEQ; White Blood Cell Scan OK (OK)
[2020-08-23] MEDS ORDERED: NA CHLORIDE 0.9% 250 ML ONE (20:32)
[2020-08-23] MEDS ORDERED: VANCOMYCIN 1 GM/VIAL ONE (20:32)
[2020-08-23] MEDS ORDERED: MORPHINE 2 MG/ML SYR IV PRN (23:00)
[2020-08-23] MEDS: KCL 20 MEQ/100 mL IVPB 20 MEQ/100 ML BAG IV SCH (23:00)
[2020-08-23] MEDS ORDERED: ONDANSETRON 4 MG/2 ML VIAL IV PRN (23:00)
[2020-08-23] MEDS ORDERED: VANCOMYCIN 0.25 GM in NA CHLORIDE 0.9% 100 ML IV ONE (23:00)
[2020-08-23] MEDS ORDERED: ACETAMINOPHEN 500 MG TAB PO PRN (23:00)
[2020-08-23] MEDS ORDERED: Levofloxacin 750mg IV 750 MG/150 ML BAG IV SCH (23:00)
[2020-08-23] MEDS: INSULIN -REGULAR HUMAN 50 UNIT/0.5 ML ML SQ SCH (23:00)
[2020-08-23] MEDS: NA CHLORIDE 0.9% 1,000 ML IV SCH (23:00)
[2020-08-23] MEDS ORDERED: Pharmacy Consult 1 EA XX PRN (23:00)
[2020-08-24] MEDS ORDERED: NA CHLORIDE 0.9% 100 ML ONE (00:38)
[2020-08-24] MEDS ORDERED: VANCOMYCIN 1 GM/VIAL ONE (00:38)
[2020-08-24] MEDS: KCL 20 MEQ/100 mL IVPB 20 MEQ/100 ML BAG IV SCH (02:23)
[2020-08-24 02:51] VITALS: BMI 25.8
[2020-08-24 06:18] LABS: Absolute Lymphocytes (CBC) 0.6 K/uL (0.7-4.9); Basophils % 0.3 % (0-1.3); Hematocrit 24.3 % (36.0-45.0); Lymphocytes % 4.5 % (15.3-44.8); RBC Red Blood Cell Count 2.44 M/uL (3.86-4.86)
[2020-08-24 07:00] LABS: ALT/SGPT 35 U/L (12-78); AST/SGOT 53 U/L (15-37); Albumin 1.4 g/dL (3.4-5.0); Alkaline Phosphatase 196 U/L (45-117); BUN Blood Urea Nitrogen 25 mg/dL (7-18); Bicarbonate 29 mmol/L (21-32); Bilirubin Total 0.6 mg/dL (0.2-1.0); Ferritin 230.2 ng/mL (8-388); Folic Acid, (Folate) 5.3 ng/mL (3.1-17.5); Glucose Level 122 mg/dL (74-106); Phosphorus 1.9 mg/dL (2.5-4.9); Potassium 3.4 mmol/L (3.5-5.1); Protein, Total 5.5 g/dL (6.4-8.2); Sodium Level 140 mmol/L (136-145); Transferrin 95 mg/dL (200-360)
[2020-08-24 07:05] LABS: Magnesium 1.4 mg/dL (1.8-2.4)
[2020-08-24] MEDS ORDERED: Magnesium Sulfate 2gm IVPB 2 G/50 ML BAG IV ONE (07:25)
[2020-08-24] MEDS: INSULIN -REGULAR HUMAN 50 UNIT/0.5 ML ML SQ SCH ×4 (07:30→21:00)
[2020-08-24] MEDS ORDERED: POTASSIUM PHOS IN 0.9 % NACL 15 MMOL/250 ML BAG IV ONE (08:09)
[2020-08-24] MEDS ORDERED: POTASSIUM CL SA 10 MEQ TAB PO ONE (09:00)
[2020-08-24] MEDS: NA CHLORIDE 0.9% 1,000 ML IV SCH ×3 (09:00→18:42)
--- NOTE | 2020-08-24 12:08 | P.PN ---
Subjective Date of Service: 08/24/20 Chief Complaint: pressure ulcer Patient seen examined at bedside, patient has bedsore that extends from the coccyx to the lower back. Patient also has pressure sore to the left greater trochanteric area. Wound has foul order, I am both wounds show majority necrotic eschar tissue. Patient will need surgical consultation. Review of Systems General: Other (Patient reports pain sacral area) Physical Examination - Vital Signs Temperature: 98.2 F Blood Pressure: 116/59 Pulse: 80 Respirations: 16 Pulse Ox (%): 97 - Physical Exam General: Cachectic, Confused HEENT: Atraumatic, Normocephalic Neck: Supple, 2+ carotid pulse no bruit Respiratory: Clear to auscultation bilaterally, Normal air movement Cardiovascular: No edema, Normal pulses Capillary refill: <2 Seconds Gastrointestinal: Normal bowel sounds, Soft and benign Integumentary: Pressure ulcer (Unstageable decubitus ulcer extending from coccyx 2 lower back area. Base of wound shows 100% black necrotic tissue . Unstageable pressure wound to left greater show painting her hip region: Base of wound shows 100% necrotic tissue) - Studies Laboratory Data (last 24 hrs) 08/23/20 17:26: Sodium 138, Potassium 3.1 L, BUN 26 H, Creatinine 0.64, Glucose 211 H, Total Bilirubin 0.6, AST 87 H, ALT 39, Alkaline Phosphatase 225 H 08/23/20 17:26: WBC 15.90 H, Hgb 9.1 L, Hct 26.6 L, Plt Count 196 Microbiology Data (last 24 hrs): 08/23/20 18:13 Blood - Blood Anaerobic Blood Culture - Final Assessment And Plan - Plan Antibiotics: Vancomycin Start: 08/23 stop: -- Levaquin start: 08/24 stop: -- Assessment: -unstageable decubitus wound extending from coccyx to lower back -unstageable decubitus wound greater trochanteric area of left hip -diabetes mellitus type 2 -thrombocytopenia -protein caloric malnutrition -CAD Plan: -unstageable decubitus wound extending from coccyx to lower back: Measures 17 cm in CC dimension and 12 cm in TR dimension on CT imaging. CT imaging also showed -"Numerous gas densities are present in the subcutaneous fatty tissue throughout this sacral wound. On CT imaging it is difficult to separate infectious gas in the soft tissues from air trapped within wound packing material.The wound is closely approximated to the posterior elements of S3- coccyx termination. No bone erosion is identified. Osteomyelitis can exist prior to imaging identifiable bone destruction." Wound has foul odor and is infected. Recommend ordering MRI. Wound care: Apply Dakin's wet to dry dressing to area daily or p.r.n. if soiled removed. Continue broad-spectrum antibiotic coverage with vancomycin and Levaquin-probiotic started. EKG ordered to rule out any underlying QT prolongation as patient is on Levaquin. Closely monitor vancomycin trough at goal between 10-15. Closely monitor patient's renal function. Recommend ordering air mattress. Avoid direct pressure over area, reposition patient in bed every 2 hr. Recommend surgical goal consultation for surgical debridement. -left hip wound: Dakin's wet-to-dry daily. Avoid direct pressure over area and reposition patient every 2 hr. -wound cultures of left hip and coccyx to lower back wound pending -continue to trend inflammatory markers. * Procalcitonin: 08/23- 0.32 * CRP: 08/23-pending -maintain glucose under 150 for proper wound healing. -continue to monitor H&H -patient has low albumin, recommend supplemental Ensure protein drinks. Adequate nutritional status needed for proper wound healing. -patient start on multi-vitamin, zinc, and vitamin-C to promote wound healing. -medical management per primary team -continue monitor CBC and BMP -continue to monitor signs of infection -continue to monitor wounds Plan of care discussed with Dr. Munroe Thank you for consultation.
--- NOTE | 2020-08-24 12:52 | RAD REPORT ---
EXAM DESCRIPTION: MRI - MRI SACRUM W/WO - 08/24/2020 12:31 pm CLINICAL HISTORY: sacral wound COMPARISON: Pelvis Wo Cont dated 08/23/2020 TECHNIQUE: Multiplanar imaging of the sacrum and coccyx region performed using T1 weighted, T2 weigh mark, T1 stir, T2 fat saturation and T1 post-contrast fat saturation sequencing. A 16 milliliter Multi Chepe contrast volume was utilized. FINDINGS: Bilateral sacral ala, sacral vertebral body segments, coccygeal segments and the posterior elements of the sacral segments show normal marrow signal characteristics. No erosive or destructive cortical changes seen. Current findings do not support an osteomyelitis diagnosis. No enhancement or signal abnormalities in the central canal and no abnormalities of the sacral cauda equina. T1 soft tissue stranding is present in the fatty tissues between the sacrum and the rectum. There is hyperintense T2 signal at this site as well. Post-contrast images show no abnormal soft tissue enhanc ement. No soft tissue mass is seen. There is mild edema signal with minimal enhancement within the bi lateral piriformis musculature. There is edema signal as well in the inferior muscle fibers of the gl uteal musculature attaching to the lower sacrum. Large area of hypointense T1 signal is present corresponding to the broad sacral wound. Punctate very hypointense T1/T2 signal is present corresponding to air in the soft tissues. As noted on the CT penny dy, air trapped within packing material will have the same appearance of infection related care. It i s unknown if the wound has packing material present. There is hyperintense T2 signal and enhancing po stcontrast T1 signal along the periphery of the large sacral wound. A defined abscess or drainable fl uid collection is not seen. IMPRESSION: No osteomyelitis identifiable in the sacral or coccygeal bony structures. Large sacral wound in the posterior subcutaneous fatty tissues from the lumbosacral junction axial le lito inferiorly to the lower gluteal crease. No abscess or drainable fluid collection identified. Infectious/ inflammatory signal changes are present along the periphery of the large sacral wound ext ending in close proximity to the deep perianal/ distal rectal posterior wall. Air signal in the sacral wound may represent air entrapped within sacral packing material or post inf ection air in the soft tissues. Both will have similar MR appearance.
[2020-08-24] MEDS: VANCOMYCIN 1.25 GM in NA CHLORIDE 0.9% 250 ML IVPB SCH (13:57)
[2020-08-24] MEDS ORDERED: KCL 20 MEQ/100 mL IVPB 20 MEQ/100 ML BAG IV SCH (14:00)
--- NOTE | 2020-08-24 14:06 | P.PN ---
Subjective Date of Service: 08/24/20 Chief Complaint: pressure ulcer Patient is nonverbal and cannot provide any subjective complain. No reported diarrhea or vomiting. No fever. Physical Examination - Vital Signs Temperature: 98.2 F Blood Pressure: 116/59 Pulse: 80 Respirations: 16 Pulse Ox (%): 97 - Physical Exam General: In no apparent distress, Other (Awake) HEENT: Mucous membr. moist/pink Neck: Supple, JVD not distended Respiratory: Clear to auscultation bilaterally, Normal air movement Cardiovascular: No edema, Regular rate/rhythm, Normal S1 S2 Gastrointestinal: Normal bowel sounds, Soft and benign, Non-distended, No tenderness Musculoskeletal: No swelling Integumentary: Other (Large stage IV sacral decubitus ulcer) Neurological: Dementia - Studies Laboratory Data (last 24 hrs) 08/23/20 17:26: Sodium 138, Potassium 3.1 L, BUN 26 H, Creatinine 0.64, Glucose 211 H, Total Bilirubin 0.6, AST 87 H, ALT 39, Alkaline Phosphatase 225 H 08/23/20 17:26: WBC 15.90 H, Hgb 9.1 L, Hct 26.6 L, Plt Count 196 Microbiology Data (last 24 hrs): 08/23/20 18:13 Blood - Blood Blood Culture Gram Stain - Final 08/23/20 18:13 Blood - Blood Anaerobic Blood Culture - Final Assessment And Plan - Current Problems (Diagnosis) (1) Bacteremia Current Visit: Yes Status: Acute (2) Leukocytosis Current Visit: Yes Status: Acute Qualifiers: Leukocytosis type: unspecified Qualified Code(s): D72.829 - Elevated white blood cell count, unspecified (3) Pressure ulcer Current Visit: Yes Status: Acute Qualifiers: Pressure injury location: sacral region Pressure injury stage: unspecified pressure injury stage Qualified Code(s): L89.159 - Pressure ulcer of sacral region, unspecified stage (4) Diabetes mellitus Current Visit: No Status: Chronic (5) History of - hypertension Current Visit: No Status: Chronic - Plan Infectious disease input appreciated. Continue antibiotics-Levaquin and vanc. MRI of pelvis recommended by ID. General surgery to evaluate for debridement. Local wound care. Follow blood cultures and wound cultures. Feeding as tolerated. Nutritional supplementation.
[2020-08-24] MEDS: SODIUM HYPOCHLORITE 0.25% 473 ML TOP SCH ×2 (14:08→21:42)
--- NOTE | 2020-08-24 14:16 | P.CNS ---
Date of Consult: 08/24/20 Surgical consult I was asked to see this 80-year-old female regards to her sacral decubitus ulcer. Apparently she has been seen by infectious disease who are trying to arrange to have her transfer to [place]. Thank you.
[2020-08-24] MEDS ORDERED: VANCOMYCIN 1.25 GM in NA CHLORIDE 0.9% 250 ML IVPB SCH (18:00)
[2020-08-24] MEDS: Levofloxacin 750mg IV 750 MG/150 ML BAG IV SCH (21:42)
[2020-08-24] MEDS: LACTOBACILLUS/ACIDOPHILUS TAB PO SCH (21:43)
[2020-08-25] MEDS: VANCOMYCIN 1.25 GM in NA CHLORIDE 0.9% 250 ML IVPB SCH (00:11)
[2020-08-25] MEDS: NA CHLORIDE 0.9% 1,000 ML IV SCH ×3 (05:00→18:26)
[2020-08-25 06:20] LABS: Magnesium 1.7 mg/dL (1.8-2.4); Phosphorus 2.6 mg/dL (2.5-4.9); Potassium 3.8 mmol/L (3.5-5.1)
[2020-08-25] MEDS ORDERED: MAGNESIUM SULFATE 1 gm IVPB 1 GM/100 ML BAG IV ONE (07:30)
[2020-08-25] MEDS: INSULIN -REGULAR HUMAN 50 UNIT/0.5 ML ML SQ SCH ×4 (07:30→21:44)
[2020-08-25] MEDS ORDERED: POTASSIUM CL SA 10 MEQ TAB PO ONE (09:00)
[2020-08-25] MEDS: SODIUM HYPOCHLORITE 0.25% 473 ML TOP SCH ×2 (09:06→21:29)
[2020-08-25] MEDS: LACTOBACILLUS/ACIDOPHILUS TAB PO SCH ×2 (09:07→21:25)
--- NOTE | 2020-08-25 10:24 | P.PN ---
Subjective Date of Service: 08/25/20 Chief Complaint: pressure ulcer Patient seen examined at bedside, no acute events were past 24 hr. Vancomycin trough pending. Patient remains afebrile, leukocytosis still present however is down trending. Review of Systems 10-point ROS is otherwise unremarkable Physical Examination - Vital Signs Temperature: 97.7 F Blood Pressure: 115/58 Pulse: 110 Respirations: 16 Pulse Ox (%): 97 - Studies Temp Pulse Resp BP Pulse Ox 97.7 F 110 H 16 115/58 L 97 08/25/20 08:00 08/25/20 08:00 08/25/20 08:00 08/25/20 08:00 08/25/20 08:00 Active Medications Acetaminophen (Acetaminophen 500 Mg Tab) 500 mg PO Q4HP PRN PRN Reason: Pain scale 2-4 (Mild) Sodium Chloride (Ns 1000 Ml Ivbag) 1,000 mls @ 100 mls/hr IV .Q10H [facility] Last Admin: 08/25/20 09:06 Dose: 1,000 mls Documented by: Pharmacy Consult (Pharmacy Consult) 1 mls @ 1 mls/hr XX DAILYPRN PRN; Protocol PRN Reason: Vancomycin dose by pharmacy Levofloxacin/Dextrose (Levaquin 750 Mg/150 Ml Ivpb (Premix)) 750 mg in 150 mls @ 100 mls/hr IV Q24H [facility]; Protocol Last Admin: 08/24/20 21:42 Dose: 150 mls Documented by: Vancomycin HCl 1.25 gm/ Sodium (Chloride) 250 mls @ 150 mls/hr IVPB Q12H [facility] Last Admin: 08/25/20 00:11 Dose: 250 mls Documented by: Insulin Human Regular (Insulin -Regular Human 50 Unit/0.5 Ml Ml) 0 unit SQ ACHS [facility]; Protocol Last Admin: 08/25/20 07:30 Dose: Not Given Documented by: Lactobacillus Acidoph/Bulgaricus (Lactobacillus/Acidophilus Tab) 1 tab PO BID [facility] Last Admin: 08/25/20 09:07 Dose: 1 tab Documented by: Morphine Sulfate (Morphine 2 Mg/Ml Syr) 2 mg IV Q6H PRN PRN Reason: Pain scale 5-7 (Moderate) Ondansetron HCl (Ondansetron 4 Mg/2 Ml Vial) 4 mg IV Q6HP PRN PRN Reason: NAUSEA / VOMITING Sodium Chloride (Flush Normal Saline 10 Ml) 10 ml IV BID [facility] Last Admin: 08/25/20 09:08 Dose: 10 ml Documented by: Sodium Hypochlorite (Sodium Hypochlorite 0.25% 473 Ml) 1 appl TOP BID [facility] Last Admin: 08/25/20 09:06 Dose: 1 appl Documented by: Microbiology Data (last 24 hrs): 08/23/20 18:13 Blood - Blood Blood Culture Gram Stain - Final 08/23/20 18:13 Blood - Blood Anaerobic Blood Culture - Final Assessment And Plan - Plan Physical Exam: General: Cachectic, Confused HEENT: Atraumatic, Normocephalic Neck: Supple, 2+ carotid pulse no bruit Respiratory: Clear to auscultation bilaterally, Normal air movement Cardiovascular: No edema, Normal pulses Capillary refill: <2 Seconds Gastrointestinal: Normal bowel sounds, Soft and benign Integumentary: Pressure ulcer (Unstageable decubitus ulcer extending from coccyx 2 lower back area. Base of wound shows 100% black necrotic tissue . Unstageable pressure wound to left greater show painting her hip region: Base of wound shows 100% necrotic tissue) Antibiotics: Vancomycin Start: 08/23 stop: -- Levaquin start: 08/24 stop: -- Assessment: -unstageable decubitus wound extending from coccyx to lower back -unstageable decubitus wound greater trochanteric area of left hip -diabetes mellitus type 2 -thrombocytopenia -protein caloric malnutrition -CAD Plan: -unstageable decubitus wound extending from coccyx to lower back: Measures 17 cm in CC dimension and 12 cm in TR dimension on CT imaging. CT imaging also showed -"Numerous gas densities are present in the subcutaneous fatty tissue throughout this sacral wound. On CT imaging it is difficult to separate infectious gas in the soft tissues from air trapped within wound packing material.The wound is closely approximated to the posterior elements of S3- coccyx termination. No bone erosion is identified. Osteomyelitis can exist prior to imaging identifiable bone destruction." Wound has foul odor and is infected. Recommend ordering MRI. Wound care: Apply Dakin's wet to dry dressing to area daily or p.r.n. if soiled removed. Continue broad-spectrum antibiotic coverage with vancomycin and Levaquin-probiotic started. EKG ordered to rule out any underlying QT prolongation as patient is on Levaquin. Closely monitor vancomycin trough at goal between 10-15. Vancomycin trough taken on 08/25 pend ing. Closely monitor patient's renal function. Recommend ordering air mattress. Avoid direct pressure over area, reposition patient in bed every 2 hr. Recommend surgical goal consultation for surgical debridement. -left hip wound: Dakin's wet-to-dry daily. Avoid direct pressure over area and reposition patient every 2 hr. -wound cultures of left hip and coccyx to lower back wound pending -continue to trend inflammatory markers. * Procalcitonin: 08/23- 0.32 ng/mL * CRP: 07/24: 210 mg/L -maintain glucose under 150 for proper wound healing. -continue to monitor H&H -patient has low albumin, recommend supplemental Ensure protein drinks. Adequate nutritional status needed for proper wound healing. -medical management per primary team -continue monitor CBC and BMP -continue to monitor signs of infection -continue to monitor wounds Plan of care discussed with Dr. Munroe Thank you for consultation.
--- NOTE | 2020-08-25 11:58 | EKG ---
Test Date: 2020-08-24 Test Time: 13:06:04 [place] Assistant: LUZ MEASUREMENT RESULTS: Intervals: Rate: 91 MN: 170 QRSD: 108 QT: 378 QTc: 464 Beeler: P: 78 MN: 170 QRS: -61 T: 126 INTERPRETIVE STATEMENTS: Normal sinus rhythm Left anterior fascicular block Anterolateral infarct, age undetermined Abnormal ECG Compared to ECG 02/26/2020 20:46:20 Left anterior fascicular block now present Atrial premature complex(es) no longer present Junctional escape complex(es) no longer present Left-axis deviation no longer present T-wave abnormality no longer present Possible ischemia no longer present Myocardial infarct finding still present Electronically Signed On 08-25-20 11:54:04 CDT by Marco Blanton
--- NOTE | 2020-08-25 15:12 | P.WHCRV ---
Subjective Date of Service: 09/07/20 Subjective Text: This is wrong chart Physical Examination Vital Signs: Temp Pulse Resp BP Pulse Ox 97.5 F 118 H 16 90/48 L 96 08/25/20 12:00 08/25/20 12:00 08/25/20 12:00 08/25/20 12:00 08/25/20 12:00 Pain Level Pain Level 0 Assessment and Plan Patient Problems: Bacteremia (Acute) R78.81 Leukocytosis (Acute) D72.829 Pressure ulcer (Acute) L89.90 Anemia (Chronic) D64.9 Cellulitis of knee (Active) L03.119 Bite from cat (Acute 05/21/14) W55.01XA Cellulitis of hand, left (Acute 05/21/14) L03.114 Delirium (Acute 07/20/14) R41.0 Lower GI bleeding (Acute) K92.2 Mitral valvuloplasty (Acute) Obesity (Acute) E66.9 Urinary tract infectious disease (Acute 07/20/14) N39.0 Coronary arteriosclerosis (Chronic) I25.10 Diabetes mellitus (Chronic) E11.9 History of - hypertension (Chronic) Z86.79 Hyperlipidemia (Chronic) E78.5 Assessment: Plan: 1. 2. 3. 4. Next patient appointment:
--- NOTE | 2020-08-25 19:17 | P.PN ---
Subjective Date of Service: 08/25/20 Chief Complaint: pressure ulcer Patient is nonverbal and cannot provide any subjective complain. No reported diarrhea or vomiting. No issues overnight. Patient noted to be in rapid atrial fibrillation. Physical Examination - Vital Signs Temperature: 97.8 F Blood Pressure: 96/60 Pulse: 117 Respirations: 16 Pulse Ox (%): 96 - Physical Exam General: In no apparent distress, Other (Awake) HEENT: Mucous membr. moist/pink Neck: JVD not distended Respiratory: Clear to auscultation bilaterally, Normal air movement Cardiovascular: No edema, Normal S1 S2, Irregular heart rate/rhythm Gastrointestinal: Soft and benign, Non-distended, No tenderness Musculoskeletal: No swelling Integumentary: Other (Large sacral decubitus ulcer-Unstageable) - Studies Microbiology Data (last 24 hrs): 08/23/20 18:13 Blood - Blood Blood Culture Gram Stain - Final 08/23/20 18:13 Blood - Blood Anaerobic Blood Culture - Final Assessment And Plan - Current Problems (Diagnosis) (1) Bacteremia Current Visit: Yes Status: Acute (2) Leukocytosis Current Visit: Yes Status: Acute Qualifiers: Leukocytosis type: unspecified Qualified Code(s): D72.829 - Elevated white blood cell count, unspecified (3) Pressure ulcer Current Visit: Yes Status: Acute Qualifiers: Pressure injury location: sacral region Pressure injury stage: unspecified pressure injury stage Qualified Code(s): L89.159 - Pressure ulcer of sacral region, unspecified stage (4) Diabetes mellitus Current Visit: No Status: Chronic (5) History of - hypertension Current Visit: No Status: Chronic - Plan Infectious disease input appreciated. Continue antibiotics-Levaquin and vanc. MRI of pelvis recommended by ID. Awaiting general surgery input Local wound care. Blood culture growing coagulase negative Staph and GNR. Follow blood cultures and wound cultures. Feeding as tolerated. Nutritional supplementation. ID recommending LTAC placement.
[2020-08-25] MEDS: ROSUVASTATIN 10 MG TAB PO SCH (21:25)
[2020-08-25] MEDS: Levofloxacin 750mg IV 750 MG/150 ML BAG IV SCH (21:26)
[2020-08-25] MEDS: GLUCERNA SHAKE 237 ML CAN PO SCH (21:29)
[2020-08-25] MEDS: JUVEN PACKET PO SCH (21:29)
[2020-08-26] MEDS: VANCOMYCIN 1.25 GM in NA CHLORIDE 0.9% 250 ML IVPB SCH ×2 (01:18→19:00)
[2020-08-26 06:09] LABS: Absolute Lymphocytes (CBC) 0.8 K/uL (0.7-4.9); Basophils % 0.1 % (0-1.3); Hematocrit 23.2 % (36.0-45.0); Lymphocytes % 5.5 % (15.3-44.8); MPV 8.7 fL (7.6-11.3); RBC Red Blood Cell Count 2.29 M/uL (3.86-4.86)
[2020-08-26 06:29] LABS: BUN Blood Urea Nitrogen 33 mg/dL (7-18); Bicarbonate 24 mmol/L (21-32); Glucose Level 180 mg/dL (74-106); Magnesium 1.9 mg/dL (1.8-2.4); Potassium 4.2 mmol/L (3.5-5.1); Sodium Level 144 mmol/L (136-145)
[2020-08-26] MEDS: SODIUM HYPOCHLORITE 0.25% 473 ML TOP SCH ×2 (09:00→21:00)
[2020-08-26] MEDS: GLUCERNA SHAKE 237 ML CAN PO SCH ×2 (10:20→21:00)
[2020-08-26] MEDS: JUVEN PACKET PO SCH ×2 (10:21→21:00)
[2020-08-26] MEDS: INSULIN -REGULAR HUMAN 50 UNIT/0.5 ML ML SQ SCH ×4 (10:21→21:59)
[2020-08-26] MEDS: LACTOBACILLUS/ACIDOPHILUS TAB PO SCH ×2 (10:21→22:03)
[2020-08-26] MEDS: PANTOPRAZOLE 40MG TABLET PO SCH (10:22)
[2020-08-26] MEDS: FUROSEMIDE 20 MG TABLET PO SCH (10:24)
[2020-08-26] MEDS: DOCUSATE NA 100 MG CAP PO SCH (10:24)
[2020-08-26] MEDS: lisinopriL 20 MG TAB PO SCH (10:24)
[2020-08-26] MEDS: ASPIRIN 81 MG CHEWABLE TABLET PO SCH (10:26)
[2020-08-26] MEDS: METOPROLOL XL 25 MG TAB PO SCH (10:28)
[2020-08-26] MEDS: NA CHLORIDE 0.9% 1,000 ML IV SCH ×2 (10:30→22:03)
[2020-08-26] MEDS ORDERED: CEFTAZIDIME 1 GM VIAL IV SCH (17:00)
--- NOTE | 2020-08-26 17:03 | P.PN ---
Subjective Date of Service: 08/26/20 Chief Complaint: pressure ulcer Patient is nonverbal and cannot provide any subjective complain. No major changes from yesterday. She is afebrile. Physical Examination - Vital Signs Temperature: 98.1 F Blood Pressure: 115/73 Pulse: 114 Respirations: 23 Pulse Ox (%): 97 - Physical Exam General: Confused, Other (Awake) HEENT: PERRLA, Mucous membr. moist/pink, Sclerae nonicteric Neck: Supple, JVD not distended Respiratory: Clear to auscultation bilaterally, Normal air movement Cardiovascular: Normal S1 S2, Edema (Bilateral lower extremities), Irregular heart rate/rhythm Gastrointestinal: Soft and benign, Non-distended, No tenderness Musculoskeletal: No swelling Integumentary: Other (Sacral decubitus ulcer-Unstageable) Neurological: Other (Moves all extremities spontaneously.) - Studies Microbiology Data (last 24 hrs): 08/23/20 17:26 Blood - Blood Gram Stain - Final 08/23/20 18:13 Blood - Blood Aerobic Blood Culture - Final 08/23/20 18:13 Blood - Blood Blood Culture Gram Stain - Final 08/23/20 18:13 Blood - Blood Anaerobic Blood Culture - Final Assessment And Plan - Current Problems (Diagnosis) (1) Bacteremia Current Visit: Yes Status: Acute (2) Leukocytosis Current Visit: Yes Status: Acute Qualifiers: Leukocytosis type: unspecified Qualified Code(s): D72.829 - Elevated white blood cell count, unspecified (3) Pressure ulcer Current Visit: Yes Status: Acute Qualifiers: Pressure injury location: sacral region Pressure injury stage: unspecified pressure injury stage Qualified Code(s): L89.159 - Pressure ulcer of sacral region, unspecified stage (4) Diabetes mellitus Current Visit: No Status: Chronic (5) History of - hypertension Current Visit: No Status: Chronic - Plan Infectious disease is following. Wound culture and blood culture growing Proteus resistant to fluoroquinolones. Antibiotics changed to vancomycin and ceftazidime MRI of pelvis recommended by ID. MRI machine is down. Local wound care. Blood culture growing coagulase negative Staph and protein. Repeat blood culture Follow blood cultures and wound cultures. Feeding as tolerated. Nutritional supplementation. ID recommending LTAC placement. I called her son Davey at [phone] and discussed goals of care. He was made aware patient may be transferred to LTAC.
[2020-08-26] MEDS: CEFTAZIDIME 1 GM in NA CHLORIDE 0.9% 100 ML IV SCH (17:16)
[2020-08-26] MEDS: ROSUVASTATIN 10 MG TAB PO SCH (21:59)
[2020-08-27] MEDS: CEFTAZIDIME 1 GM in NA CHLORIDE 0.9% 100 ML IV SCH ×3 (00:49→17:21)
[2020-08-27 06:14] LABS: BUN Blood Urea Nitrogen 35 mg/dL (7-18); Bicarbonate 23 mmol/L (21-32); Glucose Level 86 mg/dL (74-106); Potassium 3.6 mmol/L (3.5-5.1); Sodium Level 143 mmol/L (136-145)
[2020-08-27 06:18] LABS: Absolute Lymphocytes (CBC) 0.7 K/uL (0.7-4.9); Basophils % 0.1 % (0-1.3); Lymphocytes % 4.8 % (15.3-44.8); MPV 8.4 fL (7.6-11.3); RBC Red Blood Cell Count 2.19 M/uL (3.86-4.86)
[2020-08-27 08:05] LABS: Platelet Estimate ADEQ
[2020-08-27 08:06] LABS: Blood Morphology Comment NOTED (NOT SEEN); Macrocytosis 1+; Polychromasia 1+
[2020-08-27] MEDS: INSULIN -REGULAR HUMAN 50 UNIT/0.5 ML ML SQ SCH ×4 (08:30→21:00)
[2020-08-27] MEDS ORDERED: KCL 20 MEQ/100 mL IVPB 20 MEQ/100 ML BAG IV SCH (09:00)
[2020-08-27] MEDS: FUROSEMIDE 20 MG TABLET PO SCH (09:00)
[2020-08-27] MEDS: DOCUSATE NA 100 MG CAP PO SCH (09:00)
[2020-08-27] MEDS: GLUCERNA SHAKE 237 ML CAN PO SCH ×2 (09:00→21:00)
[2020-08-27] MEDS: NA CHLORIDE 0.9% 1,000 ML IV SCH (09:00)
[2020-08-27] MEDS: METOPROLOL XL 25 MG TAB PO SCH ×2 (09:00→19:13)
[2020-08-27] MEDS: LACTOBACILLUS/ACIDOPHILUS TAB PO SCH ×2 (09:00→21:00)
[2020-08-27] MEDS: lisinopriL 20 MG TAB PO SCH (09:00)
[2020-08-27] MEDS: PANTOPRAZOLE 40MG TABLET PO SCH (09:00)
[2020-08-27] MEDS: SODIUM HYPOCHLORITE 0.25% 473 ML TOP SCH ×3 (09:00→21:00)
[2020-08-27] MEDS: ASPIRIN 81 MG CHEWABLE TABLET PO SCH (09:00)
[2020-08-27] MEDS: JUVEN PACKET PO SCH ×2 (09:00→21:00)
--- NOTE | 2020-08-27 09:46 | P.PN ---
Subjective Date of Service: 08/27/20 Chief Complaint: pressure ulcer Patient seen examined at bedside, sleeping. Increase in WBC noted today. F no patient is also hypotensive and tachycardic. Patient is at higher risk for sepsis due to multiple wounds, continue to monitor very closely. Repeat blood cultures ordered. Review of Systems 10-point ROS is otherwise unremarkable Physical Examination - Vital Signs Temperature: 97.3 F Blood Pressure: 113/62 Pulse: 110 Respirations: 16 Pulse Ox (%): 98 - Studies Temp Pulse Resp BP Pulse Ox 97.3 F 110 H 16 113/62 98 08/27/20 04:00 08/27/20 04:00 08/27/20 04:00 08/27/20 04:00 08/27/20 04:00 Laboratory Last Values WBC 15.90 K/uL (4.3-10.9) H 08/23/20 17:26 RBC 2.67 M/uL (3.86-4.86) L 08/23/20 17:26 Hgb 9.1 g/dL (12.0-15.0) L 08/23/20 17:26 Hct 26.6 % (36.0-45.0) L 08/23/20 17:26 MCV 99.7 fL (80-100) D 08/23/20 17:26 MCH 34.2 pg (27.0-35.0) 08/23/20 17:26 MCHC 34.4 g/dL (32.0-36.0) 08/23/20 17:26 RDW 14.3 % (12.1-15.2) 08/23/20 17:26 Plt Count 196 K/uL (152-406) 08/23/20 17:26 MPV 8.1 fL (7.6-11.3) 08/23/20 17:26 Neutrophils % 92.2 % (41.7-73.7) H 08/23/20 17:26 Lymphocytes % 4.9 % (15.3-44.8) L 08/23/20 17:26 Monocytes % 2.6 % (3.3-12.3) L 08/23/20 17:26 Eosinophils % 0.1 % (0-4.4) 08/23/20 17:26 Basophils % 0.2 % (0-1.3) 08/23/20 17:26 Absolute Neutrophils 14.7 K/uL (1.8-8.0) H 08/23/20 17:26 Absolute Lymphocytes 0.8 K/uL (0.7-4.9) 08/23/20 17:26 Absolute Monocytes 0.4 K/uL (0.1-1.3) 08/23/20 17: Absolute Eosinophils 0.0 K/uL (0-0.5) 08/23/20 17:26 Absolute Basophils 0.0 K/uL (0-0.5) 08/23/20 17:26 Platelet Estimate Adeq 08/23/20 17:26 Clumped Platelets Few 08/23/20 17:26 Morphology Comment Not seen (NOT SEEN) 08/23/20 17:26 Sodium 138 mmol/L (136-145) 08/23/20 17:26 Potassium 3.1 mmol/L (3.5-5.1) L 08/23/20 17:26 Chloride 101 mmol/L (98-107) 08/23/20 17:26 Carbon Dioxide 28 mmol/L (21-32) 08/23/20 17:26 BUN 26 mg/dL (7-18) H 08/23/20 17:26 Creatinine 0.64 mg/dL (0.55-1.3) 08/23/20 17:26 Estimated GFR 89 mL/min (=/>90) L 08/23/20 17:26 Glucose 211 mg/dL (74-106) H 08/23/20 17:26 Lactic Acid 4.5 mmol/L (0.4-2.0) H* 08/23/20 17:26 Calcium 8.4 mg/dL (8.5-10.1) L 08/23/20 17:26 Total Bilirubin 0.6 mg/dL (0.2-1.0) 08/23/20 17:26 AST 87 U/L (15-37) H 08/23/20 17:26 ALT 39 U/L (12-78) 08/23/20 17:26 Alkaline Phosphatase 225 U/L (45-117) H 08/23/20 17:26 Serum Total Protein 6.4 g/dL (6.4-8.2) 08/23/20 17:26 Albumin 1.6 g/dL (3.4-5.0) L 08/23/20 17:26 Globulin 4.8 g/dL (2.3-3.5) H 08/23/20 17:26 Albumin/Globulin Ratio 0.3 (1.1-1.8) L 08/23/20 17:26 Procalcitonin 0.32 ng/mL (<0.050) H 08/23/20 17:26 SARS-CoV-2 RNA (RT-PCR) Negative (NEGATIVE) 08/23/20 18:00 Smear Scan Ok (OK) 08/23/20 17:26 Microbiology Data (last 24 hrs): 08/23/20 17:26 Blood - Blood Gram Stain - Final 08/23/20 18:13 Blood - Blood Aerobic Blood Culture - Final 08/23/20 18:13 Blood - Blood Blood Culture Gram Stain - Final 08/23/20 18:13 Blood - Blood Anaerobic Blood Culture - Final Assessment And Plan - Plan Physical Exam: General: Cachectic, Confused HEENT: Atraumatic, Normocephalic Neck: Supple, 2+ carotid pulse no bruit Respiratory: Clear to auscultation bilaterally, Normal air movement Cardiovascular: No edema, Normal pulses Capillary refill: <2 Seconds Gastrointestinal: Normal bowel sounds, Soft and benign Integumentary: Pressure ulcer (Unstageable decubitus ulcer extending from coccyx 2 lower back area. Base of wound shows 100% black necrotic tissue . Unstageable pressure wound to left greater show painting her hip region: Base of wound shows 100% necrotic tissue) Deep tissue injury to her right heel. Antibiotics: Vancomycin Start: 08/23 stop: -- ceftazidime start: 08/26 stop: -- Assessment: -unstageable decubitus wound extending from coccyx to lower back -unstageable decubitus wound greater trochanteric area of left hip -right heel deep tissue injury -diabetes mellitus type 2 -thrombocytopenia -protein caloric malnutrition -CAD Plan: Increased WBC-15.0 with a left shift. Patient is also tachycardic and hypotensive. Continue to monitor very closely as patient as at higher risk of sepsis due to multiple wounds. Repeat blood cultures ordered. Afebrile at this time. -unstageable decubitus wound extending from coccyx to lower back: Measures 17 cm in CC dimension and 12 cm in TR dimension on CT imaging. CT imaging also showed -"Numerous gas densities are present in the subcutaneous fatty tissue throughout this sacral wound. On CT imaging it is difficult to separate infectious gas in the soft tissues from air trapped within wound packing material.The wound is closely approximated to the posterior elements of S3- coccyx termination. No bone erosion is identified. Osteomyelitis can exist prior to imaging identifiable bone destruction." Wound has foul odor and is infected. Recommend ordering MRI. Wound care: Apply Dakin's wet to dry dressing to area daily or p.r.n. if soiled removed. Air mattress place. Avoid direct pressure over area, reposition patient in bed every 2 hr. Patient needs surgical debridement of sacral and left hip wound. 2 right heel: Continue to offload. -Levaquin discontinued and patient started on ceftazidime based off of sensitivity results from culture reports. Cultures: * blood: 08/23: grew Proteus mirabilis * blood: 08/26: pending * sacral wound: 08/23: grew Proteus mirabilis and gram neative rods * left hip wound: 08/23: grew Proteus mirabilis and gram neative rods Continue broad-spectrum antibiotic coverage with vancomycin and ceftazidime- probiotic started. Closely monitor vancomycin trough at goal between 10-15. Vancomycin trough taken on 08/26-was 21.5, repeat vanc trough on 08/27 pending. Closely monitor patient's renal function. -continue to trend inflammatory markers. * Procalcitonin: 08/23- 0.32 ng/mL. 08/26: pending * CRP: 07/24: 210 mg/L. 08/26: pending -maintain glucose under 150 for proper wound healing. -continue to monitor H&H -patient has low albumin, recommend supplemental Ensure protein drinks. Adequate nutritional status needed for proper wound healing. -medical management per primary team -continue monitor CBC and BMP -continue to monitor signs of infection -continue to monitor wounds Plan of care discussed with Dr. Munroe Thank you for consultation.
--- NOTE | 2020-08-27 13:36 | P.DS ---
Admission Date: 08/23/20 Discharge Date: 08/28/20 Disposition: Discharge Condition: Reason for Admission: pressure ulcer - Problems (1) Bacteremia Status: Acute (2) Leukocytosis Status: Acute Qualifiers: Leukocytosis type: unspecified Qualified Code(s): D72.829 - Elevated white blood cell count, unspecified (3) Pressure ulcer Status: Acute Qualifiers: Pressure injury location: sacral region Pressure injury stage: unspecified pressure injury stage Qualified Code(s): L89.159 - Pressure ulcer of sacral region, unspecified stage (4) Diabetes mellitus Status: Chronic (5) History of - hypertension Status: Chronic Brief History of Present Illness: 80 yo F with T2DM, HTN, HLD, and CAD was transferred from the custodial for worsening decubitus ulcer. Son stated he impressed upon the MA to have her mother transferred to the hospital due to the worsening decubitus ulcer. Per her son, the ulcer was first documented 2 months ago at [facility] where Ms. Stokes was admitted after a hip fracture. He reported increase in size, strong odor, and swelling. No reports of fever, nausea, or vomiting. WBC 15.9. Hgb 9.1. K 3.1. BUN 26. Glu 211. Lactate 4.5. AST 87. alk phos 225. Alb 1.6. procal 0.32. CT scan showed very large midline sacral wound 17cm by 12 cm, could not distinguish infectious gas in soft tissues from air trapped within wound packing material, no bone erosion identified. Patient was hospitalized for further management. Hospital Course: Wound culture and blood culture growing Proteus resistant to fluoroquinolones. Sensitive to ceftazidime. She was initially on Levaquin and vancomycin. Antibiotics changed to vancomycin and ceftazidime Local wound care done. Blood culture growing coagulase negative Staph and Proteus. Coagulase negative Staph is likely a skin contaminant. Repeat blood culture 08/27/20 yielded no growth. Patient seen and evaluated by Dr. Torres. Oral intake was poor. Patient was started on IV fluid with dextrose. She was supposed to be transferred to LTAC to continue antibiotics and wound care. Patient's mental status decline yesterday, she developed hypotension, patient resuscitated with normal saline and IV albumin, central line was placed and patient transferred to the ICU. Blood pressure responded to resuscitation dole was still borderline hypotensive. Mental status did not improve. Patient suddenly developed asystole. Her son Davey confirmed DNR status. Patient on 08/28/2020 at 1045 hours. Vital Signs/Physical Exam: Temp Pulse Resp BP Pulse Ox 97.3 F 110 H 16 113/62 98 08/27/20 09:52 08/27/20 09:52 08/27/20 09:52 08/27/20 09:52 08/27/20 09:52 Laboratory Data at Discharge: WBC 15.80 K/uL (4.3-10.9) H D 08/27/20 05:25 Hgb 7.3 g/dL (12.0-15.0) L 08/27/20 05:25 Hct 22.0 % (36.0-45.0) L 08/27/20 05:25 Plt Count 173 K/uL (152-406) 08/27/20 05:25 Sodium 143 mmol/L (136-145) 08/27/20 05:25 Potassium 3.6 mmol/L (3.5-5.1) 08/27/20 05:25 BUN 35 mg/dL (7-18) H 08/27/20 05:25 Creatinine 0.47 mg/dL (0.55-1.3) L 08/27/20 05:25 Glucose 86 mg/dL (74-106) 08/27/20 05:25 Phosphorus 2.6 mg/dL (2.5-4.9) 08/25/20 05:51 Magnesium 1.9 mg/dL (1.8-2.4) 08/26/20 05:35 Total Bilirubin 0.6 mg/dL (0.2-1.0) 08/24/20 06:05 AST 53 U/L (15-37) H 08/24/20 06:05 ALT 35 U/L (12-78) 08/24/20 06:05 Alkaline Phosphatase 196 U/L (45-117) H 08/24/20 06:05 Home Medications: Rosuvastatin [Crestor*] 20 mg PO BEDTIME 05/21/14 Aspirin 81 mg PO DAILY 08/24/20 Docusate Sodium 100 mg PO DAILY 08/24/20 Furosemide 20 mg PO DAILY 08/24/20 Metoprolol Succinate 25 mg PO DAILY 08/24/20 Pantoprazole Sodium 40 mg PO DAILY 08/24/20 Glucerna Shake [Glucerna*] 237 ml PO BID can 08/27/20 Insulin -Regular Human [Novolin -R*] See Protocol SQ ACHS ml 08/27/20 Edwin [Edwin*] 1 pkt PO BID powd.pack 08/27/20 Diet: ADA Activity: Fall precautions Followup: Simone Munroe MD [ACTIVE - CAN ADMIT] - 1-2 Days Unknown,U [Primary Care Provider] - Time spent managing pt's care (in minutes): 35
[2020-08-27] MEDS ORDERED: D5NS KCL 20MEQ 20 MEQ/1,000 ML BAG IV SCH (18:00)
--- NOTE | 2020-08-27 18:45 | P.PN ---
Subjective Date of Service: 08/27/20 Chief Complaint: pressure ulcer Nursing staff report patient has been sleeping most of the day and has not been eating or drinking. She is afebrile. Physical Examination - Vital Signs Temperature: 98.0 F Blood Pressure: 101/56 Pulse: 126 Respirations: 30 Pulse Ox (%): 94 - Physical Exam General: In no apparent distress, Other (Drowsy) HEENT: Mucous membr. moist/pink, Sclerae nonicteric Neck: Supple, JVD not distended Respiratory: Clear to auscultation bilaterally, Normal air movement Cardiovascular: Normal S1 S2, Edema (Bilateral upper extremity edema), Irregular heart rate/rhythm Gastrointestinal: Normal bowel sounds, Soft and benign, Non-distended, No tenderness Musculoskeletal: Swelling (Bilateral upper extremities) Integumentary: Other (Sacral decubitus ulcer) - Studies Microbiology Data (last 24 hrs): 08/23/20 17:26 Blood - Blood Gram Stain - Final Assessment And Plan - Current Problems (Diagnosis) (1) Bacteremia Current Visit: Yes Status: Acute (2) Leukocytosis Current Visit: Yes Status: Acute Qualifiers: Leukocytosis type: unspecified Qualified Code(s): D72.829 - Elevated white blood cell count, unspecified (3) Pressure ulcer Current Visit: Yes Status: Acute Qualifiers: Pressure injury location: sacral region Pressure injury stage: unspecified pressure injury stage Qualified Code(s): L89.159 - Pressure ulcer of sacral region, unspecified stage (4) Diabetes mellitus Current Visit: No Status: Chronic (5) History of - hypertension Current Visit: No Status: Chronic - Plan Infectious disease is following. Wound culture and blood culture growing Proteus resistant to fluoroquinolones. Continue vancomycin and ceftazidime MRI of pelvis recommended by ID. Local wound care. Blood culture growing coagulase negative Staph and protein. Repeat blood culture Follow blood cultures and wound cultures. Feeding as tolerated. Nutritional supplementation. ID recommending LTAC placement. Patient seen by general surgery-Dr. Torres. Debridement deferred to be done at LT. I called her son Davey at [phone] and discussed goals of care. He agrees to transfer to LT.
[2020-08-27] MEDS ORDERED: NA CHLORIDE 0.9% 500 ML IV ONE ×2 (19:57→21:01)
[2020-08-27] MEDS ORDERED: NA CHLORIDE 0.9% 500 ML ONE (20:13)
[2020-08-27] MEDS ORDERED: D5 0.45 NS 0 ML IV ONE (20:14)
[2020-08-27] MEDS: D5 0.9 NS 1,000 ML IV SCH (20:15)
[2020-08-27] MEDS ORDERED: D5 0.9 NS 1,000 ML IV ONE (20:15)
[2020-08-27] MEDS ORDERED: D50W 25 GM/50 ML SYRINGE IV PRN (20:58)
[2020-08-27] MEDS: ROSUVASTATIN 10 MG TAB PO SCH (21:00)
[2020-08-27] MEDS ORDERED: VANCOMYCIN 1.25 GM in NA CHLORIDE 0.9% 250 ML IVPB SCH (21:00)
[2020-08-27 21:07] LABS: Hematocrit 24.3 % (36.0-45.0)
[2020-08-27] MEDS ORDERED: D50W 50 ML IV ONE (21:20)
[2020-08-27] MEDS ORDERED: ALBUMIN HUMAN 25% 100 ML IV ONE (22:12)
[2020-08-28] MEDS: CEFTAZIDIME 1 GM in NA CHLORIDE 0.9% 100 ML IV SCH ×2 (01:39→10:09)
[2020-08-28] MEDS ORDERED: D5W 250 ML IV ONE (01:58)
[2020-08-28] MEDS ORDERED: Phenylephrine HCl 10 MG/ML 1 ML VIAL ONE (01:58)
[2020-08-28 03:48] VITALS: O2SAT 100
[2020-08-28 03:54] LABS: Urine Appearance CLEAR (Clear); Urine Bilirubin NEGATIVE (Negative); Urine Blood NEGATIVE (Negative); Urine Color DK YELLOW (Yellow); Urine Glucose NEGATIVE (Negative); Urine Protein 1+ (Negative); Urine Specific Gravity 1.025 (1.005-1.030)
[2020-08-28 03:58] LABS: Urine Microscopic Reflex ORDER UMIC
[2020-08-28 04:28] LABS: Urine Bacteria >50 /HPF (<20); Urine RBC <5 /HPF (NONE SEEN)
[2020-08-28 04:29] LABS: Urine Amorphous Sediment 3+ /HPF (NONE SEEN); Urine Coarse Granular Casts FEW /LPF (NONE SEEN); Urine Mucus 2+ /HPF (NONE SEEN)
[2020-08-28] MEDS: D5 0.9 NS 1,000 ML IV SCH (06:00)
[2020-08-28] MEDS: INSULIN -REGULAR HUMAN 50 UNIT/0.5 ML ML SQ SCH (07:30)
[2020-08-28] MEDS: PANTOPRAZOLE 40MG TABLET PO SCH (09:00)
[2020-08-28] MEDS: GLUCERNA SHAKE 237 ML CAN PO SCH (09:00)
[2020-08-28] MEDS: JUVEN PACKET PO SCH (09:00)
[2020-08-28] MEDS: FUROSEMIDE 20 MG TABLET PO SCH (09:00)
[2020-08-28] MEDS: DOCUSATE NA 100 MG CAP PO SCH (09:00)
[2020-08-28] MEDS: lisinopriL 20 MG TAB PO SCH (09:00)
[2020-08-28] MEDS: ASPIRIN 81 MG CHEWABLE TABLET PO SCH (09:00)
[2020-08-28] MEDS: METOPROLOL XL 25 MG TAB PO SCH (09:00)
[2020-08-28] MEDS: LACTOBACILLUS/ACIDOPHILUS TAB PO SCH (09:00)
[2020-08-28 09:40] VITALS: TEMP 97.8
[2020-08-28 11:47] VITALS: BP 94/73
[2020-08-28] MEDS ORDERED: VANCOMYCIN 1.25 GM in NA CHLORIDE 0.9% 250 ML IVPB SCH ×2 (20:00→21:00)
== END 2020-08-28 19:35 | disposition expired | DRG 593 ==
LOC: ER 15:29 → ERHOLD 19:46 → 2ND 20:45 → ERHOLD 08-28 00:30
PROVIDERS: ADMIT Internal Medicine; ATTEND Internal Medicine
DX: L89.159 Pressure ulcer of sacral region, unspecified stage (principal); E46 Unspecified protein-calorie malnutrition; R78.81 Bacteremia; L03.119 Cellulitis of unspecified part of limb; L03.114 Cellulitis of left upper limb; K92.2 Gastrointestinal hemorrhage, unspecified; I01.1 Acute rheumatic endocarditis; N39.0 Urinary tract infection, site not specified; Z16.23 Resistance to quinolones and fluoroquinolones; L89.220 Pressure ulcer of left hip, unstageable; L89.616 Pressure-induced deep tissue damage of right heel; E11.9 Type 2 diabetes mellitus without complications; D69.6 Thrombocytopenia, unspecified; I25.10 Atherosclerotic heart disease of native coronary artery without angina pectoris; E78.5 Hyperlipidemia, unspecified; D72.829 Elevated white blood cell count, unspecified; I48.91 Unspecified atrial fibrillation; I10 Essential (primary) hypertension; D64.9 Anemia, unspecified; B96.4 Proteus (mirabilis) (morganii) as the cause of diseases classified elsewhere; R41.0 Disorientation, unspecified; R00.0 Tachycardia, unspecified; W55.01XA Bitten by cat, initial encounter; Z66 Do not resuscitate; Z86.73 Personal history of transient ischemic attack (TIA), and cerebral infarction without residual deficits; Z90.710 Acquired absence of both cervix and uterus; Z90.49 Acquired absence of other specified parts of digestive tract; Z88.0 Allergy status to penicillin; Z95.2 Presence of prosthetic heart valve; Z79.02 Long term (current) use of antithrombotics/antiplatelets; Z79.899 Other long term (current) drug therapy; Z68.25 Body mass index [BMI] 25.0-25.9, adult; Z20.822 Contact with and (suspected) exposure to COVID-19
CPT/HCPCS: 36415; 72192; 72197; 80048; 80053; 80202; 81003; 81015; 82607; 82728; 82746; 82947; 83540; 83605; 83735; 84100; 84132; 84145; 84466; 85014; 85018; 85025; 86140; 87040; 87070; 87077; 87086; 87088; 87186; 87205; 93005; 94760; 99285; A9577; J0713; J2270; J2370; J3370; J3475; J3480; J7030; J7040; J7042; J7050; J7060; J7799; P9047; U0003